=== PATIENT | female | born 1950 | race Hispanic/Latino ===

== ENCOUNTER 2017-09-20 06:21 | Day surgery (SDC) | payer OTHER ==
[2017-09-15 11:00] LABS: Absolute Lymphocytes (CBC) 1.3 K/uL (0.7-4.9); Absolute Monocytes 0.4 K/uL (0.1-1.3); Absolute Neutrophil 2.6 K/uL (1.8-8.0); Basophils % 0.7 % (0-1.3); Eosinophils % 1.7 % (0-4.4); Hematocrit 42.3 % (36.0-45.0); Lymphocytes % 30.3 % (15.3-44.8); MCH 29.1 pg (27.0-35.0); MCV 86.1 fL (80-100); MPV 10.1 fL (7.6-11.3); Monocytes % 8.4 % (3.3-12.3); RBC Red Blood Cell Count 4.91 M/uL (3.86-4.86)
[2017-09-15 11:02] LABS: Protime INR 0.94
[2017-09-15 11:08] LABS: BUN Blood Urea Nitrogen 17 mg/dL (6-20); Bicarbonate 28 mEq/L (21-31); Glucose Level 207 mg/dL (65-120); Potassium 4.6 mEq/L (3.6-5.0); Sodium Level 139 mEq/L (135-145)
--- NOTE | 2017-09-15 13:37 | EKG ---
Test Date: 2017-09-15 Test Time: 10:09:57 Editorial Project Manager: LORENA MEASUREMENT RESULTS: Intervals: Rate: 84 DC: 134 QRSD: 80 QT: 364 QTc: 430 [place]: P: 1 DC: 134 QRS: -4 T: 19 INTERPRETIVE STATEMENTS: Normal sinus rhythm Possible Inferior infarct, age undetermined Cannot rule out Anterior infarct, age undetermined Abnormal ECG Compared to ECG 02/23/2016 10:01:14 Myocardial infarct finding now present Electronically Signed On 09-15-17 13:36:33 CDT by Niko Velez
[2017-09-20] MEDS ORDERED: NA CIT/CITRIC AC 30 ML ORAL UDC ONE (06:37)
[2017-09-20] MEDS ORDERED: NA CHLORIDE 0.9% 1,000 ML ONE (06:47)
[2017-09-20] MEDS ORDERED: CEFAZOLIN/SWI 1gm 1 GM/10 ML SYR ONE (06:47)
[2017-09-20] MEDS ORDERED: PROPOFOL 200 MG/20 ML VIAL IV ONE ×2 (07:22→11:07)
[2017-09-20] MEDS ORDERED: LIDOCAINE 1% MPF 5 ML VIAL ONE ×2 (07:23→11:07)
[2017-09-20] MEDS ORDERED: FENTANYL CITR 100 MCG/2 ML ONE ×2 (07:23→11:07)
[2017-09-20] MEDS ORDERED: MIDAZOLAM HCL 2 MG/2 ML INJ ONE ×2 (07:23→11:07)
[2017-09-20] MEDS ORDERED: ONDANSETRON HCL 40 MG/20 ML VIAL ONE (07:23)
[2017-09-20] MEDS: BUPIVACAINE 0.25% PF 30 ML VIAL ONE ×2 (08:02→08:25)
--- NOTE | 2017-09-20 08:46 | P.BOP ---
Preoperative diagnosis: left carpal tunnel syndrome, left long finger trigger digit Postoperative diagnosis: same Primary procedure: left carpal tunnel release Secondary procedure: left long finger A1 micah release Sales Development Manager: NONE,NONE Estimated blood loss: <5cc Specimen: none Findings: see dictation Anesthesia: General Complications: None Implants: none Fluids & blood products: per anesthesia: TT: 33 mins @ 250mmHg Transferred to: Recovery Room Condition: Good
[2017-09-20 14:06] VITALS: BP 115/70; TEMP 97.1; O2SAT 97
--- NOTE | 2017-09-21 12:07 | OP ---
Date of Procedure: 09/20/2017 Surgeon: Tano Gay MD Preoperative Diagnoses: 1.Left carpal tunnel syndrome. 2.Left long finger trigger digit. Postoperative Diagnoses: 1.Left carpal tunnel syndrome. 2.Left long finger trigger digit. Procedure Performed: 1.Left open carpal tunnel release. 2.Left long finger A1 micah release. Anesthesia: General LMA. Estimated Blood Loss: Less than 5 cc. Complications: None. Implants: None. Fluids: Per Anesthesia record. Tourniquet Time: 33 minutes at 250 mmHg. Indication For Procedure: Lala is a 67-year-old female, who presents to my clinic with signs and s ymptoms and EMG nerve conduction study findings consistent with left carpal tunnel syndrome and left long finger trigger digit. I discussed with the patient at length risks and benefits associated with operative and nonoperative treatment. She expressed understanding and elected to proceed with opera tive treatment. Description Of Procedure: After informed consent was obtained, the patient was identified in the pre operative holding area. The left upper extremity was marked, left long finger was marked. The patie nt was then taken back to the operating room, transferred to the operative table in a supine fashion, and placed under general LMA anesthesia. The left upper extremity was then prepped and draped in [facility] sterile fashion. A time-out was initiated. The correct patient and procedure were confirmed and identified. The patient did receive her preoperative prophylactic antibiotics. The left upper extr emity was then exsanguinated and the tourniquet was inflated to 250 mmHg. Attention was first taken to the carpal tunnel. An approximately 2.5 cm longitudinal incision was made just ulnar to the javed r thenar crease. Dissection was then taken down to the palmar fascia. A [place] elevator was then tere niall deep to the palmar fascial and distal to proximal fashion to protect the median nerve, and a jaz n 15-blade was then used to release the transverse carpal ligament in a distal to proximal fashion, a gain the [place] elevator was protecting the nerve throughout the release. Metzenbaum was then used to complete the release as well as remove any fascial bands remaining. Using direct visualization, it was noted that the transverse carpal ligament was released fully with the median nerve deep to it. N ext, attention was taken to the long finger A1 micah release. Approximately 1 cm incision was made and centered over the A1 micah metacarpal head of the volar aspect of the long finger. Dissection w as then taken down to the A1 micah and a 15-blade was then used to release A1 micah over the flexor tendon. Once full release of the A1 micah was completed, there was noted to be some synovial fluid that was expressed from within sheath. A Ragnell was then used to bring the flexor tendons out the incision to ensure full release of the A1 micah. There was no triggering noted. The wounds were th en irrigated thoroughly with normal saline and skin was approximated using a 5-[address] essings were placed. The patient was awakened and transferred to the PACU in stable condition. Postoperative Plan: She will be nonweightbearing of her left upper extremity. She will begin workin g on range of motion exercises of her left hand. She will follow up in my clinic next week for wound check. JUANY/KADI Voice ID: [id number] Report ID: [id number]
== END 2017-09-20 09:40 | disposition home or self-care (01) ==
LOC: OR 06:21
PROVIDERS: ATTEND Orthopaedic Surgery Sports Medicine
PROC: 01N50ZZ Release Median Nerve, Open Approach (ICD-10-PCS; principal; 2017-09-20 07:30)
PROC: 0LN80ZZ Release Left Hand Tendon, Open Approach (ICD-10-PCS; 2017-09-20 07:30)
DX: G56.02 Carpal tunnel syndrome, left upper limb (principal); M65.332 Trigger finger, left middle finger; E11.9 Type 2 diabetes mellitus without complications; I10 Essential (primary) hypertension; K21.9 Gastro-esophageal reflux disease without esophagitis; Z95.0 Presence of cardiac pacemaker; Z79.01 Long term (current) use of anticoagulants; Z79.82 Long term (current) use of aspirin; Z86.73 Personal history of transient ischemic attack (TIA), and cerebral infarction without residual deficits; Z83.3 Family history of diabetes mellitus; Z82.49 Family history of ischemic heart disease and other diseases of the circulatory system
CPT/HCPCS: 26055; 36415; 64721; 80048; 82962 ×2; 85025; 85610; 85730; 93005; J0690; J2250; J2405; J3010; J7030

== ENCOUNTER 2017-10-12 23:34 | Emergency (ER) | payer OTHER ==
[2017-10-13 00:23] LABS: Absolute Monocytes 0.4 K/uL (0.1-1.3); Absolute Neutrophil 3.1 K/uL (1.8-8.0); Basophils % 0.4 % (0-1.3); Eosinophils % 1.2 % (0-4.4); Hematocrit 42.3 % (36.0-45.0); Lymphocytes % 35.4 % (15.3-44.8); MCH 29.1 pg (27.0-35.0); MCV 88.1 fL (80-100); MPV 10.6 fL (7.6-11.3); Monocytes % 7.5 % (3.3-12.3)
[2017-10-13 01:23] LABS: Urine Blood TRACE (NEG); Urine Glucose 2+ (NEG); Urine Protein NEGATIVE (NEG); Urine Specific Gravity 1.015 (1.005-1.030); Urine pH 5.5 (5.0-7.0)
[2017-10-13 02:06] LABS: Urine Bacteria >50 /HPF (<20); Urine Culture Reflex Order REFLEXED; Urine RBC NONE SEEN /HPF (NONE SEEN)
[2017-10-13 03:01] LABS: Protime INR 1.01
[2017-10-13 03:16] LABS: ALT/SGPT 21 U/L (12-78); AST/SGOT 19 U/L (15-37); Albumin 3.5 g/dL (3.4-5.0); Alkaline Phosphatase 148 U/L (45-117); BUN Blood Urea Nitrogen 17 mg/dL (7-18); Bicarbonate 28 mmol/L (21-32); Bilirubin Direct < 0.1 mg/dL (0-0.2); Bilirubin Total 0.4 mg/dL (0.2-1.0); Creatine Phosphokinase 75 U/L (26-192); Glucose Level 189 mg/dL (74-106); Lipase 152 U/L (73-393); Magnesium 1.7 mg/dL (1.8-2.4); Potassium 3.8 mmol/L (3.5-5.1); Protein, Total 6.7 g/dL (6.4-8.2); Sodium Level 140 mmol/L (136-145)
--- NOTE | 2017-10-13 03:45 | ER ---
Nurse's Notes [facility] Name: Lala Barrett Age: 67 yrs Sex: Female : 1950 Arrival Date: 10/12/2017 Time: 23:35 Bed 30 Private MD: Anup Edouard E Diagnosis: Acute dizziness Presentation: 10/12 23:40 Presenting complaint: Patient states: started feeling weak and dizzy at 2230. mb3 Transition of care: patient was not received from another setting of care. Onset of symptoms was October 12, 2017 at 22:30. Risk Assessment: Do you want to hurt yourself or someone else? Patient reports no desire to harm self or others. Initial Sepsis Screen: Does the patient meet any 2 criteria? No. Patient's initial sepsis screen is negative. Does the patient have a suspected source of infection? No. Patient's initial sepsis screen is negative. Care prior to arrival: Glucose check: 265. 23:40 Method Of Arrival: EMS: [facility] mb3 23:40 Acuity: ADOLPH 3 mb3 Historical: - Allergies: 23:45 No Known Allergies; mb3 - PMHx: 23:45 Headaches; Hyperlipidemia; Hypertension; stroke; TIA; Diabetes - NIDDM; Pacemaker; mb3 - Immunization history:: Adult Immunizations up to date. - Social history:: Smoking status: Patient/guardian denies using tobacco, never smoked. - Ebola Screening: : Patient denies travel to an Ebola-affected area in the 21 days before illness onset No symptoms or risks identified at this time. - Family history:: not pertinent. - Hospitalizations: : No recent hospitalization is reported. Screenin:45 Abuse screen: Denies threats or abuse. Nutritional screening: No deficits noted. mb3 Tuberculosis screening: No symptoms or risk factors identified. Fall Risk No fall in past 12 months (0 pts). Secondary diagnosis (15 points) IV access (20 points). Ambulatory Aid- None/Bed Rest/Nurse Assist (0 pts). Gait- Normal/Bed Rest/Wheelchair (0 pts) Mental Status- Oriented to own ability (0 pts). Total Han Fall Scale indicates Low Risk Score (25-44 pts). Fall prevention measures have been instituted. Side Rails Up X 2 Placed close to Nursing Station Frequent Obs/Assesments occuring As available Patient and Family Educated on Fall Prevention Program and strategies. Assessment: 23:50 General: Appears in no apparent distress. comfortable, Behavior is calm, cooperative, mb3 appropriate for age. Pain: Denies pain. Neuro: Level of Consciousness is awake, alert, obeys commands, Oriented to person, place, time, situation, Appropriate for age Siene Maker are equal bilaterally Moves all extremities. Full function Speech is normal, Facial symmetry appears normal, Pupils are PERRLA. Cardiovascular: Heart tones present Capillary refill < 3 seconds Patient's skin is warm and dry. Pulses are all present. Respiratory: Airway is patent Respiratory effort is even, unlabored, Respiratory pattern is regular, symmetrical. GI: Abdomen is round Bowel sounds present X 4 quads. Abd is soft and non tender. 10/13 01:35 Reassessment: Patient and/or family updated on plan of care and expected duration. Pain mb3 level reassessed. Patient is alert, oriented x 3, equal unlabored respirations, skin warm/dry/pink. Patient states feeling better. Patient states symptoms have improved. 02:41 Reassessment: labs recollected and sent to lab Patient denies pain at this time. mb3 02:42 Reassessment: Patient and/or family updated on plan of care and expected duration. Pain mb3 level reassessed. Patient is alert, oriented x 3, equal unlabored respirations, skin warm/dry/pink. 04:05 Reassessment: pt is A\T\O x 4, states she is feeling better, speech clear, verbalized bb understanding of and agrees to plan of care discharge instructions given pt ambulated with steady gait to exit accompanied by family. Vital Signs: 10/12 23:42 BP 158 / 74; Pulse 89; Resp 18; Temp 98.7(O); Pulse Ox 96% on R/A; Weight 66.68 kg; mb3 Height 5 ft. 2 in. (157.48 cm); Pain 0/10; 10/13 01:34 BP 145 / 75; Pulse 93; Resp 18; Pulse Ox 96% on R/A; mb3 02:42 BP 147 / 68; Pulse 84; Resp 18; Pulse Ox 96% on R/A; mb3 04:03 BP 138 / 76; Pulse 81; Resp 16 S; Temp 97.8(O); Pulse Ox 93% on R/A; bb 10/12 23:42 Body Mass Index 26.89 (66.68 kg, 157.48 cm) 3 ED Course: 10/12 23:35 Patient arrived in ED. ds1 23:35 Anup Edouard MD is Private Physician. ds 23:39 Anup Barraza MD is Attending Physician. 23:39 Ralf Watts, FREDRICK is Primary Nurse. mb3 23:42 Triage completed. mb3 10/13 00:00 Bed in low position. Call light in reach. Side rails up X2. Pulse ox on. NIBP on. tl3 00:00 Inserted saline lock: 22 gauge in right antecubital area, using aseptic technique. tl3 Blood collected. 00:[address] via stretcher. 00:49 CT completed. Patient tolerated procedure well. Patient moved back from CT. kw1 00:52 CT Head Brain wo Cont In Process Unspecified. EDNM 03:43 Dariusz Enrique MD is Referral Physician. wa 03:43 Bentley Vinson MD is Referral Physician. wa 04:05 No provider procedures requiring assistance completed. IV discontinued, intact, bb bleeding controlled, No redness/swelling at site. Pressure dressing applied. Administered Medications: No medications were administered Outcome: 03:44 Discharge ordered by . wa 04:04 Discharged to home ambulatory, with family. bb 04:04 Condition: stable 04:04 Discharge instructions given to patient, family, Instructed on discharge instructions, follow up and referral plans. medication usage, Demonstrated understanding of instructions, follow-up care, medications, Prescriptions given X 1. 04:06 Patient left the ED. bb Addendum: 10/16/2017 11:55 Addendum: Culture Results: Positive urine culture. Bacteria is resistant to, has i w intermediate sensitivity, or is not tested against prescribed antibiotics. Report given to XIOMARA for further evaluation and then to travel information center supervisor for follow up with patient. Phone call Attempt #1 pt asymptomatic for urinary symptoms, is due to follow up with casting machine operator tomorrow. Signatures: Dispatcher [employer] Saima Tucker Demi ds1 Jennifer Abbott RN RN bb Bety Meeks RN RN Anup Barraza MD MD wa Wilhelm, Kimberly kw1 Jennifer Phillips RN RN tl3 Watts, Ralf, RN RN mb3
--- NOTE | 2017-10-13 03:45 | EDPHYS ---
Physician Documentation [facility] Name: Lala Barrett Age: 67 yrs Sex: Female : 1950 Arrival Date: 10/12/2017 Time: 23:35 Bed 30 Private MD: Anup Edouard E ED Physician Anup Barraza HPI: 10/13 02:05 This 67 yrs old Female presents to ER via EMS with complaints of Weakness. wa 02:05 The patient presents to the emergency department with sudden onset dizziness. states wa she felt she was going to pass out. Onset: The symptoms/episode began/occurred just prior to arrival. Context: occurred at home, occurred while the patient was at rest. Associated signs and symptoms: Pertinent positives: dizziness, near-syncope, weakness, Pertinent negatives: altered mental status, chills, fever, headache. Severity of symptoms: At their worst the symptoms were moderate in the emergency department the symptoms have improved. Patient's baseline: Neuro: alert and fully oriented, Motor: no deficits, Ambulation: walks without assistance, Speech: normal, The patient has a previous history of dysrrhythmia. Current symptoms: states feels better. states used to feel this way before she got a pacemaker. The patient has not recently seen a physician. Historical: - Allergies: 10/12 23:45 No Known Allergies; mb3 - PMHx: 23:45 Headaches; Hyperlipidemia; Hypertension; stroke; TIA; Diabetes - NIDDM; Pacemaker; mb3 - Immunization history:: Adult Immunizations up to date. - Social history:: Smoking status: Patient/guardian denies using tobacco, never smoked. - Ebola Screening: : Patient denies travel to an Ebola-affected area in the 21 days before illness onset No symptoms or risks identified at this time. - Family history:: not pertinent. - Hospitalizations: : No recent hospitalization is reported. ROS: 10/13 02:11 Constitutional: Negative for fever, chills, and weight loss, Eyes: Negative for injury, wa pain, redness, and discharge, ENT: Negative for injury, pain, and discharge, Neck: Negative for injury, pain, and swelling, Abdomen/GI: Negative for abdominal pain, nausea, vomiting, diarrhea, and constipation, Back: Negative for injury and pain, MS/Extremity: Negative for injury and deformity, Skin: Negative for injury, rash, and discoloration. Cardiovascular: Negative for chest pain, edema, orthopnea, palpitations. Respiratory: Positive for shortness of breath, Negative for cough, dyspnea on exertion, hemoptysis, sputum production, wheezing. Neuro: Positive for dizziness, weakness. All other systems are negative. Exam: 02:12 Constitutional: This is a well developed, well nourished patient who is awake, alert, wa and in no acute distress. Head/Face: Normocephalic, atraumatic. Eyes: Pupils equal round and reactive to light, extra-ocular motions intact. Lids and lashes normal. Conjunctiva and sclera are non-icteric and not injected. Cornea within normal limits. Periorbital areas with no swelling, redness, or edema. ENT: Nares patent. No nasal discharge, no septal abnormalities noted. Tympanic membranes are normal and external auditory canals are clear. Oropharynx with no redness, swelling, or masses, exudates, or evidence of obstruction, uvula midline. Mucous membranes moist. Neck: Trachea midline, no thyromegaly or masses palpated, and no cervical lymphadenopathy. Supple, full range of motion without nuchal rigidity, or vertebral point tenderness. No Meningismus. Chest/axilla: Normal chest wall appearance and motion. Nontender with no deformity. No lesions are appreciated. Cardiovascular: Regular rate and rhythm with a normal S1 and S2. No gallops, murmurs, or rubs. Normal PMI, no JVD. No pulse deficits. Respiratory: Lungs have equal breath sounds bilaterally, clear to auscultation and percussion. No rales, rhonchi or wheezes noted. No increased work of breathing, no retractions or nasal flaring. Abdomen/GI: Soft, non-tender, with normal bowel sounds. No distension or tympany. No guarding or rebound. No evidence of tenderness throughout. Back: No spinal tenderness. No costovertebral tenderness. Full range of motion. Skin: Warm, dry with normal turgor. Normal color with no rashes, no lesions, and no evidence of cellulitis. MS/ Extremity: Pulses equal, no cyanosis. Neurovascular intact. Full, normal range of motion. Psych: Awake, alert, with orientation to person, place and time. Behavior, mood, and affect are within normal limits. 02:12 Neuro: Orientation: is normal, Mentation: is normal, Cranial nerves: grossly normal, Cerebellar function: is grossly normal, Motor: is normal. Vital Signs: 10/12 23:42 BP 158 / 74; Pulse 89; Resp 18; Temp 98.7(O); Pulse Ox 96% on R/A; Weight 66.68 kg; mb3 Height 5 ft. 2 in. (157.48 cm); Pain 0/10; 10/13 01:34 BP 145 / 75; Pulse 93; Resp 18; Pulse Ox 96% on R/A; mb3 02:42 BP 147 / 68; Pulse 84; Resp 18; Pulse Ox 96% on R/A; mb3 04:03 BP 138 / 76; Pulse 81; Resp 16 S; Temp 97.8(O); Pulse Ox 93% on R/A; bb 10/12 23:42 Body Mass Index 26.89 (66.68 kg, 157.48 cm) mb3 MDM: 10/12 23:39 Patient medically screened. hi 10/13 02:13 ED course: sudden onset lightheartedness. assoc w/ SOB. states feels better. will work wa up. consider ACS vs dysrhythmia in a pt with pacemaker for possible sick sinus syndrome. 03:36 Test interpretation: by ED physician or midlevel provider: EKG: HR 89. diffuse, wa non-specific ST-T changes. 03:37 Data reviewed: vital signs, nurses notes. Test interpretation: by ED physician or wa midlevel provider: labs noted for hyperglycemia. bacteriuria. low magnesium. . Response to treatment: the patient's symptoms have markedly improved after treatment. ED course: asymptomatic at time of d/c. upon further query, pt denies ever having SOB during episode of dizziness. insists similar symptoms prior to acquiring pacemaker. will have f/u with neurology and cardiology. 10/13 00:07 Order name: Urine Microscopic Only; Complete Time: 02:10/13 00:07 Order name: Basic Metabolic Panel; Complete Time: :10/13 00:07 Order name: CBC with Diff; Complete Time: :10/13 00:07 Order name: CPK; Complete Time: 03:10/13 00:07 Order name: Hepatic Function; Complete Time: :10/13 00:07 Order name: Lipase; Complete Time: 03:35 hi 10/13 00:07 Order name: CT Head Brain wo Cont hi 10/13 00:07 Order name: Magnesium; Complete Time: 03:35 hi 10/13 00:07 Order name: Protime (+inr); Complete Time: 03:35 hi 10/13 00:07 Order name: Troponin (emerg Dept Use Only); Complete Time: 03:35 hi 10/13 00:07 Order name: EKG; Complete Time: 00:08 10/13 00:07 Order name: Cardiac monitoring; Complete Time: : hi 10/13 01:15 Order name: Urine Dipstick--Ancillary (enter results); Complete Time: : [facility] 10/13 02:06 Order name: Urine Culture [facility] 10/13 00:07 Order name: EKG - Nurse/Tech; Complete Time: :36 hi 10/13 00:07 Order name: IV Saline Lock; Complete Time: 00:09 hi 10/13 00:07 Order name: Labs collected and sent; Complete Time: 00:10 hi 10/13 00:07 Order name: NPO; Complete Time: 00:09 hi 10/13 00:07 Order name: O2 Per Protocol; Complete Time: 00: hi 10/13 00:07 Order name: O2 Sat Monitoring; Complete Time: 00: hi 10/13 00:07 Order name: Urine Dipstick-Ancillary (obtain specimen); Complete Time: 01:36 hi Administered Medications: No medications were administered Disposition: 10/13/17 03:44 Discharged to Home. Impression: Acute dizziness. - Condition is Stable. - Discharge Instructions: Dizziness, [id number]. - Prescriptions for Keflex 500 mg Oral Capsule - take 1 capsule by ORAL route every 8 hours for 5 days; 15 capsule. - Medication Reconciliation Form, Thank You Letter, Antibiotic Education, Prescription Opioid Use form. - Follow up: Dariusz Enrique MD; Reason: for evaluation of dizziness. Follow up: Bentley Vinson MD; When: 2 - 3 days; Reason: Recheck today's complaints. - Problem is new. - Symptoms have improved. - Notes: follow up with your separator operator and the neurologist prescribed you for further testing to look for the reason for your continued symptoms Signatures: Dispatcher [employer] Jennifer Babcock RN RN bb Anup Barraza MD MD wa Barnett, Mark RN RN mb3 Corrections: (The following items were deleted from the chart) 04:06 03:44 10/13/2017 03:44 Discharged to Home. Impression: Acute dizziness. Condition is bb Stable. Forms are Medication Reconciliation Form, Thank You Letter, Antibiotic Education, Prescription Opioid Use. Follow up: Dariusz Enrique; Reason: for evaluation of dizziness. Follow up: Bentley Vinson; When: 2 - 3 days; Reason: Recheck today's complaints. Problem is new. Symptoms have improved. mayra
[2017-10-13 04:14] VITALS: BP 138/76; TEMP 97.8; O2SAT 93
--- NOTE | 2017-10-13 06:23 | EKG ---
Test Date: 2017-10-13 Test Time: 01:32:48 Early Childhood Worker: HENRI MEASUREMENT RESULTS: Intervals: Rate: 89 WI: 142 QRSD: 76 QT: 356 QTc: 433 [place]: P: 36 WI: 142 QRS: 26 T: 27 INTERPRETIVE STATEMENTS: Normal sinus rhythm Low voltage QRS Cannot rule out Anterior infarct, age undetermined Abnormal ECG Compared to ECG 09/15/2017 10:09:57 Low QRS voltage now present Myocardial infarct finding still present Electronically Signed On 10-13-17 06:23:00 CDT by Niko Velez
--- NOTE | 2017-10-13 08:55 | RAD REPORT ---
EXAM DESCRIPTION: CT - Head Brain Wo Cont - 10/13/2017 5:28 am CLINICAL HISTORY: DIZZINESS Syncope COMPARISON: Head Brain Wo Cont dated 09/03/2015; HEAD BRAIN W O CONTRAST dated 01/19/2013 TECHNIQUE: All CT scans are performed using dose optimization technique as appropriate and may inclu de automated exposure control or mA/KV adjustment according to patient size. FINDINGS: No intracranial hemorrhage, hydrocephalus or extra-axial fluid collection.Mild generalized brain atrophy is present with mild periventricular and deep white matter chronic microvascular ische mat changes.No areas of brain edema or evidence of midline shift. The paranasal sinuses and mastoids are clear. The calvarium is intact. IMPRESSION: No acute intracranial abnormality.
== END 2017-10-13 04:06 | disposition home or self-care (01) ==
LOC: ER 23:34
DX: R42 Dizziness and giddiness (principal); I10 Essential (primary) hypertension; Z95.0 Presence of cardiac pacemaker; Z86.73 Personal history of transient ischemic attack (TIA), and cerebral infarction without residual deficits
CPT/HCPCS: 36415; 70450; 80048; 80076; 81003; 81015; 82550; 83690; 83735; 84484; 85025; 85610; 87077; 87086; 87088; 87186; 93005; 99284

== ENCOUNTER 2018-03-31 00:16 | Emergency (ER) | payer OTHER ==
[2018-03-31] MEDS ORDERED: INSULIN -REGULAR HUMAN 50 UNIT/0.5 ML ML ONE (00:47)
[2018-03-31] MEDS ORDERED: NA CHLORIDE 0.9% 1,000 ML ONE (00:47)
[2018-03-31 01:46] LABS: Absolute Lymphocytes (CBC) 1.7 K/uL (0.7-4.9); Absolute Monocytes 0.4 K/uL (0.1-1.3); Absolute Neutrophil 3.1 K/uL (1.8-8.0); Basophils % 0.8 % (0-1.3); Eosinophils % 0.9 % (0-4.4); Lymphocytes % 31.5 % (15.3-44.8); MCH 30.2 pg (27.0-35.0); MPV 10.6 fL (7.6-11.3); Monocytes % 8.1 % (3.3-12.3); RBC Red Blood Cell Count 4.83 M/uL (3.86-4.86)
[2018-03-31 01:49] LABS: Albumin 3.8 g/dL (3.4-5.0); Bilirubin Total 0.4 mg/dL (0.2-1.0); Potassium 4.3 mmol/L (3.5-5.1); Protein, Total 7.4 g/dL (6.4-8.2)
--- NOTE | 2018-03-31 02:17 | ER ---
Nurse's Notes [facility] Name: Lala Barrett Age: 68 yrs Sex: Female : 1950 Arrival Date: 03/31/2018 Time: 00:17 Bed 6 Private MD: Diagnosis: Elevated blood glucose level Presentation: 03/31 00:18 Presenting complaint: EMS states: Family reported initial blood sugar read HI and ea second one read 549. Pt complained of feeling light headed and groggy. Transition of care: patient was not received from another setting of care. Onset of symptoms was March 31, 2018. Risk Assessment: Do you want to hurt yourself or someone else? Patient reports no desire to harm self or others. Initial Sepsis Screen: Does the patient meet any 2 criteria? HR > 90 bpm. Does the patient have a suspected source of infection? No. Patient's initial sepsis screen is negative. Care prior to arrival: None. 00:18 Method Of Arrival: EMS: [facility] ea 00:18 Acuity: ADOLPH 3 ea Historical: - Allergies: 00:26 No Known Allergies; ea - Home Meds: 00:26 metformin 1,000 mg Oral tab [Active]; Lyrica 75mg Oral [Active]; ea - PMHx: 00:26 TIA; stroke; Diabetes - NIDDM; Headaches; Hyperlipidemia; Hypertension; Pacemaker; ea - PSHx: 00:26 Appendectomy; "right arm surgery"; Hysterectomy; ea - Immunization history:: Adult Immunizations up to date. - Social history:: Smoking status: Patient/guardian denies using tobacco, Patient/guardian denies using alcohol, street drugs, The patient lives with family. - Ebola Screening: : No symptoms or risks identified at this time. - Family history:: not pertinent. - Hospitalizations: : No recent hospitalization is reported. Screenin:27 Abuse screen: Denies threats or abuse. Nutritional screening: No deficits noted. ea Tuberculosis screening: No symptoms or risk factors identified. Fall Risk None identified. Assessment: 00:28 General: Appears uncomfortable, Behavior is calm, cooperative, appropriate for age. ea Pain: Denies pain. Neuro: Level of Consciousness is awake, alert, obeys commands, Oriented to person, place, time, situation, Reports "I feel light headed". Cardiovascular: Patient's skin is warm and dry. Respiratory: Airway is patent Respiratory effort is even, unlabored, Respiratory pattern is regular, symmetrical. Respiratory:. GI: Abdomen is non-distended. : No signs and/or symptoms were reported regarding the genitourinary system. EENT: No signs and/or symptoms were reported regarding the EENT system. Derm: Skin is pink, warm \\T\\ dry. 01:50 Reassessment: Patient and/or family updated on plan of care and expected duration. Pain ea level reassessed. Patient is alert, oriented x 3, equal unlabored respirations, skin warm/dry/pink. 02:50 Reassessment: Patient and/or family updated on plan of care and expected duration. Pain ea level reassessed. Patient is alert, oriented x 3, equal unlabored respirations, skin warm/dry/pink. 03:02 Reassessment: Patient and/or family updated on plan of care and expected duration. Pain ea level reassessed. Patient is alert, oriented x 3, equal unlabored respirations, skin warm/dry/pink. Discharge instructions given to patient, verbalized the understanding of isntruction. Vital Signs: 00:21 BP 170 / 88; Pulse 98; Resp 16; Temp 97.2; Pulse Ox 98% on R/A; Weight 64.86 kg; Height ea 5 ft. 2 in. (157.48 cm); Pain 0/10; 01:50 BP 168 / 70; Pulse 80; Resp 18; Pulse Ox 98% ; ea 02:50 BP 160 / 62; Pulse 78; Resp 18; Pulse Ox 99% ; ea 00:21 Body Mass Index 26.15 (64.86 kg, 157.48 cm) ea ED Course: 00:17 Patient arrived in ED. ds1 00:18 Abilio Rios MD is Attending Physician. ma2 00:18 Shruthi Mariee RN is Primary Nurse. ea 00:21 Triage completed. ea 00:22 Patient has correct armband on for positive identification. Bed in low position. Call ea light in reach. Side rails up X2. 00:22 Patient placed in an exam room, on a stretcher, on pulse oximetry. ea 00:37 Inserted saline lock: 20 gauge in right forearm, using aseptic technique. Blood oe collected. 01:51 Notified ED physician of a critical lab result(s). blood glucose 492. 03:03 No provider procedures requiring assistance completed. IV discontinued, intact, ea bleeding controlled, No redness/swelling at site. Pressure dressing applied. Administered Medications: 00:38 Drug: Insulin Regular Human 5 units {Co-Signature: yoseph (Jennifer Abbott RN).} Route: IVP; ea Site: right antecubital; 03:01 Follow up: Response: Blood sugar is lowered ea 00:40 Drug: NS 0.9% 1000 ml Route: IV; Rate: 1 bolus; Site: right wrist; ea 01:15 Follow up: IV Status: Completed infusion ea Point of Care Testing: Blood Glucose: 00:27 Blood Glucose: 429 mg/dL; ea 01:48 Blood Glucose: 284 mg/dL; ea Ranges: Outcome: 02:16 Discharge ordered by . blade 03:03 Discharged to home ambulatory, with family. ea 03:03 Condition: improved 03:03 Discharge instructions given to patient, family, Instructed on discharge instructions, follow up and referral plans. Demonstrated understanding of instructions, follow-up care. 03:05 Patient left the ED. ea Signatures: Nga Goel, RN RN Jasmyne Perez ds1 Carlos Pearson Elena, RN RN ea Alzahri, Mohammad, MD MD ma2 Brenda Ballard RN bb
--- NOTE | 2018-03-31 02:17 | EDPHYS ---
Physician Documentation [facility] Name: Lala Barrett Age: 68 yrs Sex: Female : 1950 Arrival Date: 03/31/2018 Time: 00:17 Bed 6 Private MD: ED Physician Abilio Rios HPI: 03/31 00:35 This 68 yrs old Female presents to ER via EMS with complaints of High Blood ma2 Sugar. 00:35 The patient or guardian reports. Onset: The symptoms/episode began/occurred gradually, ma2 3 day(s) ago. Associated signs and symptoms: Pertinent negatives: None. anorexia, constipation, diaphoresis, hair loss, polydipsia. Current symptoms: In the emergency department the patient's symptoms are unchanged from the initial presentation. Unable to obtain HPI due to. The patient has experienced similar episodes in the past. here with elevated BS not taking her medication, has metformin prescribed still have some at home, no symptoms . Historical: - Allergies: 00:26 No Known Allergies; ea - Home Meds: 00:26 metformin 1,000 mg Oral tab [Active]; Lyrica 75mg Oral [Active]; ea - PMHx: 00:26 TIA; stroke; Diabetes - NIDDM; Headaches; Hyperlipidemia; Hypertension; Pacemaker; ea - PSHx: 00:26 Appendectomy; "right arm surgery"; Hysterectomy; ea - Immunization history:: Adult Immunizations up to date. - Social history:: Smoking status: Patient/guardian denies using tobacco, Patient/guardian denies using alcohol, street drugs, The patient lives with family. - Ebola Screening: : No symptoms or risks identified at this time. - Family history:: not pertinent. - Hospitalizations: : No recent hospitalization is reported. ROS: 00:35 Constitutional: Negative for fever, chills, and weight loss, Cardiovascular: Negative ma2 for chest pain, palpitations, and edema, Respiratory: Negative for shortness of breath, cough, wheezing, and pleuritic chest pain, Abdomen/GI: Negative for abdominal pain, nausea, diarrhea, and constipation. 00:35 All other systems are negative. Exam: 00:35 Constitutional: This is a well developed, well nourished patient who is awake, alert, ma2 and in no acute distress. Head/Face: Normocephalic, atraumatic. Chest/axilla: Normal chest wall appearance and motion. Nontender with no deformity. No lesions are appreciated. Cardiovascular: Regular rate and rhythm with a normal S1 and S2. No gallops, murmurs, or rubs. Normal PMI, no JVD. No pulse deficits. Respiratory: Lungs have equal breath sounds bilaterally, clear to auscultation and percussion. No rales, rhonchi or wheezes noted. No increased work of breathing, no retractions or nasal flaring. Abdomen/GI: Soft, non-tender, with normal bowel sounds. No distension or tympany. No guarding or rebound. No evidence of tenderness throughout. MS/ Extremity: Pulses equal, no cyanosis. Neurovascular intact. Full, normal range of motion. Neuro: Awake and alert, GCS 15, oriented to person, place, time, and situation. Cranial nerves II-XII grossly intact. Motor strength 5/5 in all extremities. Sensory grossly intact. Cerebellar exam normal. Normal gait. Vital Signs: 00:21 BP 170 / 88; Pulse 98; Resp 16; Temp 97.2; Pulse Ox 98% on R/A; Weight 64.86 kg; Height ea 5 ft. 2 in. (157.48 cm); Pain 0/10; 01:50 BP 168 / 70; Pulse 80; Resp 18; Pulse Ox 98% ; ea 02:50 BP 160 / 62; Pulse 78; Resp 18; Pulse Ox 99% ; ea 00:21 Body Mass Index 26.15 (64.86 kg, 157.48 cm) ea MDM: 00:19 Patient medically screened. ma2 00:35 Differential diagnosis: DKA, hyperglycemia, new onset diabetes. ma2 02:15 Data reviewed: vital signs, nurses notes, EMS record, lab test result(s), finger stick ma2 glucose. Counseling: I had a detailed discussion with the patient and/or guardian regarding: the historical points, exam findings, and any diagnostic results supporting the discharge/admit diagnosis, the presence of at least one elevated blood pressure reading (>120/80) during this emergency department visit, the need for outpatient follow up. Response to treatment: the patient's symptoms have resolved after treatment. 03/31 00:32 Order name: CMP; Complete Time: 02:14 ma2 03/31 00:32 Order name: CBC with Diff; Complete Time: 02:14 [facility] 03/31 00:32 Order name: Urine Dipstick-Ancillary (obtain specimen); Complete Time: 03:02 [facility] 03/31 02:15 Order name: Blood Sugar: repeat now please; Complete Time: 02:26 ma2 Administered Medications: 00:38 Drug: Insulin Regular Human 5 units {Co-Signature: yoseph (Jennifer Abbott RN).} Route: IVP; ea Site: right antecubital; 03:01 Follow up: Response: Blood sugar is lowered ea 00:40 Drug: NS 0.9% 1000 ml Route: IV; Rate: 1 bolus; Site: right wrist; ea 01:15 Follow up: IV Status: Completed infusion ea Point of Care Testing: Blood Glucose: 00:27 Blood Glucose: 429 mg/dL; ea 01:48 Blood Glucose: 284 mg/dL; ea Ranges: Critical Glucose Levels:Adult <50 mg/dl or >400 mg/dl <40 mg/dl or >180 mg/dl Disposition: 03/31/18 02:16 Discharged to Home. Impression: Elevated blood glucose level. - Condition is Stable. - Discharge Instructions: Type 2 Diabetes Mellitus, Diagnosis, Adult. - Medication Reconciliation Form, Thank You Letter, Antibiotic Education, Prescription Opioid Use form. - Follow up: Private Physician; When: Tomorrow; Reason: Continuance of care. - Problem is new. - Symptoms have improved. Signatures: Dispatcher [employer] Shruthi Capps RN RN ea Alzahri, Mohammad, MD MD tx2 Jennifer hameed Corrections: (The following items were deleted from the chart) 03:05 02:16 03/31/2018 02:16 Discharged to Home. Impression: Elevated blood glucose level. ea Condition is Stable. Forms are Medication Reconciliation Form, Thank You Letter, Antibiotic Education, Prescription Opioid Use. Follow up: Private Physician; When: Tomorrow; Reason: Continuance of care. Problem is new. Symptoms have improved. tx2
[2018-03-31 03:14] VITALS: TEMP 97.2
[2018-03-31 03:16] VITALS: BP 160/62; O2SAT 99
== END 2018-03-31 03:05 | disposition home or self-care (01) ==
LOC: ER 00:16
DX: E11.65 Type 2 diabetes mellitus with hyperglycemia (principal); I10 Essential (primary) hypertension; E78.5 Hyperlipidemia, unspecified; Z95.0 Presence of cardiac pacemaker
CPT/HCPCS: 36415; 80053; 82962 ×2; 85025; 96361; 96374; 99284; J7030

== ENCOUNTER 2018-04-19 01:27 | Emergency (ER) | payer OTHER ==
[2018-04-19 02:18] LABS: Protime INR 1.01
[2018-04-19 02:20] LABS: Absolute Lymphocytes (CBC) 1.4 K/uL (0.7-4.9); Absolute Monocytes 0.5 K/uL (0.1-1.3); Absolute Neutrophil 3.5 K/uL (1.8-8.0); Basophils % 0.5 % (0-1.3); Eosinophils % 1.6 % (0-4.4); Hematocrit 38.5 % (36.0-45.0); MPV 8.5 fL (7.6-11.3); Monocytes % 9.4 % (3.3-12.3); RBC Red Blood Cell Count 4.44 M/uL (3.86-4.86)
[2018-04-19 02:36] LABS: ALT/SGPT 19 U/L (12-78); AST/SGOT 6 U/L (15-37); Albumin 3.2 g/dL (3.4-5.0); Alkaline Phosphatase 183 U/L (45-117); BUN Blood Urea Nitrogen 21 mg/dL (7-18); Bicarbonate 29 mmol/L (21-32); Bilirubin Direct 0.2 mg/dL (0-0.2); Bilirubin Total 0.4 mg/dL (0.2-1.0); Glucose Level 370 mg/dL (74-106); Magnesium 1.8 mg/dL (1.8-2.4); NT PRO-BNP 39 pg/mL (<125); Potassium 4.4 mmol/L (3.5-5.1); Protein, Total 7.8 g/dL (6.4-8.2); Sodium Level 138 mmol/L (136-145); Troponin (Emerg Dept Use Only) < 0.02 ng/mL (0.0-0.045)
[2018-04-19] MEDS ORDERED: LEVALBUTEROL 1.25 MG/3 ML NEB ONE (03:10)
--- NOTE | 2018-04-19 03:20 | ER ---
Nurse's Notes [facility] Name: Lala Barrett Age: 68 yrs Sex: Female : 1950 Arrival Date: 04/19/2018 Time: 01:28 Bed 6 Private MD: Diagnosis: Acute bronchitis Presentation: 04/19 01:45 Presenting complaint: Patient states: productive cough for "weeks" pt denies seen PCP ak1 Dr. Edouard. pt denies fever. Transition of care: patient was not received from another setting of care. Onset of symptoms is unknown. Risk Assessment: Do you want to hurt yourself or someone else? Patient reports no desire to harm self or others. Care prior to arrival: None. 01:45 Method Of Arrival: Wheelchair ak1 01:45 Acuity: ADOLPH 3 ak1 02:58 Initial Sepsis Screen: Does the patient meet any 2 criteria? No. Patient's initial ak1 sepsis screen is negative. Does the patient have a suspected source of infection? No. Patient's initial sepsis screen is negative. Triage Assessment: 01:48 General: Appears in no apparent distress. Behavior is calm, cooperative, appropriate ak1 for age. Pain: Complains of pain in back and chest. EENT: No signs and/or symptoms were reported regarding the EENT system. Neuro: No deficits noted. Cardiovascular: No deficits noted. Respiratory: Reports cough that is productive, since "a couple of weeks". Respiratory: Reports pain with cough. GI: No signs and/or symptoms were reported involving the gastrointestinal system. : No signs and/or symptoms were reported regarding the genitourinary system. Derm: No signs and/or symptoms reported regarding the dermatologic system. Musculoskeletal: Reports pain in back. Historical: - Allergies: 01:48 No Known Allergies; ak1 - Home Meds: 01:48 clopidogrel 75 mg Oral tab [Active]; Invokana 300 mg Oral tab [Active]; Lyrica 75mg ak1 Oral [Active]; metformin 1,000 mg Oral tab [Active]; atorvastatin 20 mg Oral tab [Active]; - PMHx: 01:48 Diabetes - NIDDM; TIA; stroke; Pacemaker; Hypertension; Hyperlipidemia; Headaches; ak1 - PSHx: 01:48 Appendectomy; Hysterectomy; "right arm surgery"; Carpal Tunnel Repair; pacemaker; ak1 Cholecystectomy; cataracts; - Immunization history:: Adult Immunizations unknown, Pneumococcal vaccine is not up to date, Flu vaccine is not up to date. It has been more than one year since last vaccine. - Social history:: Smoking status: Patient/guardian denies using tobacco. - Ebola Screening: : No symptoms or risks identified at this time. Screenin:50 Abuse screen: Denies threats or abuse. Denies injuries from another. Nutritional ak1 screening: No deficits noted. Tuberculosis screening: Fall Risk None identified. Assessment: 01:51 Reassessment: Patient appears in no apparent distress at this time. No changes from ak1 previously documented assessment. see triage assessment\\E\\. 02:32 Reassessment: Patient appears in no apparent distress at this time. No changes from ak1 previously documented assessment. Patient and/or family updated on plan of care and expected duration. Pain level reassessed. Patient is alert, oriented x 3, equal unlabored respirations, skin warm/dry/pink. 03:23 Reassessment: Patient appears in no apparent distress at this time. No changes from ak1 previously documented assessment. Patient and/or family updated on plan of care and expected duration. Pain level reassessed. Patient is alert, oriented x 3, equal unlabored respirations, skin warm/dry/pink. Patient states feeling better. Patient states symptoms have improved. Vital Signs: 01:44 BP 136 / 110; Pulse 109; Resp 18; Temp 98.3(O); Pulse Ox 96% on R/A; Weight 64.86 kg ak1 (R); Height 5 ft. 2 in. (157.48 cm) (R); Pain 8/10; 02:31 BP 104 / 89; Pulse 99; Resp 18; Pulse Ox 94% on R/A; ak1 01:44 Body Mass Index 26.15 (64.86 kg, 157.48 cm) ak1 ED Course: 01:28 Patient arrived in ED. ag3 01:39 Hal Montez PA is PHCP. jmm 01:39 Jan Juarez MD is Attending Physician. jmm 01:44 Alicia Cuevas, RN is Primary Nurse. ak1 01:45 Triage completed. ak1 01:48 Arm band placed on Patient placed in an exam room, on a stretcher, on pulse oximetry. ak1 01:50 Patient has correct armband on for positive identification. Bed in low position. Call ak1 light in reach. Side rails up X 1. Adult w/ patient. Pulse ox on. NIBP on. 02:03 Procalcitonin Sent. ak1 02:04 Initial lab(s) drawn, by me, sent to lab. EKG done, by ED staff, reviewed by Hal SOLO Flu and/or RSV swab sent to lab. X-ray(s) taken. Inserted saline lock: 20 gauge in left antecubital area, using aseptic technique. Blood collected. 02:05 Flu Sent. ak1 02:06 X-ray completed. Portable x-ray completed in exam room. Patient tolerated procedure kw well. 02:07 XRAY Chest (1 view) In Process Unspecified. EDMS 03:19 Anup Edouard MD is Referral Physician. tw4 03:21 No provider procedures requiring assistance completed. IV discontinued, intact, ak1 bleeding controlled, No redness/swelling at site. Pressure dressing applied. Administered Medications: 03:03 Drug: Xopenex (3) 1.25 mg Route: Inhalation; ak1 Outcome: 03:19 Discharge ordered by . tw4 03:22 Discharged to home ambulatory, with family. ak1 03:22 Condition: improved 03:22 Discharge instructions given to patient, family, Instructed on discharge instructions, follow up and referral plans. medication usage, Demonstrated understanding of instructions, follow-up care, medications, Prescriptions given X 3. 03:30 Patient left the ED. ak1 Signatures: Dispatcher [employer] EDWA Hal Montez PA PA jmm Whitley, Kimberlee kw Krenek, Amber, RN RN ak1 Jan Juarez MD MD tw4 Brianda Chew ag3
--- NOTE | 2018-04-19 03:20 | EDPHYS ---
Physician Documentation [facility] Name: Lala Barrett Age: 68 yrs Sex: Female : 1950 Arrival Date: 04/19/2018 Time: 01:28 Bed 6 Private MD: ED Physician Jan Juarez HPI: 04/19 01:52 This 68 yrs old Female presents to ER via Wheelchair with complaints of Cough. jmm 01:52 The patient or guardian reports cough, described as moderate. Onset: The jmm symptoms/episode began/occurred gradually, 2 week(s) ago. Associated signs and symptoms: Pertinent positives: chest pain, Pertinent negatives: fever. This is a 68 year old female with a history of DM, CVA, HTN that presents to the ED with 2 weeks of cough with complaints of chest tightness and shortness of breath for 1 week. Patient denies fever. Denies infectious exposure. . Historical: - Allergies: 01:48 No Known Allergies; ak1 - Home Meds: 01:48 clopidogrel 75 mg Oral tab [Active]; Invokana 300 mg Oral tab [Active]; Lyrica 75mg ak1 Oral [Active]; metformin 1,000 mg Oral tab [Active]; atorvastatin 20 mg Oral tab [Active]; - PMHx: 01:48 Diabetes - NIDDM; TIA; stroke; Pacemaker; Hypertension; Hyperlipidemia; Headaches; ak1 - PSHx: 01:48 Appendectomy; Hysterectomy; "right arm surgery"; Carpal Tunnel Repair; pacemaker; ak1 Cholecystectomy; cataracts; - Immunization history:: Adult Immunizations unknown, Pneumococcal vaccine is not up to date, Flu vaccine is not up to date. It has been more than one year since last vaccine. - Social history:: Smoking status: Patient/guardian denies using tobacco. - Ebola Screening: : No symptoms or risks identified at this time. ROS: 01:52 Constitutional: Negative for fever, chills, and weight loss, Eyes: Negative for injury, jmm pain, redness, and discharge, ENT: Negative for injury, pain, and discharge, Neck: Negative for injury, pain, and swelling. 01:52 Cardiovascular: Positive for chest pain. 01:52 Respiratory: Positive for cough, shortness of breath. 01:52 All other systems are negative. Exam: 01:52 Constitutional: This is a well developed, well nourished patient who is awake, alert, jmm and in no acute distress. Head/Face: atraumatic. Eyes: EOMI, no conjunctival erythema appreciated ENT: Moist Mucus Membranes Neck: Trachea midline, Supple Chest/axilla: Normal chest wall appearance and motion. 01:52 Abdomen/GI: Non distended, soft Back: Normal ROM Skin: General appearance color normal MS/ Extremity: Moves all extremities, no obvious deformities appreciated, no edema noted to the lower extremities Neuro: Awake and alert, normal gait Psych: Behavior is normal, Mood is normal, Patient is cooperative and pleasant 01:52 Cardiovascular: Rate: normal, Rhythm: regular. 01:52 Respiratory: the patient does not display signs of respiratory distress, Respirations: normal, Breath sounds: are clear throughout. Vital Signs: 01:44 BP 136 / 110; Pulse 109; Resp 18; Temp 98.3(O); Pulse Ox 96% on R/A; Weight 64.86 kg ak1 (R); Height 5 ft. 2 in. (157.48 cm) (R); Pain 8/10; 02:31 BP 104 / 89; Pulse 99; Resp 18; Pulse Ox 94% on R/A; ak1 01:44 Body Mass Index 26.15 (64.86 kg, 157.48 cm) ak1 MDM: 01:50 Patient medically screened. [facility] 03:00 Data reviewed: vital signs, nurses notes. Counseling: I had a detailed discussion with monique the patient and/or guardian regarding: the historical points, exam findings, and any diagnostic results supporting the discharge/admit diagnosis, the need for outpatient follow up, to return to the emergency department if symptoms worsen or persist or if there are any questions or concerns that arise at home. ED course: Symptoms appear most likely related to bronchitis. I do not suspect PE. Troponin and EKG unremarkable. Patient will follow up with PCP tomorrow for reevaluation. patient is otherwise given strict return precautions. patient understood and agrees with the plan of care. . 03:02 Transition of care: After a detail discussion of the patient's case, care is [facility] transferred to Jan Juarez MD. 04/19 01:51 Order name: Basic Metabolic Panel; Complete Time: 02:38 monique 04/19 01:51 Order name: CBC with Diff; Complete Time: 02:22 [facility] 04/19 01:51 Order name: LFT's; Complete Time: 02:38 [facility] 04/19 01:51 Order name: Magnesium; Complete Time: 02:38 [facility] 04/19 01:51 Order name: NT PRO-BNP; Complete Time: 02:38 [facility] 04/19 01:51 Order name: PT-INR; Complete Time: 02:22 [facility] 04/19 01:51 Order name: Troponin (emerg Dept Use Only); Complete Time: 02:38 [facility] 04/19 01:51 Order name: XRAY Chest (1 view); Complete Time: 16:24 [facility] 04/19 02:01 Order name: Flu [facility] 04/19 02:01 Order name: Procalcitonin [facility] 04/19 02:01 Order name: Lactate [facility] 04/19 02:01 Order name: Influenza Screen (A ; Complete Time: 16:24 [facility] 04/19 02:01 Order name: Procalcitonin; Complete Time: 16:24 [facility] 04/19 02:01 Order name: Lactate; Complete Time: 02:38 [facility] 04/19 01:51 Order name: EKG; Complete Time: 01:52 [facility] 04/19 01:51 Order name: Cardiac monitoring; Complete Time: 02:05 [facility] 04/19 01:51 Order name: EKG - Nurse/Tech; Complete Time: 02:03 [facility] 04/19 01:51 Order name: IV Saline Lock; Complete Time: 02:03 [facility] 04/19 01:51 Order name: Labs collected and sent; Complete Time: 02:03 [facility] 04/19 01:51 Order name: O2 Per Protocol; Complete Time: 01:51 [facility] 04/19 01:51 Order name: O2 Sat Monitoring; Complete Time: 01:51 [facility] Administered Medications: 03:03 Drug: Xopenex (3) 1.25 mg Route: Inhalation; ak1 Disposition: 06:44 Co-signature as Attending Physician, Jan Juarez MD I agree with the assessment and tw4 plan of care. Disposition: 04/19/18 03:19 Discharged to Home. Impression: Acute bronchitis. - Condition is Stable. - Discharge Instructions: Acute Bronchitis, Adult. - Prescriptions for Albuterol Sulfate 2.5 mg /3 mL (0.083 %) Inhalation Solution for Nebulization - inhale 1 unit by NEBULIZATION route every 8 hours As needed; 1 box. Zithromax Z- Al 250 mg Oral Tablet - take 1 tablet by ORAL route as directed for 5 days Day 1 - take two (2) tablets one time. Day 2, 3, 4 , 5 take one (1) tablet once daily.; 6 tablet. Albuterol Sulfate 90 mcg/actuation - inhale 1-2 puff by INHALATION route every 4-6 hours; 1 Inhaler. - Medication Reconciliation Form, Thank You Letter, Antibiotic Education, Prescription Opioid Use form. - Follow up: Anup Edouard; When: Tomorrow; Reason: Recheck today's complaints, Continuance of care, Re-evaluation by your physician. Signatures: Dispatcher [employer] EDMS Hal Montez PA PA jmm Krenek, Amber RN RN ak1 Jan Juarez MD MD tw4 Corrections: (The following items were deleted from the chart) 03:30 03:19 04/19/2018 03:19 Discharged to Home. Impression: Acute bronchitis. Condition is ak1 Stable. Discharge Instructions: Acute Bronchitis, Adult. Prescriptions for Albuterol Sulfate 2.5 mg /3 mL (0.083 %) Inhalation Solution for Nebulization - inhale 1 unit by NEBULIZATION route every 8 hours As needed; 1 box, Zithromax Z-Al 250 mg Oral Tablet - take 1 tablet by ORAL route as directed for 5 days Day 1 - take two (2) tablets one time. Day 2, 3, 4 , 5 take one (1) tablet once daily.; 6 tablet, Albuterol Sulfate 90 mcg/actuation - inhale 1-2 puff by INHALATION route every 4-6 hours; 1 Inhaler. and Forms are Medication Reconciliation Form, Thank You Letter, Antibiotic Education, Prescription Opioid Use. Follow up: Anup Edouard; When: Tomorrow; Reason: Recheck today's complaints, Continuance of care, Re-evaluation by your physician. tw4
[2018-04-19 03:35] VITALS: TEMP 98.3
[2018-04-19 03:36] VITALS: BP 104/89; O2SAT 94
--- NOTE | 2018-04-19 07:35 | EKG ---
Test Date: 2018-04-19 Test Time: 01:56:59 Household Worker: ATIF MEASUREMENT RESULTS: Intervals: Rate: 108 DC: 160 QRSD: 76 QT: 320 QTc: 428 [facility]: P: -5 DC: 160 QRS: -3 T: 23 INTERPRETIVE STATEMENTS: Atrial-paced rhythm with frequent ventricular-paced complexes and with occasional sinus complexes Cannot rule out Inferior infarct, age undetermined Cannot rule out Anterior infarct, age undetermined Abnormal ECG Compared to ECG 10/13/2017 01:32:48 Sinus rhythm no longer present Myocardial infarct finding still present Electronically Signed On 04-19-18 07:34:21 [employer]CH[employer] ADMINISTRATOR by Niko Velez
--- NOTE | 2018-04-19 09:21 | RAD REPORT ---
EXAM DESCRIPTION: RAD - Chest Single View - 04/19/2018 2:08 am CLINICAL HISTORY: Chronic cough, shortness of breath A preliminary report was provided at the time of the study and reviewed prior to final report. COMPARISON: Chest exam August 2015 TECHNIQUE: AP portable chest image was obtained 0154 hours . FINDINGS: Lung volumes are low. No dense consolidation, mass or failure finding. Minimal left base s tranding is probably atelectasis rather than pneumonia. Correlation can be made with left lung base e xam findings. Left-sided pacemaker is in place. Heart and vasculature are normal. No measurable pleur al effusion and no pneumothorax. No acute bony abnormality seen. No acute aortic findings suspected. IMPRESSION: Limited shallow inspiration examination. Minimal stranding in the left lung base is probably atelectasis. Minimal pneumonia is not excluded.
== END 2018-04-19 03:30 | disposition home or self-care (01) ==
LOC: ER 01:27
DX: J20.9 Acute bronchitis, unspecified (principal); I10 Essential (primary) hypertension; E78.5 Hyperlipidemia, unspecified; E11.9 Type 2 diabetes mellitus without complications; Z95.0 Presence of cardiac pacemaker; Z86.73 Personal history of transient ischemic attack (TIA), and cerebral infarction without residual deficits
CPT/HCPCS: 36415; 71045; 80048; 80076; 83605; 83735; 83880; 84145; 84484; 85025; 85610; 87804; 93005; 99284

== ENCOUNTER 2020-02-23 14:37 | Emergency (ER) | payer OTHER ==
--- OUTSIDE RECORDS SUMMARY | 2020-02-23 14:39 | XMS REPORT | Continuity of Care Document ---
:1950 [address] [facility] t Address [address] [place] [address] Care Team Providers Name Role Phone Visit, Nurse Attending Clinician Unavailable Doctor Unassigned, Name Attending Clinician Unavailable Problems This patient has no known problems. Allergies, Adverse Reactions, Alerts This patient has no known allergies or adverse reactions. Medications This patient has no known medications. Procedures This patient has no known procedures. Encounters Start End Encounter Admission Attending Care Care Encounter Source Date/Time Date/Time Type Type Clinicians Facility Department ID 2019-11-12 2019-11-12 Nurse Visit, [facility] [id number] 13:05:46 16:03:27 Visit Nurse Ashley [id number] Suraj [id number] Dustin [id number] [address] 2019-11-12 2019-11-12 Orders Doctor GREG [id number] 00:00:00 00:00:00 Only Unassigned, REUBEN [id number] [place] [facility] [id number] Results This patient has no known results.
--- NOTE | 2020-02-23 17:29 | RAD REPORT ---
EXAM DESCRIPTION: CT - [id number] - 02/23/2020 5:20 pm CLINICAL HISTORY: Trauma, head and neck injury. headache, fall COMPARISON: Head C Spine Mpr Wo Con dated 02/23/2016 TECHNIQUE: Axial 5 mm thick images of the head were obtained. Axial 2 mm thick images of the cervical spine were obtained with sagittal and coronal reconstruction images generated and reviewed. All CT scans are performed using dose optimization technique as appropriate and may include automated exposure control or mA/KV adjustment according to patient size. FINDINGS: CT HEAD WITHOUT CONTRAST: No acute hemorrhage, hydrocephalus or extra-axial collection is identified.No areas of brain edema or midline shift. The paranasal sinuses and mastoids are clear.The calvarium is intact. CT CERVICAL SPINE WITHOUT CONTRAST: No fracture or subluxation.Mild cervical degenerative changes.No prevertebral soft tissues swelling i s identified. Mild vertebral atherosclerosis. IMPRESSION: No acute intracranial or cervical spine findings.
[2020-02-23 18:10] LABS: Absolute Lymphocytes (CBC) 1.5 K/uL (0.7-4.9); Basophils % 0.4 % (0-1.3); Hematocrit 38.6 % (36.0-45.0); Lymphocytes % 13.1 % (15.3-44.8); MPV 9.7 fL (7.6-11.3); RBC Red Blood Cell Count 4.43 M/uL (3.86-4.86)
[2020-02-23] MEDS ORDERED: FAMOTIDINE 20 MG/2 ML VIAL IV ONE (18:22)
[2020-02-23] MEDS ORDERED: MAGNES/ALUMIN/SIMET 30ML UCUP ONE (18:22)
[2020-02-23] MEDS ORDERED: LIDOCAINE VISCOUS 2% SOLN 15 ML UDC ONE (18:22)
[2020-02-23 18:23] LABS: Protime INR 0.92
[2020-02-23 18:36] LABS: ALT/SGPT 37 U/L (12-78); AST/SGOT 21 U/L (15-37); Albumin 3.9 g/dL (3.4-5.0); Alkaline Phosphatase 152 U/L (45-117); BUN Blood Urea Nitrogen 19 mg/dL (7-18); Bicarbonate 27 mmol/L (21-32); Bilirubin Direct < 0.1 mg/dL (0-0.2); Bilirubin Total 0.4 mg/dL (0.2-1.0); Glucose Level 128 mg/dL (74-106); NT PRO-BNP 64 pg/mL (<125); Potassium 4.2 mmol/L (3.5-5.1); Protein, Total 7.7 g/dL (6.4-8.2); Sodium Level 143 mmol/L (136-145); Troponin (Emerg Dept Use Only) < 0.02 ng/mL (0.0-0.045)
[2020-02-23 18:37] LABS: Magnesium 1.3 mg/dL (1.8-2.4)
--- NOTE | 2020-02-23 18:38 | RAD REPORT ---
EXAM DESCRIPTION: RAD - Chest Single View - 02/23/2020 5:47 pm CLINICAL HISTORY: CHEST PAIN Chest pain. COMPARISON: Chest Single View dated 04/19/2018; Chest Single View dated 09/03/2015; ABDOMEN ACUTE SERIE S dated 11/21/2013; CHEST SINGLE VIEW dated 01/19/2013 FINDINGS: Portable technique limits examination quality. The lungs are grossly clear. The heart is normal in size. No displaced fractures.Dual lead pacer august ce is present. IMPRESSION: No acute intrathoracic process suspected.
[2020-02-23 18:55] LABS: Blood Morphology Comment NOT SEEN (NOT SEEN); Platelet Estimate ADEQ; White Blood Cell Scan OK (OK)
[2020-02-23] MEDS ORDERED: MAGNESIUM SULFATE 1 gm IVPB 1 GM/100 ML BAG IV ONE (19:22)
--- NOTE | 2020-02-23 19:37 | EDPHYS ---
Physician Documentation [facility] Name: Lala Barrett Age: 69 yrs Sex: Female : 1950 Arrival Date: 02/23/2020 Time: 14:41 Bed 7 Private MD: ED Physician Junior Chairez HPI: 02/22 17:04 This 69 yrs old Female presents to ER via Ambulatory with complaints of jmm Headache, Acid Reflex. 17:04 The patient complains of pain to the forehead and left catholic. Onset: The jmm symptoms/episode began/occurred acutely, 1 week(s) ago. This is a 69 year old female with a history of DM, HLP, HTN that presents to the ED with complaints of left sided headache, left sided rib pain after a fall which occurred approx 1 week ago. Patient states she tripped on a stool and landed on her left side. Patient also states that since then has had increased acid reflux which she states she feeling mainly in her throat. Denies chest pain, denies shortness of breath. Historical: - Allergies: 15:25 No Known Allergies; hb - PMHx: 15:25 Diabetes - NIDDM; Hyperlipidemia; Headaches; Hypertension; Pacemaker; stroke; TIA; hb - PSHx: 15:25 Appendectomy; Hysterectomy; "right arm surgery"; Carpal Tunnel Repair; pacemaker; hb Cholecystectomy; cataracts; - Immunization history:: Adult Immunizations up to date. - Social history:: Smoking status: Patient denies any tobacco usage or history of. ROS: 17:04 Constitutional: Negative for fever, chills, and weight loss, Cardiovascular: Negative jmm for chest pain, palpitations, and edema, Respiratory: Negative for shortness of breath, cough, wheezing, and pleuritic chest pain, Abdomen/GI: Negative for abdominal pain, nausea, vomiting, diarrhea, and constipation. 17:04 Neuro: Positive for headache. 17:04 All other systems are negative. Exam: 17:04 Constitutional: This is a well developed, well nourished patient who is awake, alert, jmm and in no acute distress. Head/Face: atraumatic. Eyes: EOMI, no conjunctival erythema appreciated ENT: Moist Mucus Membranes Neck: Trachea midline, Supple Chest/axilla: Normal chest wall appearance and motion. Cardiovascular: Regular rate and rhythm. No edema appreciated Respiratory: Normal respirations, no respiratory distress appreciated Abdomen/GI: Non distended, soft Back: Normal ROM Skin: General appearance color normal MS/ Extremity: Moves all extremities, no obvious deformities appreciated, no edema noted to the lower extremities Neuro: Awake and alert, normal gait Psych: Behavior is normal, Mood is normal, Patient is cooperative and pleasant Vital Signs: 15:22 BP 154 / 88; Pulse 102; Resp 16; Temp 97.2(TE); Pulse Ox 100% on R/A; Pain 8/10; hb 20:25 BP 140 / 72; Pulse 103; Resp 17; Pulse Ox 99% ; ll1 MDM: 16:53 Patient medically screened. roberta 19:29 Data reviewed: vital signs, nurses notes. Counseling: I had a detailed discussion with monique the patient and/or guardian regarding: the historical points, exam findings, and any diagnostic results supporting the discharge/admit diagnosis, radiology results, the need for outpatient follow up, to return to the emergency department if symptoms worsen or persist or if there are any questions or concerns that arise at home. ED course: Patient is alert and non toxic in appearance in the ED. Patient is advised to follow up with pcp and otherwise given strict return precautions. Patient understood and agrees with the plan of care. . 11 16:55 Order name: Basic Metabolic Panel [facility] 02/22 16:55 Order name: CBC with Diff; Complete Time: 19:05 [facility] 02/22 16:55 Order name: LFT's; Complete Time: 18:37 [facility] 02/22 16:55 Order name: Magnesium; Complete Time: 18:37 [facility] 02/22 16:55 Order name: NT PRO-BNP; Complete Time: 18:37 [facility] 02/22 16:55 Order name: PT-INR; Complete Time: 18:40 [facility] 02/22 16:55 Order name: Troponin (emerg Dept Use Only); Complete Time: 18:37 [facility] 02/22 16:55 Order name: XRAY Chest (1 view); Complete Time: 18:40 [facility] 02/22 16:56 Order name: Basic Metabolic Panel; Complete Time: 18:37 [facility] 02/22 17:04 Order name: Head C Spine Mpr Wo Con; Complete Time: 17:30 [facility] 02/22 18:55 Order name: CBC Smear Scan; Complete Time: 19:05 [facility] 02/22 16:55 Order name: EKG; Complete Time: 16:56 [facility] 02/22 16:55 Order name: Cardiac monitoring; Complete Time: 18:07 [facility] 02/22 16:55 Order name: EKG - Nurse/Tech; Complete Time: 18:07 [facility] 02/22 16:55 Order name: IV Saline Lock; Complete Time: 18:07 [facility] 02/22 16:55 Order name: Labs collected and sent; Complete Time: 18:07 [facility] 02/22 16:55 Order name: O2 Per Protocol; Complete Time: 18:07 [facility] 02/22 16:55 Order name: O2 Sat Monitoring; Complete Time: 18:07 [facility] Administered Medications: 18:10 Drug: GI Cocktail without - (Maalox Suspension 30 ml, Lidocaine Liquid 2 % 15 em ml) Route: PO; 19:17 Follow up: Response: No adverse reaction; Marked relief of symptoms; Pain is decreased em 18:12 Drug: Pepcid 20 mg Route: IVP; Site: left antecubital; em 19:17 Follow up: Response: No adverse reaction; Marked relief of symptoms; Pain is decreased em 19:17 Drug: Magnesium Sulfate 1 grams Route: IVPB; Infused Over: 1 hrs; Site: left em antecubital; 19:54 Follow up: IV SiteChange: right wrist; IV SiteChange Reason: Infiltration rv 20:27 Follow up: Response: No adverse reaction; RASS: Alert and Calm (0); IV Status: ll1 Completed infusion; IV Intake: 50ml Disposition: 02/23 09:03 Co-signature as Attending Physician, Junior Chairez MD I agree with the assessment and roberta plan of care. Disposition: 02/23/20 19:37 Discharged to Home. Impression: Superficial injury of head, Rib Contusion. - Condition is Stable. - Discharge Instructions: Rib Contusion, Head Injury, Adult. - Prescriptions for orphenadrine citrate 100 mg Oral Tablet Sustained Release - take 1 tablet by ORAL route 2 times per day As needed; 20 tablet. - Medication Reconciliation Form, Thank You Letter, Antibiotic Education, Prescription Opioid Use form. - Follow up: Private Physician; When: 2 - 3 days; Reason: Recheck today's complaints, Continuance of care, Re-evaluation by your physician. Signatures: Dispatcher [employer] EDDE Junior Chairez MD MD cha Mickail, Joel, PA PA jmm Munoz, Edgar, RN RN Alexandra Beasley, FREDRICK RN Clarisse Milligan RN RN ll1 Luis Bolivar RN rv Corrections: (The following items were deleted from the chart) 02/22 17:04 16:56 Head Brain Wo Cont+CT.RAD.BRZ ordered. EDDE EDMS 17:04 16:56 C Spine Wo Con+CT.RAD.BRZ ordered. EDDE EDMS 20:27 19:37 02/23/2020 19:37 Discharged to Home. Impression: Superficial injury of head; Rib ll1 Contusion. Condition is Stable. Forms are Medication Reconciliation Form, Thank You Letter, Antibiotic Education, Prescription Opioid Use. Follow up: Private Physician; When: 2 - 3 days; Reason: Recheck today's complaints, Continuance of care, Re-evaluation by your physician. monique
--- NOTE | 2020-02-23 19:37 | ER ---
Nurse's Notes [facility] Name: Lala Barrett Age: 69 yrs Sex: Female : 1950 Arrival Date: 02/23/2020 Time: 14:41 Bed 7 Private MD: Diagnosis: Superficial injury of head;Rib Contusion Presentation: 02/22 15:22 Chief complaint: Low back pain, left sided headache, and severe heartburn unrelieved by hb antacids after mechanical fall from standing 1 week ago. Coronavirus screen: At this time, the client does not indicate any symptoms associated with coronavirus-19. Ebola Screen: No symptoms or risks identified at this time. Initial Sepsis Screen: Does the patient meet any 2 criteria? HR > 90 bpm. No. Patient's initial sepsis screen is negative. Does the patient have a suspected source of infection? No. Patient's initial sepsis screen is negative. Risk Assessment: Do you want to hurt yourself or someone else? Patient reports no desire to harm self or others. Onset of symptoms was February 17, 2020. 15:22 Method Of Arrival: Ambulatory 15:22 Acuity: ADOLPH 3 hb Triage Assessment: 20:25 Headache History: The patient has had previous headaches. General: Appears ll1 uncomfortable, Behavior is calm, cooperative. Pain: Pain began 2-3 days ago. Also complains of no other associated symptoms. Pain: Denies pain. Historical: - Allergies: 15:25 No Known Allergies; hb - PMHx: 15:25 Diabetes - NIDDM; Hyperlipidemia; Headaches; Hypertension; Pacemaker; stroke; TIA; hb - PSHx: 15:25 Appendectomy; Hysterectomy; "right arm surgery"; Carpal Tunnel Repair; pacemaker; hb Cholecystectomy; cataracts; - Immunization history:: Adult Immunizations up to date. - Social history:: Smoking status: Patient denies any tobacco usage or history of. Screenin:00 Abuse screen: Denies threats or abuse. Nutritional screening: No deficits noted. em Tuberculosis screening: No symptoms or risk factors identified. Fall Risk None identified. Assessment: 18:00 General: Appears in no apparent distress. comfortable, Behavior is calm, cooperative, em appropriate for age. Pain: Complains of pain in left clavicle and left mosque Pain currently is 8 out of 10 on a pain scale. Neuro: Level of Consciousness is awake, alert, obeys commands, Oriented to person, place, time, situation, Appropriate for age. Cardiovascular: Denies chest pain, nausea, shortness of breath, Capillary refill < 3 seconds Patient's skin is warm and dry. Respiratory: Airway is patent Respiratory effort is even, unlabored, Respiratory pattern is regular, symmetrical. GI: Patient currently denies nausea. Derm: Skin is intact, is healthy with good turgor, Skin is pink, warm \\T\\ dry. Musculoskeletal: Capillary refill < 3 seconds, Range of motion: intact in all extremities. 20:26 Reassessment: Patient and/or family updated on plan of care and expected duration. Pain ll1 level reassessed. Patient is alert, oriented x 3, equal unlabored respirations, skin warm/dry/pink. Vital Signs: 15:22 BP 154 / 88; Pulse 102; Resp 16; Temp 97.2(TE); Pulse Ox 100% on R/A; Pain 8/10; hb 20:25 BP 140 / 72; Pulse 103; Resp 17; Pulse Ox 99% ; ll1 ED Course: 14:41 Patient arrived in ED. mr 15:24 Triage completed. hb 15:25 Arm band placed on. hb 15:50 Clarisse Goel, FREDRICK is Primary Nurse. ll1 16:53 Hal Montez PA is PHCP. m 16:53 Junior Chairez MD is Attending Physician. m 17:15 EKG done, by ED staff, reviewed by Hal SOLO. dh3 17:20 Head C Spine Mpr Wo Con In Process Unspecified. EDMS 17:48 XRAY Chest (1 view) In Process Unspecified. EDMS 17:52 Dion Martin, FREDRICK is Primary Nurse. em 17:53 Initial lab(s) drawn, by me, sent to lab. Missed attempt(s): 20 gauge in right dh3 antecubital area. Bleeding controlled, band aid applied, catheter tip intact. 18:00 Patient has correct armband on for positive identification. Placed in gown. Bed in low em position. Call light in reach. teletypesetter monitor on. Pulse ox on. NIBP on. 18:03 Inserted saline lock: 20 gauge in left antecubital area, using aseptic technique. dh3 19:53 Inserted saline lock: 22 gauge in right wrist, using aseptic technique. rv 20:25 IV discontinued, intact, bleeding controlled, No redness/swelling at site. Pressure ll1 dressing applied. 20:25 No provider procedures requiring assistance completed. ll1 Administered Medications: 18:10 Drug: GI Cocktail without - (Maalox Suspension 30 ml, Lidocaine Liquid 2 % 15 em ml) Route: PO; 19:17 Follow up: Response: No adverse reaction; Marked relief of symptoms; Pain is decreased em 18:12 Drug: Pepcid 20 mg Route: IVP; Site: left antecubital; em 19:17 Follow up: Response: No adverse reaction; Marked relief of symptoms; Pain is decreased em 19:17 Drug: Magnesium Sulfate 1 grams Route: IVPB; Infused Over: 1 hrs; Site: left em antecubital; 19:54 Follow up: IV SiteChange: right wrist; IV SiteChange Reason: Infiltration rv 20:27 Follow up: Response: No adverse reaction; RASS: Alert and Calm (0); IV Status: ll1 Completed infusion; IV Intake: 50ml Intake: 20:27 IV: 50ml; Total: 50ml. ll1 Outcome: 19:37 Discharge ordered by . monique 20:26 Discharged to home ambulatory. ll1 20:26 Condition: stable 20:26 Discharge instructions given to patient, Instructed on discharge instructions, follow up and referral plans. medication usage, Demonstrated understanding of instructions, follow-up care, medications, Prescriptions given X 1. 20:27 Patient left the ED. 1 Signatures: Dispatcher [employer] EDMS Hal Montez PA PA jmm RiveraClaudette Dion Martin RN RN em Baxter, Heather RN FREDRICK Lesley Burris [facility] Luis Bolivar RN RN rv Lewis, Lynsay RN RN 1
[2020-02-23 20:38] VITALS: TEMP 97.2
[2020-02-23 20:41] VITALS: BP 140/72; O2SAT 99
--- NOTE | 2020-02-24 07:23 | EKG ---
Test Date: 2020-02-23 Test Time: 17:04:21 Glycerine Plant Operator: FRANKIE MEASUREMENT RESULTS: Intervals: Rate: 107 CA: 132 QRSD: 74 QT: 320 QTc: 427 [place]: P: 11 CA: 132 QRS: 5 T: 42 INTERPRETIVE STATEMENTS: Sinus tachycardia with fusion complexes Cannot rule out Anterior infarct, age undetermined Abnormal ECG Compared to ECG 04/19/2018 01:56:59 Fusion complex(es) now present Atrial-paced complex(es) or rhythm no longer present Ventricular-paced complex(es) or rhythm no longer present Myocardial infarct finding still present Electronically Signed On 02-24-20 07:23:05 DROP WIRE STRINGER by Bentley Vinson
== END 2020-02-23 20:27 | disposition home or self-care (01) ==
LOC: ER 14:37
DX: S00.90XA Unspecified superficial injury of unspecified part of head, initial encounter (principal); S20.212A Contusion of left front wall of thorax, initial encounter; W01.0XXA Fall on same level from slipping, tripping and stumbling without subsequent striking against object, initial encounter; Y93.9 Activity, unspecified; Y92.9 Unspecified place or not applicable; Z95.0 Presence of cardiac pacemaker; Z86.73 Personal history of transient ischemic attack (TIA), and cerebral infarction without residual deficits; I10 Essential (primary) hypertension; E11.9 Type 2 diabetes mellitus without complications
CPT/HCPCS: 96365; 93005; 85025; 80048; 36415; 83735; 85610; 80076; 84484; 83880; 70450; 72125; 71045; 96375; 99284; J3475

== ENCOUNTER 2020-02-26 13:32 | Observation (INO) | payer OTHER ==
--- OUTSIDE RECORDS SUMMARY | 2020-02-26 13:34 | XMS REPORT | Continuity of Care Document ---
:1950 [address] [facility] t Address [address] [place] [address] Care Team Providers Name Role Phone Visit, [...] Facility Department ID 2019-11-12 2019-11-12 Nurse Visit, [facility] [id number] 13:05:46 16:03:27 Visit Nurse Ashley [id number] Suraj [id number] Dustin [phone] [address] 2019-11-12 2019-11-12 Orders Doctor GREG [id number] 00:00:00 00:00:00 Only Unassigned, REUBEN [id number] [place] [facility] [phone] [id number] Results This patient has no known results.
--- NOTE | 2020-02-26 18:59 | RAD REPORT ---
EXAM DESCRIPTION: RAD - Chest Single View - 02/26/2020 6:41 pm CLINICAL HISTORY: COUGH COMPARISON: Portable February 23, 2020 TECHNIQUE: AP portable chest image was obtained 02/26/2020 6:41 pm . FINDINGS: Lung volumes are low. No acute lung parenchymal process seen. Interstitial pattern matches comparison. Pacemaker in place. Heart and vasculature are normal. No measurable pleural effusion and no pneumothorax. No acute bony abnormality seen. No acute aortic findings suspected. IMPRESSION: No acute cardiopulmonary process. No significant change from comparison.
[2020-02-26 19:04] LABS: Absolute Lymphocytes (CBC) 1.6 K/uL (0.7-4.9); Basophils % 0.6 % (0-1.3); Hematocrit 35.4 % (36.0-45.0); Lymphocytes % 30.2 % (15.3-44.8); MPV 9.8 fL (7.6-11.3); RBC Red Blood Cell Count 4.05 M/uL (3.86-4.86)
--- NOTE | 2020-02-26 19:04 | ER ---
Nurse's Notes [facility] Name: Lala Barrett Age: 69 yrs Sex: Female : 1950 Arrival Date: 02/26/2020 Time: 13:35 Bed 28 Private MD: Anup Edouard E Diagnosis: Extended spectrum beta lactamase (ESBL) resistance;Abdominal tenderness;Diarrhea, unspecified;Type 2 diabetes mellitus;Hypomagnesemia Presentation: 02/25 13:53 Chief complaint: Patient states: "I feel bloated and I have diarrhea on and off for aa5 like 3 or 4 days now". pt denies nausea/denies vomiting. Pt also reports discomfort voiding. Pt states she had a urine test here at the hospital last week but has not received results yet. Coronavirus screen: Client denies travel out of the [place] in the last 14 days. At this time, the client does not indicate any symptoms associated with coronavirus-19. Ebola Screen: Patient negative for fever greater than or equal to 101.5 degrees Fahrenheit, and additional compatible Ebola Virus Disease symptoms. Initial Sepsis Screen: Does the patient meet any 2 criteria? No. Patient's initial sepsis screen is negative. Does the patient have a suspected source of infection? No. Patient's initial sepsis screen is negative. Risk Assessment: Do you want to hurt yourself or someone else? Patient reports no desire to harm self or others. Onset of symptoms was February 2020. 13:53 Method Of Arrival: Ambulatory aa5 13:53 Acuity: ADOLPH 3 aa5 15:00 Note Pt's daughter reported that doctor called and said urine culture came back and was aa5 reported as ESBL. Historical: - Allergies: 13:55 No Known Allergies; aa5 - PMHx: 13:55 Diabetes - NIDDM; Hyperlipidemia; Pacemaker; Headaches; Hypertension; stroke; TIA; aa5 - PSHx: 13:55 Appendectomy; Hysterectomy; "right arm surgery"; Carpal Tunnel Repair; pacemaker; aa5 Cholecystectomy; cataracts; - Immunization history:: Adult Immunizations unknown. - Social history:: Smoking status: Patient denies any tobacco usage or history of. - Family history:: not pertinent. Screenin:51 Abuse screen: Denies threats or abuse. Nutritional screening: No deficits noted. ll1 Tuberculosis screening: No symptoms or risk factors identified. Fall Risk IV access (20 points). Total Han Fall Scale indicates No Risk (0-24 pts). Assessment: 18:40 General: Appears uncomfortable, Behavior is calm, cooperative, appropriate for age. : ll1 Urine is clear, Reports burning with urination, urinary frequency. 18:40 GI: Abdomen is flat, Bowel sounds present X 4 quads. Abd is soft and non tender X 4 ll1 quads. Reports bloating, diarrhea. 19:40 Reassessment: Patient and/or family updated on plan of care and expected duration. Pain ll1 level reassessed. Patient is alert, oriented x 3, equal unlabored respirations, skin warm/dry/pink. 20:40 Reassessment: Patient and/or family updated on plan of care and expected duration. Pain ll1 level reassessed. Patient is alert, oriented x 3, equal unlabored respirations, skin warm/dry/pink. 21:40 Reassessment: Patient and/or family updated on plan of care and expected duration. Pain ll1 level reassessed. Patient is alert, oriented x 3, equal unlabored respirations, skin warm/dry/pink. Pain: Denies pain. Vital Signs: 13:55 BP 141 / 67; Pulse 100; Resp 18; Temp 98.0(O); Pulse Ox 97% on R/A; Weight 65.77 kg aa5 (R); Height 5 ft. 2 in. (157.48 cm) (R); Pain 0/10; 21:39 BP 146 / 77; Pulse 88; Resp 18; Temp 98.2; Pulse Ox 98% on R/A; Pain 0/10; ll1 13:55 Body Mass Index 26.52 (65.77 kg, 157.48 cm) aa5 ED Course: 13:35 Patient arrived in ED. mr 13:35 Anup Edouard MD is Private Physician. mr 13:53 Arm band placed on. aa5 13:54 Triage completed. aa5 18:05 Junior Chairez MD is Attending Physician. [facility] 18:06 Clarisse Goel, FREDRICK is Primary Nurse. ll1 18:40 Inserted saline lock: 22 gauge in right antecubital area, using aseptic technique. ll1 Blood collected. 18:41 XRAY Chest (1 view) In Process Unspecified. EDMS 19:02 Glass, Sanket, MD is Hospitalizing Provider. roberta 19:38 CT Stone Protocol In Process Unspecified. EDMS 20:52 Patient has correct armband on for positive identification. Bed in low position. Call ll1 light in reach. Side rails up X 1. 23:05 No provider procedures requiring assistance completed. Patient admitted, IV remains in ea place. 02/26 09:09 Attending Physician role handed off by Junior Chairez MD hb 09:09 Primary Nurse role handed off by Clarisse Goel RN Administered Medications: 02/25 19:09 Drug: NS 0.9% 500 ml Route: IV; Rate: bolus; Site: right antecubital; ll1 20:12 Follow up: Response: No adverse reaction; RASS: Alert and Calm (0); IV Status: ll1 Completed infusion; IV Intake: 500ml 19:10 Drug: Meropenem 1 grams Route: IV; Rate: per protocol; Site: right antecubital; ll1 20:12 Follow up: Response: No adverse reaction; RASS: Alert and Calm (0); IV Status: ll1 Completed infusion; IV Intake: 100ml 20:12 Drug: Magnesium Sulfate 1 grams Route: IVPB; Infused Over: 1 hrs; Site: right ll1 antecubital; 21:12 Follow up: Response: No adverse reaction; RASS: Alert and Calm (0); IV Status: ll1 Completed infusion; IV Intake: 100ml 21:40 Drug: NS 0.9% 1000 ml Route: IV; Rate: 125 ml/hr; Site: right antecubital; ll1 Intake: 20:12 IV: 100ml; Total: 100ml. ll1 20:12 IV: 500ml; Total: 600ml. ll1 21:12 IV: 100ml; Total: 700ml. ll1 Outcome: 19:03 Decision to Hospitalize by Provider. roberta 23:05 Admitted to ER Hold. Please see [facility] for further documentation. ea 23:05 Condition: stable 23:05 Instructed on the need for admit, Demonstrated understanding of instructions. 02/26 09:07 Patient left the ED. dm5 09:12 Patient left the ED. hb Signatures: Dispatcher [employer] EDPR Cynthia Mendosa, RN RN dm5 Junior Chairez MD MD cha Rivera, Mary mr Calderon, Audri RN RN aa5 Alexandra George, RN RN Shruthi Mariee RN RN ea Clarisse Goel RN RN ll1 Corrections: (The following items were deleted from the chart) 02/25 20:51 18:40 General: Appears uncomfortable, Behavior is calm, cooperative, appropriate for ll1 age, ll1
--- NOTE | 2020-02-26 19:04 | EDPHYS ---
Physician Documentation [facility] Name: Lala Barrett Age: 69 yrs Sex: Female : 1950 Arrival Date: 02/26/2020 Time: 13:35 Bed 28 Private MD: Anup Edouard E ED Physician HPI: 02/25 18:55 This 69 yrs old Female presents to ER via Ambulatory with complaints of roberta Urinary Problem. 18:55 The patient presents with abdominal pain in the lower abdomen. Onset: The roberta symptoms/episode began/occurred 7 day(s) ago. The patient presents with urinary symptoms, dysuria, frequency. Onset: The symptoms/episode began/occurred 7 day(s) ago. Modifying factors: The symptoms are alleviated by nothing, the symptoms are aggravated by nothing. Associated signs and symptoms: The patient has no apparent associated signs or symptoms. Severity of symptoms: At their worst the symptoms were mild, in the emergency department the symptoms are unchanged. The patient is not sexually active. Historical: - Allergies: 13:55 No Known Allergies; aa5 - PMHx: 13:55 Diabetes - NIDDM; Hyperlipidemia; Pacemaker; Headaches; Hypertension; stroke; TIA; aa5 - PSHx: 13:55 Appendectomy; Hysterectomy; "right arm surgery"; Carpal Tunnel Repair; pacemaker; aa5 Cholecystectomy; cataracts; - Immunization history:: Adult Immunizations unknown. - Social history:: Smoking status: Patient denies any tobacco usage or history of. - Family history:: not pertinent. ROS: 18:55 Constitutional: Negative for fever, chills, and weight loss, Eyes: Negative for injury, roberta pain, redness, and discharge, ENT: Negative for injury, pain, and discharge, Neck: Negative for injury, pain, and swelling, Cardiovascular: Negative for chest pain, palpitations, and edema, Respiratory: Negative for shortness of breath, cough, wheezing, and pleuritic chest pain, Back: Negative for injury and pain, : Negative for injury, bleeding, discharge, and swelling, MS/Extremity: Negative for injury and deformity, Skin: Negative for injury, rash, and discoloration, Neuro: Negative for headache, weakness, numbness, tingling, and seizure, Psych: Negative for depression, anxiety, suicide ideation, homicidal ideation, and hallucinations, Allergy/Immunology: Negative for hives, rash, and allergies, Endocrine: Negative for neck swelling, polydipsia, polyuria, polyphagia, and marked weight changes, Hematologic/Lymphatic: Negative for swollen nodes, abnormal bleeding, and unusual bruising. 18:55 Abdomen/GI: Positive for abdominal pain, diarrhea, dysuria. Exam: 18:55 Constitutional: This is a well developed, well nourished patient who is awake, alert, roberta and in no acute distress. Head/Face: Normocephalic, atraumatic. Eyes: Pupils equal round and reactive to light, extra-ocular motions intact. Lids and lashes normal. Conjunctiva and sclera are non-icteric and not injected. Cornea within normal limits. Periorbital areas with no swelling, redness, or edema. ENT: Nares patent. No nasal discharge, no septal abnormalities noted. Tympanic membranes are normal and external auditory canals are clear. Oropharynx with no redness, swelling, or masses, exudates, or evidence of obstruction, uvula midline. Mucous membranes moist. Neck: Trachea midline, no thyromegaly or masses palpated, and no cervical lymphadenopathy. Supple, full range of motion without nuchal rigidity, or vertebral point tenderness. No Meningismus. Chest/axilla: Normal chest wall appearance and motion. Nontender with no deformity. No lesions are appreciated. Cardiovascular: Regular rate and rhythm with a normal S1 and S2. No gallops, murmurs, or rubs. Normal PMI, no JVD. No pulse deficits. Respiratory: Lungs have equal breath sounds bilaterally, clear to auscultation and percussion. No rales, rhonchi or wheezes noted. No increased work of breathing, no retractions or nasal flaring. Back: No spinal tenderness. No costovertebral tenderness. Full range of motion. Female : Normal external genitalia. Skin: Warm, dry with normal turgor. Normal color with no rashes, no lesions, and no evidence of cellulitis. 18:55 Abdomen/GI: Inspection: abdomen appears normal, Bowel sounds: normal, Palpation: abdomen is soft and non-tender, Liver: no appreciated palpable abnormalities, Hernia: not appreciated. 19:28 ECG was reviewed by the Attending Physician. [facility] Vital Signs: 13:55 BP 141 / 67; Pulse 100; Resp 18; Temp 98.0(O); Pulse Ox 97% on R/A; Weight 65.77 kg aa5 (R); Height 5 ft. 2 in. (157.48 cm) (R); Pain 0/10; 21:39 BP 146 / 77; Pulse 88; Resp 18; Temp 98.2; Pulse Ox 98% on R/A; Pain 0/10; ll1 13:55 Body Mass Index 26.52 (65.77 kg, 157.48 cm) aa5 MDM: 18:05 Patient medically screened. [facility] 19:00 Differential diagnosis: nonspecific abdominal pain, urinary tract infection, roberta appendicitis, bowel obstruction, Cholelithiasis, gastritis, non-specific abd pain, pancreatitis. Data reviewed: vital signs, nurses notes, lab test result(s), EKG, radiologic studies, plain films. Data interpreted: stationary engineer: rate is 100 beats/min, rhythm is regular, Pulse oximetry:. Counseling: I had a detailed discussion with the patient and/or guardian regarding: the historical points, exam findings, and any diagnostic results supporting the discharge/admit diagnosis, lab results, radiology results, the need for further work-up and treatment in the hospital. 02/25 18:07 Order name: Basic Metabolic Panel; Complete Time: 19:25 [facility] 02/25 18:07 Order name: CBC with Diff; Complete Time: 19:25 [facility] 02/25 18:07 Order name: LFT's; Complete Time: 19:25 [facility] 02/25 18:07 Order name: Magnesium; Complete Time: 19:25 [facility] 02/25 18:07 Order name: NT PRO-BNP; Complete Time: 19:25 [facility] 02/25 18:07 Order name: PT-INR; Complete Time: 19:25 [facility] 02/25 18:07 Order name: Troponin (emerg Dept Use Only); Complete Time: 19:25 [facility] 02/25 18:07 Order name: Stool Culture [facility] 02/25 18:07 Order name: Fecal Leukocyte Stain [facility] 02/25 18:07 Order name: CDIFF [facility] 02/25 19:00 Order name: Urine Dipstick--Ancillary (enter results) 02/26 03:57 Order name: CBC with Automated Diff [facility] 02/26 04:11 Order name: Basic Metabolic Panel [facility] 02/26 04:11 Order name: Magnesium [facility] 02/25 18:07 Order name: XRAY Chest (1 view); Complete Time: 19:09 [facility] 02/25 18:07 Order name: EKG; Complete Time: 18:07 [facility] 02/25 18:07 Order name: Cardiac monitoring; Complete Time: 19:10 [facility] 02/25 18:07 Order name: EKG - Nurse/Tech; Complete Time: 19:10 [facility] 02/25 18:07 Order name: IV Saline Lock; Complete Time: 18:46 [facility] 02/25 18:07 Order name: Labs collected and sent; Complete Time: 18:46 [facility] 02/25 18:07 Order name: O2 Per Protocol; Complete Time: 18:46 [facility] 02/25 18:07 Order name: O2 Sat Monitoring; Complete Time: 18:46 [facility] 02/25 18:53 Order name: CT Stone Protocol [facility] 02/26 05:38 Order name: Hemoglobin A1c [facility] 02/26 06:28 Order name: COVID-19 02/26 07:41 Order name: Glucose, Ancillary Testing [facility] EC:28 Rate is 87 beats/min. Rhythm is regular. QRS Nolan is Normal. [place] interval is normal. QRS roberta interval is normal. QT interval is normal. No Q waves. T waves are Normal. No ST changes noted. Clinical impression: NSR w/ Non-specific ST/T Changes and No evidence of ischemia. Interpreted by me. Reviewed by me. Administered Medications: 19:09 Drug: NS 0.9% 500 ml Route: IV; Rate: bolus; Site: right antecubital; [facility] 20:12 Follow up: Response: No adverse reaction; RASS: Alert and Calm (0); IV Status: ll1 Completed infusion; IV Intake: 500ml 19:10 Drug: Meropenem 1 grams Route: IV; Rate: per protocol; Site: right antecubital; [facility] 20:12 Follow up: Response: No adverse reaction; RASS: Alert and Calm (0); IV Status: ll1 Completed infusion; IV Intake: 100ml 20:12 Drug: Magnesium Sulfate 1 grams Route: IVPB; Infused Over: 1 hrs; Site: right [facility] antecubital; 21:12 Follow up: Response: No adverse reaction; RASS: Alert and Calm (0); IV Status: ll1 Completed infusion; IV Intake: 100ml 21:40 Drug: NS 0.9% 1000 ml Route: IV; Rate: 125 ml/hr; Site: right antecubital; ll1 Disposition: 02/26/20 19:03 Hospitalization ordered by Sanket Glass for Inpatient Admission. Preliminary diagnosis are Extended spectrum beta lactamase (ESBL) resistance, Abdominal tenderness, Diarrhea, unspecified, Type 2 diabetes mellitus, Hypomagnesemia. - Bed requested for Telemetry/MedSurg (Inpatient). - Status is Inpatient Admission. hb - Condition is Stable. - Problem is new. - Symptoms have improved. Signatures: Dispatcher [employer] EDMS SherryCandida cedillo Cynthia Benavides RN RN dm5 Junior Chairez MD MD cha Calderon, Audri RN RN aa5 Clayton Solano, TIMBER HAND-C TIMBER HAND-Cla1 Lurdes Dougherty RN RN tl1 Alexandra George RN RN Clarisse Goel RN RN ll1 Corrections: (The following items were deleted from the chart) 19:28 19:03 Hospitalization Ordered by Sanket Glass MD for Inpatient Admission. Preliminary [facility] diagnosis is Extended spectrum beta lactamase (ESBL) resistance; Abdominal tenderness; Diarrhea, unspecified; Type 2 diabetes mellitus. Bed requested for Telemetry/MedSurg (Inpatient). Status is Inpatient Admission. Condition is Stable. Problem is new. Symptoms have improved. [facility] 20:51 19:28 02/26/2020 19:03 Hospitalization Ordered by Sanket Glass MD for Inpatient tl1 Admission. Preliminary diagnosis is Extended spectrum beta lactamase (ESBL) resistance; Abdominal tenderness; Diarrhea, unspecified; Type 2 diabetes mellitus; Hypomagnesemia. Bed requested for Telemetry/MedSurg (Inpatient). Status is Inpatient Admission. Condition is Stable. Problem is new. Symptoms have improved. [facility] 02/26 09:07 02/25 20:51 02/26/2020 19:03 Hospitalization Ordered by Sanket Glass MD for Inpatient dm5 Admission. Preliminary diagnosis is Extended spectrum beta lactamase (ESBL) resistance; Abdominal tenderness; Diarrhea, unspecified; Type 2 diabetes mellitus; Hypomagnesemia. Bed requested for [facility] ER HOLD. Status is Inpatient Admission. Condition is Stable. Problem is new. Symptoms have improved. tl1 02/26 09:10 09:07 02/26/2020 19:03 Hospitalization Ordered by Sanket Glass MD for Inpatient bd Admission. Preliminary diagnosis is Extended spectrum beta lactamase (ESBL) resistance; Abdominal tenderness; Diarrhea, unspecified; Type 2 diabetes mellitus; Hypomagnesemia. Bed requested for [facility] ER HOLD. Status is Inpatient Admission. Condition is Stable. Problem is new. Symptoms have improved. dm5 09:12 09:10 02/26/2020 19:03 Hospitalization Ordered by Sanket Glass MD for Inpatient hb Admission. Preliminary diagnosis is Extended spectrum beta lactamase (ESBL) resistance; Abdominal tenderness; Diarrhea, unspecified; Type 2 diabetes mellitus; Hypomagnesemia. Bed requested for Telemetry/MedSurg (Inpatient). Status is Inpatient Admission. Condition is Stable. Problem is new. Symptoms have improved. bd
[2020-02-26 19:22] LABS: ALT/SGPT 29 U/L (12-78); AST/SGOT 14 U/L (15-37); Albumin 3.7 g/dL (3.4-5.0); Alkaline Phosphatase 138 U/L (45-117); BUN Blood Urea Nitrogen 23 mg/dL (7-18); Bicarbonate 29 mmol/L (21-32); Bilirubin Direct < 0.1 mg/dL (0-0.2); Bilirubin Total 0.4 mg/dL (0.2-1.0); Glucose Level 97 mg/dL (74-106); Magnesium 1.7 mg/dL (1.8-2.4); NT PRO-BNP 66 pg/mL (<125); Protein, Total 7.6 g/dL (6.4-8.2); Sodium Level 141 mmol/L (136-145); Troponin (Emerg Dept Use Only) < 0.02 ng/mL (0.0-0.045)
[2020-02-26] MEDS ORDERED: NA CHLORIDE 0.9% 500 ML ONE (19:22)
[2020-02-26] MEDS ORDERED: Meropenem 1 GM/100 ML BAG ONE (19:22)
[2020-02-26] MEDS ORDERED: MAGNESIUM SULFATE 1 gm IVPB 1 GM/100 ML BAG IV ONE (20:04)
--- NOTE | 2020-02-26 20:06 | RAD REPORT ---
EXAM DESCRIPTION: CT - Stone Protocol - 02/26/2020 7:38 pm CLINICAL HISTORY: Abd pain;Pain;Flank pain COMPARISON: Abdomen Pelvis Wo Contrast dated 06/28/2018 TECHNIQUE: Axial 5 mm thick images were obtained without oral or IV contrast. The [id number] span s the entirety of the system including uppermost abdomen and lung bases. All CT scans are performed using dose optimization technique as appropriate and may include automated exposure control or mA/KV adjustment according to patient size. FINDINGS: No hydronephrosis is present and no obstructing ureteral calculi. No suspicious renal mass es. Isodense masses and pyelonephritis are not excluded on a stone protocol CT scan. No significant a drenal finding. No urinary bladder suspicious finding. No obstructing or nonobstructing calculi ident ified. Imaged portions of the liver, spleen and pancreas show no suspicious findings on non-contrast imaging . Gallbladder is absent. No biliary tree dilatation. Splenic artery aneurysm has not change from prio r imaging. No suspicious bowel findings. Patient has prominent diverticulosis in the tortuous sigmoid colon. No diverticulitis. Uterus is absent. Ovaries are absent or atrophic. No hernia, mass or bulky lymphadenopathy noted. No free air, free fluid or inflammatory stranding. No significant bony abnormality. Disc and bone degenerative changes are present. IMPRESSION: No hydronephrosis, obstructing calculus or other acute finding. Isodense masses and pyelonephritis are not excluded on stone protocol technique. Prominent diverticulosis without diverticulitis. No acute GI findings.
[2020-02-26 20:50] LABS: Urine Blood NEGATIVE (NEG); Urine Glucose NEGATIVE (NEG); Urine Protein NEGATIVE (NEG); Urine Specific Gravity 1.025 (1.005-1.030)
[2020-02-26] MEDS ORDERED: NA CHLORIDE 0.9% 1,000 ML ONE (21:47)
--- NOTE | 2020-02-26 22:47 | P.HP ---
Certification for Inpatient Patient admitted to: Inpatient With expected LOS: >2 Midnights Patient will require the following post-hospital care: None Practitioner: I am a practitioner with admitting privileges, knowledge of patient current condition, hospital course, and medical plan of care. Services: Services provided to patient in accordance with Admission requirements found in Title 42 Section 412.3 of the Code of Federal Regulations <RussClayton - Last Filed: 02/26/20 22:48> Patient History Date of Service: 02/26/20 Primary Care Provider: Dr. Edouard Reason for admission: UTI-ESBL History of Present Illness: 69-year-old female with history of diabetes mellitus type 2, hypertension, CVA presents emergency department for dysuria and diarrhea for the last 2-3 days. Patient reports that she had urine culture obtained approximately 3 days ago and today that she was called and informed that her urine culture grew out a very resistant form of bacteria. After reviewing patient's urine cultures she was positive for E. coli-ESBL. Patient was worked up in the emergency department , labs remarkable for mild hypomagnesemia with magnesium 1.7. Patient denies any pain or additional symptoms from the dysuria and diarrhea. No recent antibiotic use. ED provider wishes to admit patient for further evaluation and management. When I saw the patient in the emergency department she is awake, alert, oriented x3. Patient does not appear septic at this time. Patient be admitted for fu rther evaluation and management. - Past Medical/Surgical History Diabetic: Yes -: hyperlipidemia -: hypertention -: NIIDM since age 39 -: Mild stroke 01/27 -: Staph Left arm 2010 -: TIA 08/2015 -: "tissue that was damaged in heart" -: alfredo -: appendectomy -: hysterectomy -: tubal ligation -: antonio cataract sx - Family History Mother -: Diabetes Father -: Diabetes, Stroke - Social History Alcohol use: No CD- Drugs: No Caffeine use: Yes Place of Residence: Home <Clayton Solano - Last Filed: 02/26/20 22:48> Date of Service: 03/03/20 <Sanket Glass - Last Filed: 03/03/20 14:28> Allergies No Known Allergies Allergy (Verified 09/15/17 09:38) Home Medications: Atorvastatin Calcium [Lipitor*] 20 mg PO DAILY 08/26/13 Losartan Potassium [Cozaar*] 1 tab PO DAILY 08/26/13 Metformin HCl [Glucophage] 1,000 mg PO BIDWM 09/03/15 Clopidogrel Bisulfate [Plavix*] 75 mg PO DAILY #30 tablet 09/04/15 Glipizide [Glipizide ER] 10 mg PO BID 02/23/16 Ascorbic Acid [Vitamin C] 250 mg PO DAILY 09/15/17 Aspirin [Adult Aspirin Regimen] 81 mg PO DAILY 09/15/17 Latanoprost [Xalatan] 1 drop OP BEDTIME 09/15/17 Pregabalin [Lyrica*] 75 mg PO BID 09/15/17 Cholecalciferol (Vitamin D3) [Vitamin D3] 1 tab PO DAILY 02/27/20 Cyanocobalamin (Vitamin B-12) [Vitamin B-12] 1 tab PO DAILY 02/27/20 Dexlansoprazole [Dexilant] 1 tab PO DAILY 02/27/20 PARoxetine HCL [Paroxetine HCl] 1 tab PO DAILY 02/27/20 hydroCHLOROthiazide [Hydrochlorothiazide*] 1 tab PO DAILY 02/27/20 Review of Systems 10-point ROS is otherwise unremarkable Gastrointestinal: Diarrhea Genitourinary: Dysuria, Frequency <Clayton Solano - Last Filed: 02/26/20 22:48> Physical Examination - Physical Exam General: Alert, In no apparent distress HEENT: Atraumatic, PERRLA, Mucous membr. moist/pink Neck: Supple, 2+ carotid pulse no bruit, No LAD Respiratory: Clear to auscultation bilaterally, Normal air movement Cardiovascular: Regular rate/rhythm, Normal S1 S2 Gastrointestinal: Normal bowel sounds, No tenderness Musculoskeletal: No tenderness Integumentary: No rashes Neurological: Normal speech, Normal strength at 5/5 x4 extr, Normal tone, Normal affect - Studies Laboratory Data (last 24 hrs) 02/26/20 18:40: PT 11.8, INR 1.00 02/26/20 18:40: WBC 5.3 D, Hgb 12.2, Hct 35.4 L, Plt Count 180 02/26/20 18:40: Sodium 141, Potassium 4.0, BUN 23 H, Creatinine 0.63, Glucose 97, Magnesium 1.7 L, Total Bilirubin 0.4, AST 14 L, ALT 29, Alkaline Phosphatase 138 H <Clayton Solano - Last Filed: 02/26/20 22:48> Assessment and Plan - Plan Assessment UTI E. coli- ESBL Diabetes mellitus type 2 Hypertension History of CVA Plan UTI E. coli- ESBL- continue with meropenem, PICC line in social work nurse consult ordered for home health with IV antibiotics. Blood cultures obtained. DVT prophylaxis Lovenox 40 mg subcutaneous once daily. Diabetes mellitus type 2- a.c. HS Accu-Cheks, sliding scale insulin therapy. A1c with morning labs. Hypertension- obtain and continue home medications. History of CVA- obtain and continue home medications. Discharge Plan: Home Plan to discharge in: 48 Hours - Advance Directives Does patient have a Living Will: No Does patient have a Durable POA for Healthcare: No - Code Status/Comfort Care Code Status Assessed: Yes (full code) Critical Care: No Time Spent Managing Pts Care (In Minutes): 55 <Clayton Solano - Last Filed: 02/26/20 22:48> - Plan Plan of care reviewed with Clayton Solano. Agree with plan as noted above. <Sanket Glass - Last Filed: 03/03/20 14:28>
[2020-02-26] MEDS ORDERED: HYDROCODONE/APAP 5/325 MG TAB PO PRN (23:09)
[2020-02-26] MEDS ORDERED: ONDANSETRON 4 MG/2 ML VIAL IV PRN (23:09)
[2020-02-26] MEDS ORDERED: ACETAMINOPHEN 500 MG TAB PO PRN (23:09)
[2020-02-26] MEDS: NA CHLORIDE 0.9% 1,000 ML IV SCH (23:09)
[2020-02-26] MEDS: INSULIN -REGULAR HUMAN 50 UNIT/0.5 ML ML SQ SCH (23:09)
[2020-02-27 01:47] VITALS: BMI 26.5
[2020-02-27] MEDS ORDERED: Meropenem 1000 MG/VIAL IV SCH (02:00)
[2020-02-27 03:56] LABS: Absolute Lymphocytes (CBC) 1.7 K/uL (0.7-4.9); Hematocrit 32.1 % (36.0-45.0); Lymphocytes % 35.5 % (15.3-44.8); MPV 9.7 fL (7.6-11.3); RBC Red Blood Cell Count 3.73 M/uL (3.86-4.86)
[2020-02-27 04:10] LABS: BUN Blood Urea Nitrogen 17 mg/dL (7-18); Bicarbonate 29 mmol/L (21-32); Glucose Level 84 mg/dL (74-106); Magnesium 1.8 mg/dL (1.8-2.4); Sodium Level 144 mmol/L (136-145)
[2020-02-27] MEDS ORDERED: MEROPENEM ONE (04:22)
[2020-02-27] MEDS ORDERED: MAGNESIUM SULFATE 1 gm IVPB 1 GM/100 ML BAG IV ONE ×2 (05:53→06:00)
[2020-02-27] MEDS: INSULIN -REGULAR HUMAN 50 UNIT/0.5 ML ML SQ SCH ×4 (07:30→22:12)
[2020-02-27] MEDS ORDERED: Meropenem 1 GM/100 ML BAG IV SCH (09:00)
[2020-02-27] MEDS ORDERED: ENOXAPARIN 40 MG/0.4 ML SQ ONE (09:08)
[2020-02-27] MEDS ORDERED: INSULIN -REGULAR HUMAN 50 UNIT/0.5 ML ML ONE (09:09)
[2020-02-27] MEDS: ENOXAPARIN 40 MG/0.4 ML SQ SCH (10:00)
[2020-02-27] MEDS: NA CHLORIDE 0.9% 1,000 ML IV SCH ×2 (10:23→19:09)
[2020-02-27] MEDS: Meropenem 1 GM/100 ML BAG IV SCH (17:00)
--- NOTE | 2020-02-27 19:21 | P.PN ---
Subjective Date of Service: 02/27/20 Primary Care Provider: Dr. Edouard Chief Complaint: UTI-ESBL Subjective: Improving (Feeling better, denies dysuria, no diarrhea, tolerating diet) Review of Systems 10-point ROS is otherwise unremarkable Physical Examination - Vital Signs Temperature: 97 F Blood Pressure: 122/57 Pulse: 88 Respirations: 18 Pulse Ox (%): 97 - Physical Exam General: Alert, In no apparent distress HEENT: Sclerae nonicteric Respiratory: Clear to auscultation bilaterally, Normal air movement Cardiovascular: No edema, Regular rate/rhythm Gastrointestinal: Soft and benign, No tenderness Integumentary: No rashes Neurological: Normal speech, Normal affect - Studies Laboratory Data (last 24 hrs) 02/26/20 18:40: Sodium 141, Potassium 4.0, BUN 23 H, Creatinine 0.63, Glucose 97, Magnesium 1.7 L, Total Bilirubin 0.4, AST 14 L, ALT 29, Alkaline Phosphatase 138 H Assessment & Plan Physician Review Additional Text: UTI E. coli- ESBL Diabetes mellitus type 2 Hypertension History of CVA Plan UTI E. coli- ESBL- Continue meropenem, 1 g q.8h, will need 7 days PICC line ordered [employer] consult for home health and IV antibiotics Diabetes mellitus type 2- a.c. HS Accu-Cheks, sliding scale insulin therapy. A1c with morning labs. Hypertension- continue home medications. History of CVA- continue home medications. Dispo: Anticipate discharge home once PICC line and home health set up Time Spent Managing Pts Care (In Minutes): 35
[2020-02-28] MEDS: Meropenem 1 GM/100 ML BAG IV SCH ×2 (00:24→08:00)
[2020-02-28 05:00] LABS: Absolute Lymphocytes (CBC) 1.5 K/uL (0.7-4.9); Basophils % 0.7 % (0-1.3); Hematocrit 33.2 % (36.0-45.0); Lymphocytes % 34.3 % (15.3-44.8); MPV 9.8 fL (7.6-11.3); RBC Red Blood Cell Count 3.81 M/uL (3.86-4.86)
[2020-02-28 05:10] LABS: BUN Blood Urea Nitrogen 11 mg/dL (7-18); Bicarbonate 30 mmol/L (21-32); Glucose Level 136 mg/dL (74-106); Potassium 4.5 mmol/L (3.5-5.1); Sodium Level 144 mmol/L (136-145)
[2020-02-28] MEDS: NA CHLORIDE 0.9% 1,000 ML IV SCH (05:15)
[2020-02-28] MEDS: INSULIN -REGULAR HUMAN 50 UNIT/0.5 ML ML SQ SCH ×2 (08:00→11:30)
[2020-02-28 08:07] VITALS: O2SAT 97
[2020-02-28] MEDS: ENOXAPARIN 40 MG/0.4 ML SQ SCH (08:39)
--- NOTE | 2020-02-28 11:12 | RAD REPORT ---
EXAM DESCRIPTION: RAD - Chest Single View - 02/28/2020 4:08 am CLINICAL HISTORY: 69 years Female, picc line placement COMPARISON: None. TECHNIQUE: Single portable x-ray view of the chest performed on 02/28/2020 at 4:00 AM FINDINGS: Lung volumes are low. The lungs are grossly clear. The lateral costophrenic sulci are jaz r. No airspace process is identified. There is no evidence of a pneumothorax. The cardiac silhouette is normal in size and configuration. The mediastinal contours are normal. No acute osseous abnormality is identified. No focal soft tissue abnormalities are seen. Lines and tubes: The right upper extremity PICC line catheter tip overlies the region of the superi or vena cava. A left subclavian bipolar pacemaker is present. There are multiple overlying cardiac mo nitor leads. IMPRESSION: 1. No definite acute intrathoracic disease. 2. The tip of the right upper extremity PICC line catheter overlies the region of the superior vena c isis. 3. Left subclavian bipolar pacemaker present. Electronically signed by: Fina Barrera DO 02/28/2020 5:40 AM BLUEPRINT MAKER Due to temporary technical issues with the PACS/Fluency reporting system, reports are being signed by the in house radiologist without review as a courtesy to ensure prompt reporting. The interpreting r adiologist is fully responsible for the content of the report.
[2020-02-28 11:47] VITALS: BP 128/61; TEMP 97.5
--- NOTE | 2020-02-28 20:52 | P.DS ---
Admission Date: 02/26/20 Discharge Date: 02/28/20 Primary Care Provider: Dr. Edouard Disposition: DC HOME/HOME HEALTH CARE Discharge Condition: GOOD Reason for Admission: UTI-ESBL Procedures: CT Abd (02/25): : No hydronephrosis, obstructing calculus or other acute finding. Isodense masses and pyelonephritis are not excluded on stone protocol technique. Prominent diverticulosis without diverticulitis. No acute GI findings. PICC line placement (02/27) Problem List: ESBL e.coli cystitis Diabetes mellitus type 2 Hypertension History of CVA Brief History of Present Illness: 69yo female seen a few days ago presented to ED under direction of physician due to UA resulting positive for ESBL e.coli. Hospital Course: She did not appear septic on admission. She was treated with IV meropenem. She underwent PICC line placement and was discharged home with 7 days of IV meropenem and home health. Vital Signs/Physical Exam: Temp Pulse Resp BP Pulse Ox 97.5 F 89 16 128/61 96 02/28/20 11:46 02/28/20 11:46 02/28/20 11:46 02/28/20 11:46 02/28/20 11:46 General: Alert, In no apparent distress HEENT: Sclerae nonicteric Respiratory: Clear to auscultation bilaterally Cardiovascular: No edema, Regular rate/rhythm Gastrointestinal: Soft and benign, Non-distended, No tenderness Musculoskeletal: No tenderness Integumentary: No rashes Neurological: Normal speech, Normal affect Laboratory Data at Discharge: WBC 4.4 K/uL (4.3-10.9) 02/28/20 04:23 Hgb 11.3 g/dL (12.0-15.0) L 02/28/20 04:23 Hct 33.2 % (36.0-45.0) L 02/28/20 04:23 Plt Count 168 K/uL (152-406) 02/28/20 04:23 PT 11.8 SECONDS (9.5-12.5) 02/26/20 18:40 INR 1.00 02/26/20 18:40 Sodium 144 mmol/L (136-145) 02/28/20 04:23 Potassium 4.5 mmol/L (3.5-5.1) 02/28/20 04:23 BUN 11 mg/dL (7-18) 02/28/20 04:23 Creatinine 0.56 mg/dL (0.55-1.3) 02/28/20 04:23 Glucose 136 mg/dL (74-106) H 02/28/20 04:23 Magnesium 2.0 mg/dL (1.8-2.4) 02/28/20 04:23 Total Bilirubin 0.4 mg/dL (0.2-1.0) 02/26/20 18:40 AST 14 U/L (15-37) L 02/26/20 18:40 ALT 29 U/L (12-78) 02/26/20 18:40 Alkaline Phosphatase 138 U/L (45-117) H 02/26/20 18:40 Home Medications: Atorvastatin Calcium [Lipitor*] 20 mg PO DAILY 08/26/13 Losartan Potassium [Cozaar*] 1 tab PO DAILY 08/26/13 Metformin HCl [Glucophage] 1,000 mg PO BIDWM 09/03/15 Clopidogrel Bisulfate [Plavix*] 75 mg PO DAILY #30 tablet 09/04/15 Glipizide [Glipizide ER] 10 mg PO BID 02/23/16 Ascorbic Acid [Vitamin C] 250 mg PO DAILY 09/15/17 Aspirin [Adult Aspirin Regimen] 81 mg PO DAILY 09/15/17 Latanoprost [Xalatan] 1 drop OP BEDTIME 09/15/17 Pregabalin [Lyrica*] 75 mg PO BID 09/15/17 Cholecalciferol (Vitamin D3) [Vitamin D3] 1 tab PO DAILY 02/27/20 Cyanocobalamin (Vitamin B-12) [Vitamin B-12] 1 tab PO DAILY 02/27/20 Dexlansoprazole [Dexilant] 1 tab PO DAILY 02/27/20 PARoxetine HCL [Paroxetine HCl] 1 tab PO DAILY 02/27/20 hydroCHLOROthiazide [Hydrochlorothiazide*] 1 tab PO DAILY 02/27/20 Patient Discharge Instructions: follow up with PCP within 1 week. continue IV antibiotics for 1 week, home health nursing ordered to assist Diet: ADA Activity: Ad karlo Followup: Anup Edouard MD [Primary Care Provider] - Time spent managing pt's care (in minutes): 35
--- NOTE | 2020-03-01 07:53 | EKG ---
Test Date: 2020-02-26 Test Time: 19:17:40 [employer]illing [employer] Operator: MARCELLA MEASUREMENT RESULTS: Intervals: Rate: 87 TN: 156 QRSD: 66 QT: 346 QTc: 416 [place]: P: 26 TN: 156 QRS: 11 T: 39 INTERPRETIVE STATEMENTS: Sinus rhythm with premature atrial complexes with aberrant conduction Otherwise normal ECG Compared to ECG 02/23/2020 17:04:21 Atrial premature complex(es) now present Aberrant conduction of supraventricular beat(s) now present Sinus tachycardia no longer present Fusion complex(es) no longer present Myocardial infarct finding no longer present Electronically Signed On 03-01-20 07:42:35 [employer]GER [employer] by Bentley Vinson
== END 2020-02-28 13:21 | disposition home health service (06) ==
LOC: ER 13:32 → ERHOLD 19:55 → INTOOBSV 19:55 → 4TH 02-27 09:42
PROVIDERS: ADMIT Hospitalist; ATTEND Hospitalist
DX: N30.90 Cystitis, unspecified without hematuria (principal); B96.29 Other Escherichia coli [E. coli] as the cause of diseases classified elsewhere; E11.9 Type 2 diabetes mellitus without complications; I10 Essential (primary) hypertension; Z79.84 Long term (current) use of oral hypoglycemic drugs; Z79.82 Long term (current) use of aspirin; Z20.828 Contact with and (suspected) exposure to other viral communicable diseases; Z86.73 Personal history of transient ischemic attack (TIA), and cerebral infarction without residual deficits; E78.5 Hyperlipidemia, unspecified
CPT/HCPCS: 96365; 96367; 93005; 36569; 87040 ×2; 85025 ×3; 80048 ×3; 36415 ×2; 83735 ×3; 85610; 82947 ×6; 80076; 81003; 83036; 84484; 83880; 76377; 74176; 71045 ×2; 99285; U0002; J1650 ×2; J3475 ×2; J2185 ×4; J7040; J7030 ×3

== ENCOUNTER 2022-07-03 08:34 | Emergency (ER) | payer OTHER ==
--- OUTSIDE RECORDS SUMMARY | 2022-07-03 08:38 | XMS REPORT | Continuity of Care Document ---
:1950 Author Organization [facility] t Address [address] [place] [place] [address] Care Team Providers Name Role Phone ONOFRE EDOUARD Primary Care Physician Unavailable Onofre Edouard Attending Clinician Unavailable BETH PONCE Attending Clinician Unavailable DOTTIE MALLORY Attending Clinician Unavailable Pob, [facility] Main Attending Clinician Unavailable Beth Ponce MD Attending Clinician Doctor Unassigned, [place] Attending Clinician Unavailable Dottie Mallory MD Attending Clinician SHELBY GORMAN Attending Clinician Unavailable Wes Mccarthy DO Attending Clinician Hany Parra MD Attending Clinician [phone] Chelsie, Remote Device Check At Home - Attending Clinician Unava ilable HANY PARRA Attending Clinician Unavailable Visit, Adc Nurse Attending Clinician Unavailable Shelby Gorman MD Attending Clinician DOTTIE MALLORY Admitting Clinician Unavailable Payers Payer Name Policy Type Policy Number Effective Date Expiration Date Ary GARZA [id number] 2020 HEALTHCARE 00:00:00 HEALTH [employer] PPO [facility] Dual 53 [id number] Common Complete [facility] - [facility] [place] HUMANA CHOICE [id number] 2014 00:00:00 Problems Condition Condition Condition Status Onset Resolution Last Treating Co mments Source Name Details Category Date Date Treatment Clinician Date Sinus Sinus Disease Active Univers pause pause 3-15 ity of 00:00: [place] [address] Medical Branch Essential Essential Disease Active Uni vers hypertensi hypertensi 3-10 it y of on on 00:00: [place] [address] Medical [place] History of History of Disease Active U nivers transient transient 3-10 ity of ischemic ischemic 00:00: [place] attack attack 00 Medical (TIA) (TIA) Branch S/P S/P Disease Active Univers placement placement 6-28 [place] cardiac [place] pac[place] [facility] [id number] 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 [place] [id number] 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 [facility] Allergies, Adverse Reactions, Alerts Allergy Allergy Status Severity Reaction(s) Onset Inactive Treating Comm ents Source Name Type Date Date Clinician NO KNOWN Drug Active Univers ALLERGIE Class ity of S [facility] Social History Social Habit Start Date Stop Date Quantity Comments Source History of [facility] - Tobacco Use [facility] Sex Assigned At [facility] nathaniel - [facility] Exposure to 2022-06-21 2022-07-01 Not sure [facility] SARS-CoV-2 00:00:00 11:28:00 [place] [facility] (event) [place] Alcohol intake 2021-06-29 2021-06-29 Current University of 00:00:00 00:00:00 non-drinker of [facility] alcohol (finding) [place] Tobacco use and 2016-08-03 2016-08-03 Smokeless tobacco Un iversity of exposure 00:00:00 00:00:00 non-user [facility] Smoking Status Start Date Stop Date Source Never Smoker [facility] Medications Ordered Filled Start Stop Current Ordering Indication Dosage Frequency Signature Comments Components Source Medication Medication Date Date Medication? Clinician (SIG) Name Name clopidogrel Yes 75mg Take 75 mg Univers 75 mg 3-10 by mouth ity of tablet 10:57: daily. [place] [address] Medical Branch Dexlansopra Yes Take by Uni vers zole 3-10 mouth ity of (DEXILANT) 10:57: daily. [place] 60 mg 18 Medical capsule Branch clopidogrel 0 Yes 75mg Take 75 mg Univers 75 mg 3-10 by mouth ity of tablet 10:57: daily. [place] [address] Medical Branch Dexlansopra Yes Take by Uni vers zole 3-10 mouth ity of (DEXILANT) 10:57: daily. [place] 60 mg 18 Medical capsule Branch clopidogrel 0 Yes 75mg Take 75 mg Univers 75 mg 3-10 by mouth ity of tablet 10:57: daily. [place] [address] Medical Branch Dexlansopra Yes Take by Uni vers zole 3-10 mouth ity of (DEXILANT) 10:57: daily. [place] 60 mg 18 Medical capsule Branch clopidogrel 0 Yes 75mg Take 75 mg Univers 75 mg 3-10 by mouth ity of tablet 10:57: daily. [place] [address] Medical Branch Dexlansopra Yes Take by Uni vers zole 3-10 mouth ity of (DEXILANT) 10:57: daily. [place] 60 mg 18 Medical capsule Branch clopidogrel 0 Yes 75mg Take 75 mg Univers 75 mg 3-10 by mouth ity of tablet 10:57: daily. [place] [address] Medical Branch Dexlansopra Yes Take by Uni vers zole 3-10 mouth ity of (DEXILANT) 10:57: daily. [place] 60 mg 18 Medical capsule Branch clopidogrel 0 Yes 75mg Take 75 mg Univers 75 mg 3-10 by mouth ity of tablet 10:57: daily. [place] [address] Medical Branch Dexlansopra 0 Yes Take by Uni vers zole 3-10 mouth ity of (DEXILANT) 10:57: daily. [place] 60 mg 18 Medical capsule Branch clopidogrel 2020-0 Yes 75mg Take 75 mg Univers 75 mg 3-10 by mouth ity of tablet 10:57: daily. [place] 18 Medical Branch Dexlansopra 0 Yes Take by Uni vers zole 3-10 mouth ity of (DEXILANT) 10:57: daily. [place] 60 mg 18 Medical capsule Branch clopidogrel 0 Yes 75mg Take 75 mg Univers 75 mg 3-10 by mouth ity of tablet 10:57: daily. [place] 18 Medical Branch Dexlansopra 0 Yes Take by Uni vers zole 3-10 mouth ity of (DEXILANT) 10:57: daily. [place] 60 mg 18 Medical capsule Branch clopidogrel 0 Yes 75mg Take 75 mg Univers 75 mg 3-10 by mouth ity of tablet 10:57: daily. [place] [address] Medical Branch Dexlansopra 0 Yes Take by Uni vers zole 3-10 mouth ity of (DEXILANT) 10:57: daily. [place] 60 mg 18 Medical capsule Branch hydroCHLORO 0 Yes 12.5mg Take 12.5 Univers thiazide 3-10 mg by ity of 12.5 mg 10:56: mouth [place] capsule 27 daily. Medical Branch hydroCHLORO 0 Yes 12.5mg Take 12.5 Univers thiazide 3-10 mg by ity of 12.5 mg 10:56: mouth [place] capsule 27 daily. Medical Branch hydroCHLORO 0 Yes 12.5mg Take 12.5 Univers thiazide 3-10 mg by ity of 12.5 mg 10:56: mouth [place] capsule 27 daily. Medical Branch hydroCHLORO 0 Yes 12.5mg Take 12.5 Univers thiazide 3-10 mg by ity of 12.5 mg 10:56: mouth [place] capsule 27 daily. Medical Branch hydroCHLORO 0 Yes 12.5mg Take 12.5 Univers thiazide 3-10 mg by ity of 12.5 mg 10:56: mouth [place] capsule 27 daily. Medical Branch hydroCHLORO 0 Yes 12.5mg Take 12.5 Univers thiazide 3-10 mg by ity of 12.5 mg 10:56: mouth [place] capsule 27 daily. Medical Branch hydroCHLORO 0 Yes 12.5mg Take 12.5 Univers thiazide 3-10 mg by ity of 12.5 mg 10:56: mouth [place] capsule 27 daily. Medical Branch hydroCHLORO 0 Yes 12.5mg Take 12.5 Univers thiazide 3-10 mg by ity of 12.5 mg 10:56: mouth [place] capsule 27 daily. Medical Branch hydroCHLORO 2020-0 Yes 12.5mg Take 12.5 Univers thiazide 3-10 mg by ity of 12.5 mg 10:56: mouth [place] capsule 27 daily. Medical Branch metFORMIN 2020-0 Yes 1000mg Take 1,000 Univers 1,000 mg 3-10 mg by ity of tablet 10:54: mouth 2 [place] [address] (two) Medical times [place] daily with meals. glipiZIDE 2020-0 Yes 10mg Take 10 mg Un carmelita 10 mg 3-10 by mouth ity of tablet 10:54: daily. [address] Branch pregabalin 2020-0 Yes 75mg Take 75 mg U nivers (LYRICA) 75 3-10 by mouth 2 it y of mg capsule 10:54: (two) [address] daily. Branch metFORMIN 0 Yes 1000mg Take 1,000 Univers 1,000 mg 3-10 mg by ity of tablet 10:54: mouth 2 [place] [address] (two) Medical [facility] daily with meals. glipiZIDE 0 Yes 10mg Take 10 mg Un carmelita 10 mg 3-10 by mouth ity of tablet 10:54: daily. [address] Branch pregabalin 0 Yes 75mg Take 75 mg U nivers (LYRICA) 75 3-10 by mouth 2 it y of mg capsule 10:54: (two) [place] [address] times [facility] daily. Branch metFORMIN 0 Yes 1000mg Take 1,000 Univers 1,000 mg 3-10 mg by ity of tablet 10:54: mouth 2 [place] [address] (two) Medical [facility] daily with meals. glipiZIDE 2020-0 Yes 10mg Take 10 mg Un carmelita 10 mg 3-10 by mouth ity of tablet 10:54: daily. [address] Branch pregabalin 2020-0 Yes 75mg Take 75 mg U nivers (LYRICA) 75 3-10 by mouth 2 it y of mg capsule 10:54: (two) [place] [address] times [facility] daily. Branch metFORMIN 2020-0 Yes 1000mg Take 1,000 Univers 1,000 mg 3-10 mg by ity of tablet 10:54: mouth 2 [place] [address] (two) Medical times [place] daily with meals. glipiZIDE 2021-0 Yes 10mg Take 10 mg Un carmelita 10 mg 3-10 by mouth ity of tablet 10:54: daily. [address] Branch pregabalin 2020-0 Yes 75mg Take 75 mg U nivers (LYRICA) 75 3-10 by mouth 2 it y of mg capsule 10:54: (two) [place] [address] times [facility] daily. Branch metFORMIN 2020-0 Yes 1000mg Take 1,000 Univers 1,000 mg 3-10 mg by ity of tablet 10:54: mouth 2 [place] [address] (two) Medical times [place] daily with meals. glipiZIDE 1-0 Yes 10mg Take 10 mg Un carmelita 10 mg 3-10 by mouth ity of tablet 10:54: daily. [address] pregabalin 2020-0 Yes 75mg Take 75 mg U nivers (LYRICA) 75 3-10 by mouth 2 it y of mg capsule 10:54: (two) [place] [address] times [facility] daily. Branch metFORMIN 2020-0 Yes 1000mg Take 1,000 Univers 1,000 mg 3-10 mg by ity of tablet 10:54: mouth 2 [place] [address] (two) [facility] daily with meals. glipiZIDE 2020-0 Yes 10mg Take 10 mg Un carmelita 10 mg 3-10 by mouth ity of tablet 10:54: daily. [address] Branch pregabalin 2020-0 Yes 75mg Take 75 mg U nivers (LYRICA) 75 3-10 by mouth 2 it y of mg capsule 10:54: (two) [address] daily. Branch metFORMIN 2020-0 Yes 1000mg Take 1,000 Univers 1,000 mg 3-10 mg by ity of tablet 10:54: mouth 2 [place] [address] (two) [facility] daily with meals. glipiZIDE 1-0 Yes 10mg Take 10 mg Un carmelita 10 mg 3-10 by mouth ity of tablet 10:54: daily. [address] pregabalin 1-0 Yes 75mg Take 75 mg U nivers (LYRICA) 75 3-10 by mouth 2 it y of mg capsule 10:54: (two) [place] [address] times [facility] daily. Branch metFORMIN 1-0 Yes 1000mg Take 1,000 Univers 1,000 mg 3-10 mg by ity of tablet 10:54: mouth 2 [place] [address] (two) Medical times Branch daily with meals. glipiZIDE 0 Yes 10mg Take 10 mg Un carmelita 10 mg 3-10 by mouth ity of tablet 10:54: daily. [place] [address] Medical Branch pregabalin 0 Yes 75mg Take 75 mg U nivers (LYRICA) 75 3-10 by mouth 2 it y of mg capsule 10:54: (two) [place] [address] times Medical daily. Branch metFORMIN 0 Yes 1000mg Take 1,000 Univers 1,000 mg 3-10 mg by ity of tablet 10:54: mouth 2 [place] [address] (two) Medical times [place] daily with meals. glipiZIDE 0 Yes 10mg Take 10 mg Un carmelita 10 mg 3-10 by mouth ity of tablet 10:54: daily. [place] [address] Medical Branch pregabalin 0 Yes 75mg Take 75 mg U nivers (LYRICA) 75 3-10 by mouth 2 it y of mg capsule 10:54: (two) [place] [address] times Medical daily. Branch atorvastati 0 Yes 20mg Take 20 mg Univers n 20 mg 3-10 by mouth ity of tablet 10:53: at [place] [address] bedtime. Medical Branch aspirin 81 0 Yes 81mg Take 81 mg U nivers mg chewable 3-10 by mouth ity of tablet 10:53: daily. [place] [address] Medical Branch CALCIUM 0 Yes 2000U Take 2,000 Uni vers CARBONATE/V 3-10 Units by ity of ITAMIN D3 10:53: mouth [place] (VITAMIN 50 daily. Medical D-3 ORAL) Branch atorvastati 0 Yes 20mg Take 20 mg Univers n 20 mg 3-10 by mouth ity of tablet 10:53: at [place] [address] bedtime. Medical Branch aspirin 81 0 Yes 81mg Take 81 mg U nivers mg chewable 3-10 by mouth ity of tablet 10:53: daily. [place] [address] Medical Branch CALCIUM 0 Yes 2000U Take 2,000 Uni vers CARBONATE/V 3-10 Units by ity of ITAMIN D3 10:53: mouth [place] (VITAMIN 50 daily. Medical D-3 ORAL) Branch atorvastati 0 Yes 20mg Take 20 mg Univers n 20 mg 3-10 by mouth ity of tablet 10:53: at [place] [address] bedtime. Medical Branch aspirin 81 Yes 81mg Take 81 mg U nivers mg chewable 3-10 by mouth ity of tablet 10:53: daily. [place] [address] Medical Branch CALCIUM 0 Yes 2000U Take 2,000 Uni vers CARBONATE/V 3-10 Units by ity of ITAMIN D3 10:53: mouth [place] (VITAMIN 50 daily. Medical D-3 ORAL) Branch atorvastati Yes 20mg Take 20 mg Univers n 20 mg 3-10 by mouth ity of tablet 10:53: at [place] [address] bedtime. Medical Branch aspirin 81 Yes 81mg Take 81 mg U nivers mg chewable 3-10 by mouth ity of tablet 10:53: daily. [place] [address] Medical Branch CALCIUM 0 Yes 2000U Take 2,000 Uni vers CARBONATE/V 3-10 Units by ity of ITAMIN D3 10:53: mouth [place] (VITAMIN 50 daily. Medical D-3 ORAL) Branch atorvastati Yes 20mg Take 20 mg Univers n 20 mg 3-10 by mouth ity of tablet 10:53: at [place] [address] bedtime. Medical Branch aspirin 81 0 Yes 81mg Take 81 mg U nivers mg chewable 3-10 by mouth ity of tablet 10:53: daily. [place] [address] Medical Branch CALCIUM 0 Yes 2000U Take 2,000 Uni vers CARBONATE/V 3-10 Units by ity of ITAMIN D3 10:53: mouth [place] (VITAMIN 50 daily. Medical D-3 ORAL) Branch atorvastati Yes 20mg Take 20 mg Univers n 20 mg 3-10 by mouth ity of tablet 10:53: at [place] [address] bedtime. Medical Branch aspirin 81 0 Yes 81mg Take 81 mg U nivers mg chewable 3-10 by mouth ity of tablet 10:53: daily. [place] [address] Medical Branch CALCIUM 0 Yes 2000U Take 2,000 Uni vers CARBONATE/V 3-10 Units by ity of ITAMIN D3 10:53: mouth [place] (VITAMIN 50 daily. Medical D-3 ORAL) Branch atorvastati Yes 20mg Take 20 mg Univers n 20 mg 3-10 by mouth ity of tablet 10:53: at [place] 50 bedtime. Medical Branch aspirin 81 Yes 81mg Take 81 mg U nivers mg chewable 3-10 by mouth ity of tablet 10:53: daily. [place] 50 Medical Branch CALCIUM Yes 2000U Take 2,000 Uni vers CARBONATE/V 3-10 Units by ity of ITAMIN D3 10:53: mouth [place] (VITAMIN 50 daily. Medical D-3 ORAL) Branch atorvastati Yes 20mg Take 20 mg Univers n 20 mg 3-10 by mouth ity of tablet 10:53: at [place] 50 bedtime. Medical Branch aspirin 81 Yes 81mg Take 81 mg U nivers mg chewable 3-10 by mouth ity of tablet 10:53: daily. [place] [address] Medical Branch CALCIUM Yes 2000U Take 2,000 Uni vers CARBONATE/V 3-10 Units by ity of ITAMIN D3 10:53: mouth [place] (VITAMIN 50 daily. Medical D-3 ORAL) Branch atorvastati Yes 20mg Take 20 mg Univers n 20 mg 3-10 by mouth ity of tablet 10:53: at [place] [address] bedtime. Medical Branch aspirin 81 Yes 81mg Take 81 mg U nivers mg chewable 3-10 by mouth ity of tablet 10:53: daily. [place] [address] Medical Branch CALCIUM Yes 2000U Take 2,000 Uni vers CARBONATE/V 3-10 Units by ity of ITAMIN D3 10:53: mouth [place] (VITAMIN 50 daily. Medical D-3 ORAL) Branch Losartan Losartan No 1{table QD Losartan Potassium Potassium 1-07 t} Potassium 50 MG 50 MG 00:00: 50 MG 00 Losartan Losartan No 1{table QD Losartan Potassium Potassium 1-07 t} Potassium 50 MG 50 MG 00:00: 50 MG 00 Losartan Losartan No 1{table QD Losartan Potassium Potassium 1-07 t} Potassium 50 MG 50 MG 00:00: 50 MG 00 Losartan Losartan No 1{table QD Losartan Potassium Potassium 1-07 t} Potassium 50 MG 50 MG 00:00: 50 MG 00 atorvastati atorvastati No atorvastat n 20mg n 20mg 7-26 in 20mg 00:00: 00 atorvastati atorvastati No atorvastat n 20mg n 20mg 7-26 in 20mg 00:00: 00 atorvastati atorvastati 2017-0 No atorvastat n 20mg n 20mg 7-26 in 20mg 00:00: 00 atorvastati atorvastati 0 No atorvastat n 20mg n 20mg 7-26 in 20mg 00:00: 00 losartan 25 Yes 25mg Take 1 Univ ers mg tablet 6-20 tablet by ity o f 00:00: mouth [place] 00 daily. Medical Branch losartan 25 Yes 25mg Take 1 Univ ers mg tablet 6-20 tablet by ity o f 00:00: mouth [place] 00 daily. Medical Branch losartan 25 Yes 25mg Take 1 Univ ers mg tablet 6-20 tablet by ity o f 00:00: mouth [place] 00 daily. Medical Branch losartan 25 Yes 25mg Take 1 Univ ers mg tablet 6-20 tablet by ity o f 00:00: mouth [place] 00 daily. Medical Branch losartan 25 Yes 25mg Take 1 Univ ers mg tablet 6-20 tablet by ity o f 00:00: mouth [place] 00 daily. Medical Branch losartan 25 Yes 25mg Take 1 Univ ers mg tablet 6-20 tablet by ity o f 00:00: mouth [place] 00 daily. Medical Branch losartan 25 Yes 25mg Take 1 Univ ers mg tablet 6-20 tablet by ity o f 00:00: mouth [place] 00 daily. Medical Branch losartan 25 Yes 25mg Take 1 Univ ers mg tablet 6-20 tablet by ity o f 00:00: mouth [place] 00 daily. Medical Branch losartan 25 Yes 25mg Take 1 Univ ers mg tablet 6-20 tablet by ity o f 00:00: mouth [place] 00 daily. Medical Branch Invokana Invokana No Invokana 300 MG 300 MG 300 MG Invokana Invokana No Invokana 300 MG 300 MG 300 MG Aspirin 81 Aspirin 81 No 1{table QD Aspirin 81 81 MG 81 MG t} 81 MG Dexilant Dexilant No Dexilant glipiZIDE glipiZIDE No glipiZIDE 10 MG 10 MG 10 MG Fenofibrate Fenofibrate No Fenofibrat e Lyrica 75 Lyrica 75 No 1{capsu QD Lyrica 75 MG MG le} MG Vitamin C Vitamin C No Vitamin C 500 MG 500 MG 500 MG Latanoprost Latanoprost No Latanopros t Montelukast Montelukast No Montelukas Sodium Sodium t Sodium Victoza 18 Victoza 18 No Victoza 18 MG/3ML MG/3ML MG/3ML Clopidogrel Clopidogrel No Clopidogre Bisulfate Bisulfate l 75 MG 75 MG Bisulfate 75 MG Pregabalin Pregabalin No Pregabalin 75 MG 75 MG 75 MG hydroCHLORO hydroCHLORO No hydroCHLOR thiazide thiazide Othiazide Vitamin D-3 Vitamin D-3 No 1{table QD Vitamin 5000 UNIT 5000 UNIT t} D-3 5000 UNIT Vitamin B Vitamin B No Vitamin B 12 12 12 metFORMIN metFORMIN No metFORMIN HCl 1000 MG HCl 1000 MG HCl 1000 MG Atorvastati Atorvastati No Atorvastat n Calcium n Calcium in Calcium 20 MG 20 MG 20 MG Invokana Invokana No Invokana 300 MG 300 MG 300 MG Aspirin 81 Aspirin 81 No 1{table QD Aspirin 81 81 MG 81 MG t} 81 MG Dexilant Dexilant No Dexilant glipiZIDE glipiZIDE No glipiZIDE 10 MG 10 MG 10 MG Fenofibrate Fenofibrate No Fenofibrat e Lyrica 75 Lyrica 75 No 1{capsu QD Lyrica 75 MG MG le} MG Vitamin C Vitamin C No Vitamin C 500 MG 500 MG 500 MG Latanoprost Latanoprost No Latanopros t Montelukast Montelukast No Montelukas Sodium Sodium t Sodium Victoza 18 Victoza 18 No Victoza 18 MG/3ML MG/3ML MG/3ML Clopidogrel Clopidogrel No Clopidogre Bisulfate Bisulfate l 75 MG 75 MG Bisulfate 75 MG Pregabalin Pregabalin No Pregabalin 75 MG 75 MG 75 MG hydroCHLORO hydroCHLORO No hydroCHLOR thiazide thiazide Othiazide Vitamin D-3 Vitamin D-3 No 1{table QD Vitamin 5000 UNIT 5000 UNIT t} D-3 5000 UNIT Vitamin B Vitamin B No Vitamin B 12 12 12 metFORMIN metFORMIN No metFORMIN HCl 1000 MG HCl 1000 MG HCl 1000 MG Atorvastati Atorvastati No Atorvastat n Calcium n Calcium in Calcium 20 MG 20 MG 20 MG Invokana Invokana No Invokana 300 MG 300 MG 300 MG Aspirin 81 Aspirin 81 No 1{table QD Aspirin 81 81 MG 81 MG t} 81 MG Dexilant Dexilant No Dexilant glipiZIDE glipiZIDE No glipiZIDE 10 MG 10 MG 10 MG Fenofibrate Fenofibrate No Fenofibrat e Lyrica 75 Lyrica 75 No 1{capsu QD Lyrica 75 MG MG le} MG Vitamin C Vitamin C No Vitamin C 500 MG 500 MG 500 MG Latanoprost Latanoprost No Latanopros t Montelukast Montelukast No Montelukas Sodium Sodium t Sodium Victoza 18 Victoza 18 No Victoza 18 MG/3ML MG/3ML MG/3ML Clopidogrel Clopidogrel No Clopidogre Bisulfate Bisulfate l 75 MG 75 MG Bisulfate 75 MG Pregabalin Pregabalin No Pregabalin 75 MG 75 MG 75 MG hydroCHLORO hydroCHLORO No hydroCHLOR thiazide thiazide Othiazide Vitamin D-3 Vitamin D-3 No 1{table QD Vitamin 5000 UNIT 5000 UNIT t} D-3 5000 UNIT Vitamin B Vitamin B No Vitamin B 12 12 12 metFORMIN metFORMIN No metFORMIN HCl 1000 MG HCl 1000 MG HCl 1000 MG Atorvastati Atorvastati No Atorvastat n Calcium n Calcium in Calcium 20 MG 20 MG 20 MG Victoza 18 Victoza 18 No Victoza 18 MG/3ML MG/3ML MG/3ML Latanoprost Latanoprost No Latanopros t Clopidogrel Clopidogrel No Clopidogre Bisulfate Bisulfate l 75 MG 75 MG Bisulfate 75 MG Fenofibrate Fenofibrate No Fenofibrat e Vitamin C Vitamin C No Vitamin C 500 MG 500 MG 500 MG Lyrica 75 Lyrica 75 No 1{capsu QD Lyrica 75 MG MG le} MG hydroCHLORO hydroCHLORO No hydroCHLOR thiazide thiazide Othiazide Montelukast Montelukast No Montelukas Sodium Sodium t Sodium Vitamin D-3 Vitamin D-3 No 1{table QD Vitamin 5000 UNIT 5000 UNIT t} D-3 5000 UNIT metFORMIN metFORMIN No metFORMIN HCl 1000 MG HCl 1000 MG HCl 1000 MG Vitamin B Vitamin B No Vitamin B 12 12 12 Aspirin 81 Aspirin 81 No 1{table QD Aspirin 81 81 MG 81 MG t} 81 MG Pregabalin Pregabalin No Pregabalin 75 MG 75 MG 75 MG Atorvastati Atorvastati No Atorvastat n Calcium n Calcium in Calcium 20 MG 20 MG 20 MG Dexilant Dexilant No Dexilant glipiZIDE glipiZIDE No glipiZIDE 10 MG 10 MG 10 MG Immunizations Ordered Filled Immunization Date Status Comments [facility] Immunization Name Name Influenza Virus 2021-06-29 Completed Universit y of Vaccine,quad 00:00:00 [place] [facility] Im,preserve Free Branch 65+ Influenza Virus 2021-06-29 Completed Universit y of Vaccine,quad 00:00:00 [place] Medica l Im,preserve Free Branch 65+ Influenza Virus 2021-06-29 Completed Universit y of Vaccine,quad 00:00:00 [place] Medica l Im,preserve Free Branch 65+ Influenza Virus 2021-06-29 Completed Universit y of Vaccine,quad 00:00:00 [place] Medica l Im,preserve Free Branch 65+ Influenza Virus 2021-06-29 Completed Universit y of Vaccine,quad 00:00:00 [place] Medica l Im,preserve Free Branch 65+ Influenza Virus 2021-06-29 Completed Universit y of Vaccine,quad 00:00:00 [place] Medica l Im,preserve Free Branch 65+ Influenza Virus 2021-06-29 Completed Universit y of Vaccine,quad 00:00:00 [place] Medica l Im,preserve Free Branch 65+ Influenza Virus 2021-06-29 Completed Universit y of Vaccine,quad 00:00:00 [place] Medica l Im,preserve Free Branch 65+ Pneumococcal 2016-10-13 Completed University o f Polysaccharide, 00:00:00 [place] Med ical PPSV23 (PNEUMOVAX) Branch Pneumococcal 2016-10-13 Completed University o f Polysaccharide, 00:00:00 [place] Med ical PPSV23 (PNEUMOVAX) Branch Pneumococcal 2016-10-13 Completed University o f Polysaccharide, 00:00:00 [place] Med ical PPSV23 (PNEUMOVAX) Branch Pneumococcal 2016-10-13 Completed University o f Polysaccharide, 00:00:00 [place] Med ical PPSV23 (PNEUMOVAX) Branch Pneumococcal 2016-10-13 Completed University o f Polysaccharide, 00:00:00 [place] Med ical PPSV23 (PNEUMOVAX) Branch Pneumococcal 2016-10-13 Completed University o f Polysaccharide, 00:00:00 [place] Med ical PPSV23 (PNEUMOVAX) Branch Pneumococcal 2016-10-13 Completed University o f Polysaccharide, 00:00:00 [place] Med ical PPSV23 (PNEUMOVAX) Branch Pneumococcal 2016-10-13 Completed University o f Polysaccharide, 00:00:00 [place] Med ical PPSV23 (PNEUMOVAX) Branch Pneumococcal 2016-10-13 Completed [place] o f Polysaccharide, 00:00:00 [facility] ical PPSV23 (PNEUMOVAX) Branch Vital Signs Vital Name Observation Time Observation Value Comments Source Systolic blood 2022-07-01 16:39:00 142 mm[Hg] Univer sity of [facility] Diastolic blood 2022-07-01 16:39:00 75 mm[Hg] Unive rsity of [facility] Heart rate 2022-07-01 16:39:00 109 /min [facility] Oxygen saturation in 2022-07-01 16:39:00 95 /min [facility] Arterial blood by [facility] Pulse oximetry Branch Body height 2022-07-01 16:37:00 157.5 cm [facility] Body weight 2022-07-01 16:37:00 67.45 kg [facility] BMI 2022-07-01 16:37:00 27.20 kg/m2 [facility] bmi 2022-04-06 10:00:00 25.97 kg/m2 Common [facility] blood pressure 2022-04-06 10:00:00 132 mm[Hg] [facility] systolic [facility] blood pressure 2022-04-06 10:00:00 76 mm[Hg] [facility] - diastolic [facility] height 2022-04-06 10:00:00 62 [in_i] Common [facility] weight 2022-04-06 10:00:00 142 [lb_av] Common [facility] temperature 2022-04-06 10:00:00 97.8 [degF] Common [facility] height 2022-02-24 11:00:00 62 [in_i] Common [facility] weight 2022-02-24 11:00:00 142.7 [lb_av] [facility] - [facility] temperature 2022-02-24 11:00:00 97.7 [degF] Common S [facility] - [facility] bmi 2022-02-24 11:00:00 26.1 kg/m2 Common S [facility]irit - [facility] [place] [facility] blood pressure 2022-02-24 11:00:00 131 mm[Hg] [facility] - systolic [facility] blood pressure 2022-02-24 11:00:00 83 mm[Hg] [facility] - diastolic [facility] Systolic blood 2021-06-29 15:54:00 129 mm[Hg] Univer sity of [facility] Diastolic blood 2021-06-29 15:54:00 73 mm[Hg] [facility] Heart rate 2021-06-29 15:54:00 85 /min [facility] Body weight 2021-06-29 15:54:00 67.614 kg [facility] BMI 2021-06-29 15:54:00 29.11 kg/m2 [facility] Oxygen saturation in 2021-06-29 15:54:00 93 /min [facility] Arterial blood by [facility] Pulse oximetry Branch Procedures Procedure Date / Time Performed Performing Clinician Jewels mirza ASSIGNMENT OF BENEFITS 2022-07-01 16:29:31 Doctor Unassigned, No [facility] Name Medical Branch FLU 2021-06-29 16:14:55 Kris [facility] f [place] VACC(),65+YR, Medical B ranch 0.5 ML,IM,ADJUVANTED,QUAD( FLUAD) Encounters Start End Encounter Admission Attending Care Care Encounter Source Date/Time Date/Time Type Type Clinicians Facility Department ID 2022-02-24 Outpatient Edouard, STLMLC [facility] [id number] Common 11:41:00 Onofre [facility] 2022-02-14 Outpatient Edouard, STLMLC STLC [id number] Common 14:45:00 Onofre [id number] [facility] 2022-08-25 2022-08-25 Outpatient R SHAWNEE [facility] [id number] Univers 08:40:00 08:40:00 DOTTIE ity [facility] 2022-07-01 2022-07-01 Restaurant Delivery Driver Wang, Kevon Lab Main [facility] 1.2.8 40.114 [id number] Univers 12:15:00 12:30:00 Visit Christine Ponceprietozack [place] [id number] ity [facility] [id number] [id number] Oh dical NAL 353 [facility] 2022-07-01 2022-07-01 Outpatient R [facility] [id number] Univers 11:20:00 12:02:27 BETH filomenay o f [facility] 2022-07-01 2022-07-[address] [facility] 1.2.840.114 [id number] Univers 11:20:00 12:02:27 Visit Sethzack [place] [id number] it[place] of [place] [id number] Oh dical NAL 059 [facility] 2022-07-01 2022-07-01 Orders Doctor GREG 1.2.840.114 [id number] Univers 00:00:00 00:00:00 Only Unassigned, REUBEN [id number] ity of [place] [facility] 4.2.7.2.686 Arnol as [id number] [address] 2022-06-30 2022-06-30 Outpatient R [facility] [id number] Univers 11:00:00 11:00:00 BETH rivera o [facility] 2022-06-30 2022-06-30 Outpatient R [facility] [id number] Univers 11:00:00 11:00:00 SETHZACK filomenay o [facility] 2022-06-30 2022-06-[address] [facility] 1.2.009.201 [id number] Univers 00:00:00 00:00:00 Beth OSBORNE [id number] ity of [place].2.[place] [id number] Oh dical NAL 059 [facility] 2022-06-02 2022-06-02 Outpatient R SHAWNEE [facility] [id number] Univers 11:00:00 11:00:00 DOTTIE ity [facility] 2022-04-06 2022-04-06 OFFICE STLMLC STLMLC [id number] Co mmon 00:00:00 00:00:00 VISIT EST Spir it PT LEVEL 3 - [facility] 2022-03-28 2022-03-28 (TEL) STLMLC STLMLC [id number] Co mmon 00:00:00 00:00:00 Spirit [facility] 2022-03-01 2022-03-01 (TEL) STLMLC STLMLC [id number] Co mmon 00:00:00 00:00:00 [facility] 2022-02-24 2022-02-24 OFFICE STLMLC STLMLC [id number] Co mmon 00:00:00 00:00:00 VISIT NEW Spir it PT LEVEL 4 - [facility] 2021-12-10 2021-12-10 [facility] [id number] Univers 10:00:00 10:00:00 [facility] [place] 2021-12-03 2021-12-03 [facility] [id number] Univers 09:28:40 23:59:00 [facility] [place] 2021-06-29 2021-06-[address] [facility] 1.2.840.114 [id number] Univers 11:00:00 11:19:18 Visit Beth OSBORNE 350.1.13.10 [facility] 4.2.7.2.686 Odalys CHERRY [phone] Oh dical NAL 059 Branch BUILDING 2021-06-29 2021-06-29 Outpatient R [facility] [id number] Univers 11:00:00 11:19:18 BETH stafford o [facility] 2021-06-29 2021-06-29 Outpatient [facility] [id number] Univers 11:00:00 11:19:18 BETH stafford o [facility] 2021-06-29 2021-06-29 Outpatient R [facility] [id number] Univers 11:00:00 11:00:00 BETH stafford o f [facility] 2021-06-15 2021-06-[address] [facility] 1.2.840.114 [id number] Univers 00:00:00 00:00:00 Secure Msg Beth [place] 350.1.13.10 ity [facility] [place]2.7.2.[place] [id number] Oh dical NAL 059 Branch [facility] 2021-06-11 2021-06-11 Outpatient [facility] [id number] Univers 08:46:18 23:59:00 DOTTIE ity [facility] 2021-06-11 2021-06-11 Outpatient [facility] [id number] Univers 08:46:18 23:59:00 DOTTIE ity [facility] 2021-06-11 2021-06-11 Orders Doctor GREG 1.2.840.114 [id number] Univers 00:00:00 00:00:00 Only Unassigned, REUBEN 350.1.13.10 ity of [place] [facility] 4.2.7.2.686 Arnol as [id number] [facility] [address] 2021-05-25 2021-05-25 Outpatient R [facility] [id number] Univers 10:00:00 10:00:00 ity of [facility] 2021-04-19 2021-04-19 [facility] [id number] Univers 00:00:00 23:59:00 DOTTIE ity [facility] 2021-04-19 2021-04-19 Hospital WALKER Mallory 1.2.840.114 [id number] Univers 00:00:00 23:59:00 Encounter Dottie REUBEN [id number] ity of [facility] 4.2.7.2.686 [place] [id number] [facility] 844 Branch 2021-01-18 2021-01-18 Outpatient [facility] [id number] Univers 00:00:00 23:59:00 DOTTIE ity [facility] 2021-01-18 2021-01-18 [facility] WALKER Mallory 1.2.840.114 [id number] Univers 00:00:00 23:59:00 Encounter Dottie ALEXIS 350.1.13.10 ity of [facility] 4.2.7.2.686 [place] [id number] [facility] connie [address] 2020-08-24 2020-08-24 [facility] [id number] Univers 00:00:00 00:00:00 SANTHISRI ity of [facility] 2020-07-14 2020-07-14 Outpatient R [facility] [id number] Univers 13:00:00 13:00:00 BETH feliz f [facility] 2020-07-07 2020-07-[address] [facility] 1.2.840.114 [id number] Univers 00:00:00 00:00:00 Outreach Wes PRIMARY 350.1.13.10 i ty [facility] [place].2.[place] [id number] Oh dical [address] 2020-06-24 2020-06-[address] [facility] 1.2.840.114 [id number] Univers 10:37:53 11:26:02 Visit [facility] [place] [facility].1.13.10 [facility] [id number] [phone] Oh dical nal 059 [facility] 2020-06-24 2020-06-24 Outpatient Stephanie PONCE [facility] [id number] Univers 10:40:00 10:40:00 BETH butterfield [facility] 2020-05-26 2020-05-26 Outpatient R [facility] [id number] Univers 08:30:00 08:30:00 ity of [facility] 2020-05-12 2020-05-12 Outpatient R [facility] [id number] Univers 13:00:00 13:00:00 ity [facility] 2020-02-10 2020-02-10 [facility] Hany Parra 1. 2.840.114 [id number] Univers 10:15:00 23:59:00 Encounter Chelsie Remote Device Check At me - Reuben 350.1.13.10 ity of [facility] 4.2.7.2.686 [place] [id number] [facility] [address] 2020-02-10 2020-02-10 [facility] Piero Robison 1.2.840.114 [id number] 10:15:00 23:59:00 Encounter Hany natarajan 350.1.13.10 [facility] [id number] [id number] [facility] 2020-02-10 2020-02-10 [facility] [id number] [facility] 10:15:00 10:15:00 HANY NATARAJAN y [facility] 2019-11-12 2019-11-12 Nurse Visit, [facility] Nurse [facility] 1.2.840.1 [id number] [facility] 13:05:46 16:03:27 Visit Beth Ponce 350.1.13.10 ity of [place].2.[place] [id number] Oh dical nal [address] [place] [address] 2019-11-12 2019-11-12 Nurse Visit, [facility] 1.2.840.114 [id number] 13:05:46 16:03:27 Visit Nurse [place] 350.1.13.10 [place] 4.2.7.2.686 Professio [id number] [address] 2019-11-12 2019-11-12 Outpatient R KRIS [facility] [id number] Univers 13:15:00 13:15:00 BETH stafford o f [facility] 2019-11-12 2019-11-12 Orders Doctor GARZA 1.2.840.114 [id number] Univers 00:00:00 00:00:00 Only UnassignedREUBEN 350.1.13.10 ity of [place] [facility] 4.2.7.2.686 [place] [id number] [address] 2019-11-12 2019-11-12 Orders Doctor GARZA 1.2.840.114 [id number] 00:00:00 00:00:00 Only Unassigned, REUBEN 350.1.13.10 [place] [facility] 4.2.7.2.686 [id number] 2019-11-08 2019-11-08 Outpatient R [facility] [id number] Univers 14:15:00 14:15:00 ity [facility] 2019-10-15 2019-10-15 Outpatient R [facility] [id number] Univers 13:15:00 13:15:00 ity [facility] 2019-08-12 2019-08-12 [facility] Shelby Gorman 1.2.840 .114 [id number] Univers 13:15:00 23:59:00 Encounter Chelsie, Remote Device Check At [facility] [place].1.13.10 [place] [id number] [place] [id number] [address] 2019-08-12 2019-08-12 [facility] [id number] [facility] 13:15:00 13:15:00 SHELBY [facility] 2018-11-12 2018-11-12 [facility] Hany Parra 1. 2.840.114 [id number] Univers 11:45:00 23:59:00 Encounter Chelsie Remote Device Check At [facility] 350.1.13.10 [place] [id number] [place] [phone] [address] Results This patient has no known results.
[2022-07-03 09:17] LABS: Absolute Lymphocytes (CBC) 0.8 K/uL (0.7-4.9); Hematocrit 35.1 % (36.0-45.0); Lymphocytes % 17.6 % (15.3-44.8); MCV 84.3 fL (80-100); RBC Red Blood Cell Count 4.16 M/uL (3.86-4.86)
[2022-07-03] MEDS ORDERED: IPRATROPIUM BROM 0.5MG/2.5ML ONE (09:24)
[2022-07-03] MEDS ORDERED: LEVALBUTEROL 1.25 MG/3 ML NEB ONE (09:24)
[2022-07-03 09:33] LABS: Potassium 3.9 mEq/L (3.5-5.1); Troponin High Sensitivity 5.3 pg/mL (<58.9)
[2022-07-03 09:35] LABS: SARS-COV-2 RT PCR NEGATIVE (NEGATIVE)
--- NOTE | 2022-07-03 10:11 | RAD REPORT ---
[facility] DES[facility] 10[facility]01 am CLINICAL HISTORY: Cough;Congestion COMPARISON: Chest Single View dated 02/28/2020; Chest Single View dated 02/26/2020; Chest Single Vie w dated 02/23/2020; Chest Single View dated 04/19/2018 TECHNIQUE: Portable AP view of the chest. FINDINGS: Patchy bibasilar airspace opacities. Decreased inspiratory effort may partially contribute to the findings. No pneumothorax or effusion. The cardiomediastinal contours are unremarkable. Left chest wall pacer/AICD in place. IMPRESSION: Patchy bibasilar airspace opacities, which could reflect atelectasis or pneumonia.
[2022-07-03] MEDS ORDERED: CEFTRIAXONE 1000 MG/VIAL ONE (10:25)
--- NOTE | 2022-07-03 10:27 | EDPHYS ---
Physician Documentation [facility] Name: Lala Barrett Age: 72 yrs Sex: Female : 1950 Arrival Date: 07/03/2022 Time: 08:36 Bed 15 Private MD: Anup Edouard E ED Physician Bertram Batista HPI: 07/03 10:25 This 72 yrs old Female presents to ER via Ambulatory with complaints of Cough, kb Chest Congestion, Wheezing > 1 Year. 10:25 The patient or guardian reports cough, that is intermittent, described as moderate. kb Onset: The symptoms/episode began/occurred 4 day(s) ago. Severity of symptoms: At their worst the symptoms were mild, moderate, in the emergency department the symptoms are unchanged. Modifying factors: The symptoms are alleviated by nothing, the symptoms are aggravated by nothing. Associated signs and symptoms: Pertinent positives: diarrhea, Pertinent negatives: fever. The patient has experienced similar episodes in the past, a few times. The patient has not recently seen a physician. Historical: - Allergies: 08:44 No Known Allergies; jl7 - PMHx: 08:44 Diabetes - NIDDM; Headaches; Hyperlipidemia; Hypertension; Pacemaker; stroke; TIA; jl7 - Immunization history:: Client reports receiving the 2nd dose of the Covid vaccine, Pneumococcal vaccine is up to date, Flu vaccine is up to date. - Social history:: Smoking status: Patient denies any tobacco usage or history of. ROS: 10:23 Constitutional: Negative for fever, chills, and weight loss. kb 10:23 ENT: Positive for sinus congestion. 10:23 Respiratory: Positive for cough. 10:23 All other systems are negative. 10:24 Abdomen/GI: Positive for diarrhea. kb Exam: 09:11 ECG was reviewed by the Attending Physician. kb 10:24 Constitutional: This is a well developed, well nourished patient who is awake, alert, kb and in no acute distress. Head/Face: Normocephalic, atraumatic. ENT: Moist Mucous membranes Cardiovascular: Regular rate and rhythm with a normal S1 and S2. No gallops, murmurs, or rubs. No pulse deficits. Abdomen/GI: Soft, non-tender. No distention Skin: Warm, dry with normal turgor. Normal color. MS/ Extremity: Pulses equal, no cyanosis. Neurovascular intact. Full, normal range of motion. Neuro: Awake and alert, GCS 15, oriented to person, place, time, and situation. Moves all extremities. Normal gait. 10:24 Respiratory: the patient does not display signs of respiratory distress, Respirations: normal, Breath sounds: wheezing: expiratory that is mild, is scattered. Vital Signs: 08:42 BP 149 / 79; Pulse 110; Resp 19; Temp 98.4; Pulse Ox 96% ; jl7 09:37 BP 140 / 59; Pulse 108; Resp 15 S; Pulse Ox 97% on R/A; kc6 MDM: 08:40 Patient medically screened. kb 10:24 Differential Diagnosis: Bronchitis Influenza Upper Respiratory Infection Pneumonia. kb Data reviewed: vital signs, nurses notes. Consideration of Admission/Observation Escalation of care including admission/observation considered. Admission considered for pneumonia, but pt resp even and unlabored, O2 sat 97% on room air. Nontoxic in appearance. Tolerating po intake. Pt is in agreement with outpatient treatment and will return if symptoms worsen. Counseling: I had a detailed discussion with the patient and/or guardian regarding: the historical points, exam findings, and any diagnostic results supporting the discharge/admit diagnosis, lab results, radiology results, the need for outpatient follow up, a family practitioner, to return to the emergency department if symptoms worsen or persist or if there are any questions or concerns that arise at home. 07/03 08:45 Order name: EKG; Complete Time: 08:46 kb 07/03 08:45 Order name: EKG - Nurse/Tech; Complete Time: 09:01 kb 07/03 08:45 Order name: IV Start; Complete Time: 09:09 kb 07/03 08:45 Order name: CBC with Diff; Complete Time: 09:23 kb 07/03 08:45 Order name: Basic Metabolic Panel; Complete Time: 09:48 kb 07/03 08:45 Order name: COVID-19/FLU A+B; Complete Time: 09:48 kb 07/03 08:45 Order name: Troponin High Sensitivity; Complete Time: 09:48 kb 07/03 08:45 Order name: Chest Single View XRAY; Complete Time: 10:14 kb EC:11 Rate is 104 beats/min. Rhythm is regular. QRS [place] is Normal. [place] interval is normal at kb 124 msec. QRS interval is normal at 78 msec. QT interval is normal at 428 msec. Administered Medications: 09:22 Drug: Ipratropium Inhalation Aerosol 0.5 mg Route: Inhalation; kc6 10:00 Follow up: Response: No adverse reaction kc6 09:22 Drug: Levalbuterol Inhalation 1.25 mg Route: Inhalation; kc6 10:01 Follow up: Response: No adverse reaction kc6 Disposition Summary: 07/03/22 10:26 Discharge Ordered Location: Home kb Condition: Stable kb Diagnosis - Pneumonia, unspecified organism kb Followup: kb - With: Emergency Department - When: As needed - Reason: Worsening of condition Followup: kb - With: Private Physician - When: 2 - 3 days - Reason: Recheck today's complaints, Continuance of care, Re-evaluation by your physician Discharge Instructions: - Discharge Summary Sheet kb - Community-Acquired Pneumonia, Adult, [id number]-br-Wxdh kb Forms: - Medication Reconciliation Form kb - Thank You Letter kb - Antibiotic Education kb - Prescription Opioid Use kb Prescriptions: - albuterol sulfate 90 mcg/actuation Inhalation HFA Aerosol Inhaler - inhale 2 puff by INHALATION route every 4-6 hours As needed; 1 unit; Refills: kb 0, Product Selection Permitted - Zithromax 500 mg Oral Tablet - take 1 tablet by ORAL route once daily for 5 days; 5 tablet; Refills: 0, kb Product Selection Permitted Signatures: Dispatcher [employer] Swapna Dillard FNP-C FNP-Ckb Leal, Jahala RN RN jl7 Leanne Dennis RN RN kc6
--- NOTE | 2022-07-03 10:27 | ER ---
Nurse's Notes [facility] Name: Lala Barrett Age: 72 yrs Sex: Female : 1950 Arrival Date: 07/03/2022 Time: 08:36 Bed 15 Private MD: Anup Edouard E Diagnosis: Pneumonia, unspecified organism Presentation: 07/03 08:42 Chief complaint: Patient states: Cough, chest congestion, diarrhea x 4-5 days, denies jl7 fever. Coronavirus screen: Client presents with at least one sign or symptom that may indicate coronavirus-19. Ebola Screen: No symptoms or risks identified at this time. Initial Sepsis Screen: Does the patient meet any 2 criteria? No. Patient's initial sepsis screen is negative. Does the patient have a suspected source of infection? No. Patient's initial sepsis screen is negative. Risk Assessment: Do you want to hurt yourself or someone else? Patient reports no desire to harm self or others. Onset of symptoms was June 29, 2022. 08:42 Method Of Arrival: Ambulatory [facility] 08:42 Acuity: ADOLPH 3 jl7 Triage Assessment: 08:44 General: Appears in no apparent distress. uncomfortable, Behavior is calm, cooperative, jl7 appropriate for age. Pain: Denies pain. Respiratory: Reports cough that is productive, Airway is patent Respiratory effort is even, unlabored, Respiratory pattern is regular, symmetrical, Onset: The symptoms/episode began/occurred gradually, the patient has mild shortness of breath. Historical: - Allergies: 08:44 No Known Allergies; jl7 - PMHx: 08:44 Diabetes - NIDDM; Headaches; Hyperlipidemia; Hypertension; Pacemaker; stroke; TIA; jl7 - Immunization history:: Client reports receiving the 2nd dose of the Covid vaccine, Pneumococcal vaccine is up to date, Flu vaccine is up to date. - Social history:: Smoking status: Patient denies any tobacco usage or history of. Screenin:37 [facility] ED Fall Risk Assessment (Adult) History of falling in the last 3 months, kc6 including since admission No falls in past 3 months (0 pts) Confusion or Disorientation No (0 pts) Intoxicated or Sedated No (0 pts) Impaired Gait No (0 pts) Mobility Assist Device Used No (0 pt) Altered Elimination No (0 pt) Score/Fall Risk Level 0 - 2 = Low Risk Oriented to surroundings, Maintained a safe environment, Educated pt \T\ family on fall prevention, incl call for assistance when getting out of bed, Assessed \T\ reinforced patient's understanding of fall precautions, Hourly rounding (assess needs \T\ fall precautionary measures) done. Abuse screen: Denies threats or abuse. Denies injuries from another. Nutritional screening: No deficits noted. Tuberculosis screening: No symptoms or risk factors identified. Assessment: 09:45 General: Appears in no apparent distress. comfortable, Behavior is calm, cooperative, kc6 appropriate for age. Pain: Denies pain. Neuro: Anne Agitation-Sedation Scale (RASS): 0 - Alert and Calm Level of Consciousness is awake, alert, obeys commands, Oriented to person, place, time, situation, Appropriate for age. Cardiovascular: Capillary refill < 3 seconds Rhythm is sinus tachycardia. Respiratory: Reports cough that is productive, Airway is patent Trachea midline Respiratory effort is even, unlabored, Respiratory pattern is regular, symmetrical, Breath sounds with crackles bilaterally. GI: No signs and/or symptoms were reported involving the gastrointestinal system. : No signs and/or symptoms were reported regarding the genitourinary system. EENT: No signs and/or symptoms were reported regarding the EENT system. Derm: No signs and/or symptoms reported regarding the dermatologic system. Skin is intact, Skin is pink, warm \T\ dry. Musculoskeletal: No signs and/or symptoms reported regarding the musculoskeletal system. Circulation, motion, and sensation intact. Capillary refill < 3 seconds, Range of motion: intact in all extremities. Vital Signs: 08:42 BP 149 / 79; Pulse 110; Resp 19; Temp 98.4; Pulse Ox 96% ; jl7 09:37 BP 140 / 59; Pulse 108; Resp 15 S; Pulse Ox 97% on R/A; kc6 ED Course: 08:36 Patient arrived in ED. am2 08:36 Anup Edouard MD is Private Physician. am2 08:39 Swapna Stanley FNP-C is [facility] kb 08:39 Bertram Batista MD is Attending Physician. kb 08:44 Triage completed. jl7 08:44 Arm band placed on right wrist. jl7 08:47 Leanne Dennis RN is Primary Nurse. kc6 09:01 EKG done, COVID swab sent to lab. Flu and/or RSV swab sent to lab. tm3 09:09 Initial lab(s) drawn, by me, sent to lab. Inserted saline lock: 22 gauge in left tm3 antecubital area, using aseptic technique. 09:37 Patient has correct armband on for positive identification. Placed in gown. Bed in low kc6 position. Call light in reach. Side rails up X 1. Adult w/ patient. 10:02 Chest Single View XRAY In Process Unspecified. EDMS Administered Medications: 09:22 Drug: Ipratropium Inhalation Aerosol 0.5 mg Route: Inhalation; kc6 10:00 Follow up: Response: No adverse reaction kc6 09:22 Drug: Levalbuterol Inhalation 1.25 mg Route: Inhalation; kc6 10:01 Follow up: Response: No adverse reaction kc6 Outcome: 10:26 Discharge ordered by . kb Signatures: Dispatcher [employer] EDMS Swapna Stanley, SONNYC PURLER-Anoop Sims tm3 Ar Mitchell, RN RN jl7 Marina Tompkins am2 Leanne Dennis, RN RN kc6
[2022-07-03 11:41] VITALS: TEMP 98.4
[2022-07-03 11:43] VITALS: BP 136/62; O2SAT 95
--- NOTE | 2022-07-04 17:37 | EKG ---
Test Date: 2022-07-03 Test Time: 08:58:52 Organizational Effectiveness Consultant: TM MEASUREMENT RESULTS: Intervals: Rate: 104 [place]: 124 QRSD: 78 QT: 326 QTc: 428 [place]: P: 13 [place]: 124 QRS: 10 T: 38 INTERPRETIVE STATEMENTS: Sinus tachycardia Minimal voltage criteria for LVH, may be normal variant Nonspecific T wave abnormality Abnormal ECG Compared to ECG 02/26/2020 19:17:40 Left ventricular hypertrophy now present T-wave abnormality now present Sinus rhythm no longer present Atrial premature complex(es) no longer present Aberrant conduction of supraventricular beat(s) no longer present Electronically Signed On 07-04-22 17:35:35 CDT by Gio Ivy
== END 2022-07-03 10:41 | disposition home or self-care (01) ==
LOC: ER 08:34
DX: J18.9 Pneumonia, unspecified organism (principal); R05.9 Cough, unspecified; R09.89 Other specified symptoms and signs involving the circulatory and respiratory systems; R06.2 Wheezing; E11.8 Type 2 diabetes mellitus with unspecified complications; E78.5 Hyperlipidemia, unspecified; I10 Essential (primary) hypertension; Z95.0 Presence of cardiac pacemaker; I63.9 Cerebral infarction, unspecified; G45.9 Transient cerebral ischemic attack, unspecified; Z20.822 Contact with and (suspected) exposure to COVID-19
CPT/HCPCS: 85025; 80048; 36415; 84484; 0240U; 71045; J7614; J7644; 93005

== ENCOUNTER 2022-12-01 05:34 | Observation (INO) | payer OTHER ==
--- OUTSIDE RECORDS SUMMARY | 2022-12-01 05:38 | XMS REPORT | Continuity of Care Document ---
:1950 Author Organization [facility] t Address [address] [place] [place] [address] Care Team Providers Name Role Phone ONOFRE EDOUARD Primary Care Physician Unavailable Onofre Edouard Attending Clinician Unavailable BETH PONCE Attending Clinician Unavailable DOTTIE MALLORY Attending Clinician Unavailable SELMA HERNANDEZ Attending Clinician Unavailable Doctor Unassigned, [place] Attending Clinician Unavailable Pob, [facility] Lab Main Attending Clinician Unavailable Beth Ponce MD Attending Clinician MARIA INES BOSS Attending Clinician Unavailable MARIA INES BOSS Attending Clinician Unavailable Dottie Mallory MD Attending Clinician SHELBY GORMAN Attending Clinician Unavailable Wes Mccarthy DO Attending Clinician Hany Parra MD Attending Clinician [phone] Chelsie, Remote Device Check At Home - Attending Clinician Unava anjali QUINNAYANNOPOULOS, HANY Attending Clinician Unavailable Visit, Adc Nurse Attending Clinician Unavailable Shelby Gorman MD Attending Clinician DOTTIE MALLORY Admitting Clinician Unavailable MARIA INES BOSS Admitting Clinician Unavailable Payers Payer Name Policy Type Policy Number Effective Date Expiration Date Ary GARZA [id number] 2020 HEALTHCARE 00:00:00 [facility] [place] [facility] Dual 53 [id number] Common Complete [facility] HUMANA CHOICE [id number] 2014 00:00:00 Problems Condition Condition Condition Status Onset Resolution Last Treating Co mments Source Name Details Category Date Date Treatment Clinician Date Sinus Sinus Disease Active Univers pause pause 3-15 ity of 00:00: [place] [address] Medical Branch Essential Essential Disease Active Uni vers hypertensi hypertensi 3-10 it y of on on 00:00: [place] [address] Medical Branch History of History of Disease Active U nivers transient transient 3-10 ity of ischemic ischemic 00:00: [place] attack attack 00 Medical (TIA) (TIA) Branch S/P S/P Disease Active Univers placement placement 6-28 [place]y of [place] cardiac [place] pac[place] 00 [facility] [id number] 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 [facility] [id number] [place] [id number] 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 [facility] Allergies, Adverse Reactions, Alerts Allergy Allergy Status Severity Reaction(s) Onset Inactive Treating Comm ents Source Name Type Date Date Clinician NO KNOWN Drug Active Univers ALLERGIE Class ity of S [facility] Social History Social Habit Start Date Stop Date Quantity Comments Source History of Tobacco [facility] - Use [facility] Sex Assigned At [facility] nathaniel - [facility] Gender identity Universit y [facility] Sexual [facility] Exposure to 2022-06-21 2022-07-01 Not sure University SARS-CoV-2 (event) 00:00:00 11:28:00 [facility] Alcohol intake 2021-06-29 2021-06-29 Current University of 00:00:00 00:00:00 non-drinker of [facility] alcohol Branch (finding) History of Social 2018-10-25 2018-10-25 Univers ity of function 00:00:00 00:00:00 [facility] Tobacco use and 2016-08-03 2016-08-03 Smokeless Universit y of exposure 00:00:00 00:00:00 tobacco non-user [facility] dical Bear Smoking Status Start Date Stop Date Source Never Smoker [facility] Medications Ordered Filled Start Stop Current Ordering Indication Dosage Frequency Signature Comments Components Source Medication Medication Date Date Medication? Clinician (SIG) Name Name clopidogrel Yes 75mg Take 75 mg Univers 75 mg 3-10 by mouth ity of tablet 10:57: daily. [address] Branch Dexlansopra Yes Take by Uni vers zole 3-10 mouth ity of (DEXILANT) 10:57: daily. [place] 60 mg 18 Medical capsule Branch clopidogrel 0 Yes 75mg Take 75 mg Univers 75 mg 3-10 by mouth ity of tablet 10:57: daily. [address] Branch Dexlansopra Yes Take by Uni vers zole 3-10 mouth ity of (DEXILANT) 10:57: daily. [place] 60 mg 18 Medical capsule Branch clopidogrel 0 Yes 75mg Take 75 mg Univers 75 mg 3-10 by mouth ity of tablet 10:57: daily. [address] Dexlansopra Yes Take by Uni vers zole 3-10 mouth ity of (DEXILANT) 10:57: daily. [place] 60 mg 18 Medical capsule Branch clopidogrel 2020-0 Yes 75mg Take 75 mg Univers 75 mg 3-10 by mouth ity of tablet 10:57: daily. [address] Dexlansopra Yes Take by Uni vers zole 3-10 mouth ity of (DEXILANT) 10:57: daily. [place] 60 mg 18 Medical capsule Branch clopidogrel 2020-0 Yes 75mg Take 75 mg Univers 75 mg 3-10 by mouth ity of tablet 10:57: daily. [address] Dexlansopra 2020- Yes Take by Uni vers zole 3-10 mouth ity of (DEXILANT) 10:57: daily. [place] 60 mg 18 Medical capsule Branch clopidogrel 2020-0 Yes 75mg Take 75 mg Univers 75 mg 3-10 by mouth ity of tablet 10:57: daily. [place] [address] Medical Branch Dexlansopra 2020-0 Yes Take by Uni vers zole 3-10 mouth ity of (DEXILANT) 10:57: daily. [place] 60 mg 18 Medical capsule Branch clopidogrel 2020-0 Yes 75mg Take 75 mg Univers 75 mg 3-10 by mouth ity of tablet 10:57: daily. [place] [address] Medical Branch Dexlansopra 0 Yes Take by Uni vers zole 3-10 mouth ity of (DEXILANT) 10:57: daily. [place] 60 mg 18 Medical capsule Branch clopidogrel 2020-0 Yes 75mg Take 75 mg Univers 75 mg 3-10 by mouth ity of tablet 10:57: daily. [place] [address] Medical Branch Dexlansopra 0 Yes Take by Uni vers zole 3-10 mouth ity of (DEXILANT) 10:57: daily. [place] 60 mg 18 Medical capsule Branch clopidogrel 2020-0 Yes 75mg Take 75 mg Univers 75 mg 3-10 by mouth ity of tablet 10:57: daily. [place] [address] Medical Branch Dexlansopra 0 Yes Take by Uni vers zole 3-10 mouth ity of (DEXILANT) 10:57: daily. [place] 60 mg 18 Medical capsule Branch clopidogrel 2020-0 Yes 75mg Take 75 mg Univers 75 mg 3-10 by mouth ity of tablet 10:57: daily. [place] [address] Medical Branch Dexlansopra 0 Yes Take by Uni vers zole 3-10 mouth ity of (DEXILANT) 10:57: daily. [place] 60 mg 18 Medical capsule Branch clopidogrel 2020-0 Yes 75mg Take 75 mg Univers 75 mg 3-10 by mouth ity of tablet 10:57: daily. [place] [address] Medical Branch Dexlansopra 0 Yes Take by Uni vers zole 3-10 mouth ity of (DEXILANT) 10:57: daily. [place] 60 mg 18 Medical capsule Branch hydroCHLORO 2020-0 Yes 12.5mg Take 12.5 Univers thiazide 3-10 mg by ity of 12.5 mg 10:56: mouth [place] capsule 27 daily. Medical Branch hydroCHLORO 2020-0 Yes 12.5mg Take 12.5 Univers thiazide 3-10 mg by ity of 12.5 mg 10:56: mouth [place] capsule 27 daily. Medical Branch hydroCHLORO Yes 12.5mg Take 12.5 Univers thiazide 3-10 mg by ity of 12.5 mg 10:56: mouth [place] capsule 27 daily. Medical Branch hydroCHLORO Yes 12.5mg Take 12.5 Univers thiazide 3-10 mg by ity of 12.5 mg 10:56: mouth [place] capsule 27 daily. Medical Branch hydroCHLORO Yes 12.5mg Take 12.5 Univers thiazide 3-10 mg by ity of 12.5 mg 10:56: mouth [place] capsule 27 daily. Medical Branch hydroCHLORO Yes 12.5mg Take 12.5 Univers thiazide 3-10 mg by ity of 12.5 mg 10:56: mouth [place] capsule 27 daily. Medical Branch hydroCHLORO Yes 12.5mg Take 12.5 Univers thiazide 3-10 mg by ity of 12.5 mg 10:56: mouth [place] capsule 27 daily. Medical Branch hydroCHLORO Yes 12.5mg Take 12.5 Univers thiazide 3-10 mg by ity of 12.5 mg 10:56: mouth [place] capsule 27 daily. Medical Branch hydroCHLORO Yes 12.5mg Take 12.5 Univers thiazide 3-10 mg by ity of 12.5 mg 10:56: mouth [place] capsule 27 daily. Medical Branch hydroCHLORO Yes 12.5mg Take 12.5 Univers thiazide 3-10 mg by ity of 12.5 mg 10:56: mouth [place] capsule 27 daily. Medical Branch hydroCHLORO Yes 12.5mg Take 12.5 Univers thiazide 3-10 mg by ity of 12.5 mg 10:56: mouth [place] capsule 27 daily. Medical Branch metFORMIN Yes 1000mg Take 1,000 Univers 1,000 mg 3-10 mg by ity of tablet 10:54: mouth 2 [place] [address] (two) Medical times Branch daily with meals. glipiZIDE Yes 10mg Take 10 mg Un carmelita 10 mg 3-10 by mouth ity of tablet 10:54: daily. [place] [address] Medical Branch pregabalin 0 Yes 75mg Take 75 mg U nivers (LYRICA) 75 3-10 by mouth 2 it y of mg capsule 10:54: (two) [place] [address] times [facility] daily. Branch metFORMIN 2020-0 Yes 1000mg Take 1,000 Univers 1,000 mg 3-10 mg by ity of tablet 10:54: mouth 2 [place] [address] (two) Medical times Bear daily with meals. glipiZIDE 2020-0 Yes 10mg Take 10 mg Un carmelita 10 mg 3-10 by mouth ity of tablet 10:54: daily. [address] Branch pregabalin 2020-0 Yes 75mg Take 75 mg U nivers (LYRICA) 75 3-10 by mouth 2 it y of mg capsule 10:54: (two) [place] [address] times [facility] daily. Branch metFORMIN 2020-0 Yes 1000mg Take 1,000 Univers 1,000 mg 3-10 mg by ity of tablet 10:54: mouth 2 [place] [address] (two) Medical times [place] daily with meals. glipiZIDE 2020-0 Yes 10mg Take 10 mg Un carmelita 10 mg 3-10 by mouth ity of tablet 10:54: daily. [address] Branch pregabalin 2020-0 Yes 75mg Take 75 mg U nivers (LYRICA) 75 3-10 by mouth 2 it y of mg capsule 10:54: (two) [address] daily[address] Branch metFORMIN 2020-0 Yes 1000mg Take 1,000 Univers 1,000 mg 3-10 mg by ity of tablet 10:54: mouth 2 [place] [address] (two) Medical [facility] daily with meals. glipiZIDE 2020-0 Yes 10mg Take 10 mg Un carmelita 10 mg 3-10 by mouth ity of tablet 10:54: daily. [address] Branch pregabalin 2020-0 Yes 75mg Take 75 mg U nivers (LYRICA) 75 3-10 by mouth 2 it y of mg capsule 10:54: (two) [place] [address] times [facility] daily. Branch metFORMIN 2020-0 Yes 1000mg Take 1,000 Univers 1,000 mg 3-10 mg by ity of tablet 10:54: mouth 2 [place] [address] (two) Medical times [place] daily with meals. glipiZIDE 1-0 Yes 10mg Take 10 mg Un carmelita 10 mg 3-10 by mouth ity of tablet 10:54: daily. [address] Branch pregabalin 1-0 Yes 75mg Take 75 mg U nivers (LYRICA) 75 3-10 by mouth 2 it y of mg capsule 10:54: (two) [place] [address] times [facility] daily. Branch metFORMIN 2020-0 Yes 1000mg Take 1,000 Univers 1,000 mg 3-10 mg by ity of tablet 10:54: mouth 2 [place] [address] (two) Medical times [place] daily with meals. glipiZIDE 2020-0 Yes 10mg Take 10 mg Un carmelita 10 mg 3-10 by mouth ity of tablet 10:54: daily. [address] Branch pregabalin 2020-0 Yes 75mg Take 75 mg U nivers (LYRICA) 75 3-10 by mouth 2 it y of mg capsule 10:54: (two) [place] [address] times [facility] daily. Branch metFORMIN 2020-0 Yes 1000mg Take 1,000 Univers 1,000 mg 3-10 mg by ity of tablet 10:54: mouth 2 [place] [address] (two) Medical [facility] daily with meals. glipiZIDE 2020-0 Yes 10mg Take 10 mg Un carmelita 10 mg 3-10 by mouth ity of tablet 10:54: daily. [address] Branch pregabalin 2020-0 Yes 75mg Take 75 mg U nivers (LYRICA) 75 3-10 by mouth 2 it y of mg capsule 10:54: (two) [place] [address] times [facility] daily. Branch metFORMIN 2020-0 Yes 1000mg Take 1,000 Univers 1,000 mg 3-10 mg by ity of tablet 10:54: mouth 2 [place] [address] (two) Medical [facility] daily with meals. glipiZIDE 2020-0 Yes 10mg Take 10 mg Un carmelita 10 mg 3-10 by mouth ity of tablet 10:54: daily. [address] Branch pregabalin 2020-0 Yes 75mg Take 75 mg U nivers (LYRICA) 75 3-10 by mouth 2 it y of mg capsule 10:54: (two) [place] [address] times [facility] daily. Branch metFORMIN 2020-0 Yes 1000mg Take 1,000 Univers 1,000 mg 3-10 mg by ity of tablet 10:54: mouth 2 [place] [address] (two) Medical times Bear daily with meals. glipiZIDE 1-0 Yes 10mg Take 10 mg Un carmelita 10 mg 3-10 by mouth ity of tablet 10:54: daily. [place] [address] Medical Branch pregabalin 2020-0 Yes 75mg Take 75 mg U nivers (LYRICA) 75 3-10 by mouth 2 it y of mg capsule 10:54: (two) [place] [address] times Medical daily. Branch metFORMIN 2020-0 Yes 1000mg Take 1,000 Univers 1,000 mg 3-10 mg by ity of tablet 10:54: mouth 2 [place] [address] (two) Medical times Bear daily with meals. glipiZIDE 2020-0 Yes 10mg Take 10 mg Un carmelita 10 mg 3-10 by mouth ity of tablet 10:54: daily. [place] [address] Medical Branch pregabalin 0 Yes 75mg Take 75 mg U nivers (LYRICA) 75 3-10 by mouth 2 it y of mg capsule 10:54: (two) [place] [address] times Medical daily. Branch metFORMIN 0 Yes 1000mg Take 1,000 Univers 1,000 mg 3-10 mg by ity of tablet 10:54: mouth 2 [place] [address] (two) Medical times [place] daily with meals. glipiZIDE 2020-0 Yes 10mg Take 10 mg Un carmelita 10 mg 3-10 by mouth ity of tablet 10:54: daily. [place] [address] Medical Branch pregabalin 0 Yes 75mg Take 75 mg U nivers (LYRICA) 75 3-10 by mouth 2 it y of mg capsule 10:54: (two) [place] [address] times Medical daily. Branch atorvastati 0 Yes 20mg Take 20 mg Univers n 20 mg 3-10 by mouth ity of tablet 10:53: at [place] [address] bedtime. Medical Branch aspirin 81 2020-0 Yes 81mg Take 81 mg U nivers mg chewable 3-10 by mouth ity of tablet 10:53: daily. [place] [address] Medical Branch CALCIUM 2020-0 Yes 2000U Take 2,000 Uni vers CARBONATE/V 3-10 Units by ity of ITAMIN D3 10:53: mouth [place] (VITAMIN 50 daily. Medical D-3 ORAL) Branch atorvastati 0 Yes 20mg Take 20 mg Univers n 20 mg 3-10 by mouth ity of tablet 10:53: at [place] 50 bedtime. Medical Branch aspirin 81 2020-0 Yes 81mg Take 81 mg U nivers mg chewable 3-10 by mouth ity of tablet 10:53: daily. [place] [address] Medical Branch CALCIUM 0 Yes 2000U Take 2,000 Uni vers CARBONATE/V 3-10 Units by ity of ITAMIN D3 10:53: mouth [place] (VITAMIN 50 daily. Medical D-3 ORAL) Branch atorvastati Yes 20mg Take 20 mg Univers n 20 mg 3-10 by mouth ity of tablet 10:53: at [place] [address] bedtime. Medical Branch aspirin 81 0 Yes 81mg Take 81 mg U nivers mg chewable 3-10 by mouth ity of tablet 10:53: daily. [place] [address] Medical Branch CALCIUM Yes 2000U Take 2,000 Uni vers CARBONATE/V 3-10 Units by ity of ITAMIN D3 10:53: mouth [place] (VITAMIN 50 daily. Medical D-3 ORAL) Branch atorvastati Yes 20mg Take 20 mg Univers n 20 mg 3-10 by mouth ity of tablet 10:53: at [place] [address] bedtime. Medical Branch aspirin 81 0 Yes 81mg Take 81 mg U nivers mg chewable 3-10 by mouth ity of tablet 10:53: daily. [place] [address] Medical Branch CALCIUM Yes 2000U Take 2,000 Uni vers CARBONATE/V 3-10 Units by ity of ITAMIN D3 10:53: mouth [place] (VITAMIN 50 daily. Medical D-3 ORAL) Branch atorvastati Yes 20mg Take 20 mg Univers n 20 mg 3-10 by mouth ity of tablet 10:53: at [place] [address] bedtime. Medical Branch aspirin 81 0 Yes 81mg Take 81 mg U nivers mg chewable 3-10 by mouth ity of tablet 10:53: daily. [place] [address] Medical Branch CALCIUM 0 Yes 2000U Take 2,000 Uni vers CARBONATE/V 3-10 Units by ity of ITAMIN D3 10:53: mouth [place] (VITAMIN 50 daily. Medical D-3 ORAL) Branch atorvastati 0 Yes 20mg Take 20 mg Univers n 20 mg 3-10 by mouth ity of tablet 10:53: at [place] [address] bedtime. Medical Branch aspirin 81 0 Yes 81mg Take 81 mg U nivers mg chewable 3-10 by mouth ity of tablet 10:53: daily. [place] [address] Medical Branch CALCIUM Yes 2000U Take 2,000 Uni vers CARBONATE/V 3-10 Units by ity of ITAMIN D3 10:53: mouth [place] (VITAMIN 50 daily. Medical D-3 ORAL) Branch atorvastati Yes 20mg Take 20 mg Univers n 20 mg 3-10 by mouth ity of tablet 10:53: at [place] [address] bedtime. Medical Branch aspirin 81 Yes 81mg Take 81 mg U nivers mg chewable 3-10 by mouth ity of tablet 10:53: daily. [place] [address] Medical Branch CALCIUM Yes 2000U Take 2,000 Uni vers CARBONATE/V 3-10 Units by ity of ITAMIN D3 10:53: mouth [place] (VITAMIN 50 daily. Medical D-3 ORAL) Branch atorvastati Yes 20mg Take 20 mg Univers n 20 mg 3-10 by mouth ity of tablet 10:53: at [place] [address] bedtime. Medical Branch aspirin 81 Yes 81mg Take 81 mg U nivers mg chewable 3-10 by mouth ity of tablet 10:53: daily. [place] [address] Medical Branch CALCIUM Yes 2000U Take 2,000 Uni vers CARBONATE/V 3-10 Units by ity of ITAMIN D3 10:53: mouth [place] (VITAMIN 50 daily. Medical D-3 ORAL) Branch atorvastati Yes 20mg Take 20 mg Univers n 20 mg 3-10 by mouth ity of tablet 10:53: at [place] [address] bedtime. Medical Branch aspirin 81 Yes 81mg Take 81 mg U nivers mg chewable 3-10 by mouth ity of tablet 10:53: daily. [place] [address] Medical Branch CALCIUM Yes 2000U Take 2,000 Uni vers CARBONATE/V 3-10 Units by ity of ITAMIN D3 10:53: mouth [place] (VITAMIN 50 daily. Medical D-3 ORAL) Branch atorvastati Yes 20mg Take 20 mg Univers n 20 mg 3-10 by mouth ity of tablet 10:53: at [place] [address] bedtime. Medical Branch aspirin 81 0 Yes 81mg Take 81 mg U nivers mg chewable 3-10 by mouth ity of tablet 10:53: daily. [place] [address] Medical Branch CALCIUM 0 Yes 2000U Take 2,000 Uni vers CARBONATE/V 3-10 Units by ity of ITAMIN D3 10:53: mouth [place] (VITAMIN 50 daily. Medical D-3 ORAL) Branch atorvastati Yes 20mg Take 20 mg Univers n 20 mg 3-10 by mouth ity of tablet 10:53: at [place] [address] bedtime. Medical Branch aspirin 81 Yes 81mg Take 81 mg U nivers mg chewable 3-10 by mouth ity of tablet 10:53: daily. [place] 50 Medical Branch CALCIUM Yes 2000U Take 2,000 Uni vers CARBONATE/V 3-10 Units by ity of ITAMIN D3 10:53: mouth [place] (VITAMIN 50 daily. Medical D-3 ORAL) Branch [...] tablet by ity o f 00:00: mouth [place] 00 daily. Medical Branch losartan 25 Yes 25mg Take 1 Univ ers mg tablet 6-20 tablet by ity o f 00:00: mouth [place] 00 daily. Medical Branch losartan 25 Yes 25mg Take 1 Univ ers mg tablet 6-20 tablet by ity o f 00:00: mouth [place] 00 daily. Medical Branch losartan 25 2016- Yes 25mg Take 1 Univ ers mg tablet 6-20 tablet by ity o f 00:00: mouth [place] 00 daily. Medical Branch losartan 25 Yes 25mg Take 1 Univ ers mg tablet 6-20 tablet by ity o f 00:00: mouth [place] 00 daily. Medical Branch losartan 25 0 Yes 25mg Take 1 Univ ers mg tablet 6-20 tablet by ity o f 00:00: mouth [place] 00 daily. Medical Branch losartan 25 0 Yes 25mg Take 1 Univ ers mg [...] Immunizations Ordered Filled Immunization Date Status Comments Sour e Immunization Name Name Influenza Virus 2021-06-29 Completed Universit y [facility] 65+ Influenza Virus [...] 2016-10-13 Completed University o f Polysaccharide, 00:00:00 [place] Med ical PPSV23 (PNEUMOVAX) Branch Pneumococcal 2016-10-13 Completed University o f Polysaccharide, 00:00:00 [place] Med ical PPSV23 (PNEUMOVAX) Branch Pneumococcal 2016-10-13 Completed [place] o f Polysaccharide, 00:00:00 [facility] ical PPSV23 (PNEUMOVAX) Branch Vital Signs Vital Name Observation Time Observation Value Comments Source Systolic blood 2022-07-01 16:39:00 142 mm[Hg] Univer sity of [facility] Diastolic blood 2022-07-01 16:39:00 75 mm[Hg] Unive rsity of [facility] Heart rate 2022-07-01 16:39:00 109 /min [facility] Oxygen saturation in 2022-07-01 16:39:00 95 /min [facility] Arterial blood by [facility] Pulse oximetry Branch Body height 2022-07-01 16:37:00 157.5 cm [facility] Body weight 2022-07-01 16:37:00 67.45 kg [facility] BMI 2022-07-01 16:37:00 27.20 kg/m2 [facility] bmi 2022-04-06 10:00:00 25.97 kg/m2 Common [facility] blood pressure 2022-04-06 10:00:00 132 mm[Hg] [facility] - systolic [facility] blood pressure 2022-04-06 10:00:00 76 mm[Hg] [facility] - diastolic [facility] height 2022-04-06 10:00:00 62 [in_i] [facility] weight 2022-04-06 10:00:00 142 [lb_av] [facility] temperature 2022-04-06 10:00:00 97.8 [degF] [facility] height 2022-02-24 11:00:00 62 [in_i] [facility] weight 2022-02-24 11:00:00 142.7 [lb_av] [facility] - [facility] temperature 2022-02-24 11:00:00 97.7 [degF] Common S pirit - [facility] bmi 2022-02-24 11:00:00 26.1 kg/m2 Common S pirit - [facility] blood pressure 2022-02-24 11:00:00 131 mm[Hg] [facility] - systolic [facility] blood pressure 2022-02-24 11:00:00 83 mm[Hg] [facility] - diastolic [facility] Systolic blood 2021-06-29 15:54:00 129 mm[Hg] Univer sity of [facility] Diastolic blood 2021-06-29 15:54:00 73 mm[Hg] Unive rsity of [facility] Heart rate 2021-06-29 15:54:00 85 /min [facility] Body weight 2021-06-29 15:54:00 67.614 kg [facility] BMI 2021-06-29 15:54:00 29.11 kg/m2 [facility] Oxygen saturation in 2021-06-29 15:54:00 93 /min [facility] blood by [facility] Pulse oximetry Branch Procedures Procedure Date / Time Performed Performing Clinician [facility] e REFERRAL- 2022-11-04 05:01:00 Doctor Unassigned, No [facility] REQUEST/RESPONSE Name [facility] ASSIGNMENT OF BENEFITS 2022-07-01 16:29:31 Doctor Unassigned, No [facility] Name Medical Branch FLU 2021-06-29 16:14:55 Kris [facility] [place] VACC([id number]),65+YR, Medical B ranch 0.5 ML,IM,ADJUVANTED,QUAD( FLUAD) Encounters Start End Encounter Admission Attending Care Care Encounter Source Date/Time Date/Time Type Type Clinicians Facility Department ID 2022-02-24 [facility] [id number] Common 11:41:00 Onofre [facility] 2022-02-14 [facility] [id number] Common 14:45:00 Onofre [facility] 2022-11-30 2022-11-30 Outpatient R HERNANDEZ, [facility] [id number] Univers 15:00:00 15:00:00 SELMA ity [facility] 2022-11-04 2022-11-04 Orders Doctor GREG [id number] Univers 00:00:00 00:00:00 Only Unassigned, REUBEN [id number] ity of [place] [facility] [id number] Arnol as [id number] [address] 2022-08-25 2022-08-25 Outpatient R SHAWNEE, [facility] [id number] Univers 08:40:00 23:59:00 DOTTIE ity [facility] 2022-07-01 2022-07-01 Glove Boarder Wang, Adc Lab Main [facility] [id number] Univers 12:15:00 12:30:00 Visit Beth Ponce [id number] ity of [id number] [place] PROF[place] [id number] Nv dical NAL 353 [facility] 2022-07-01 2022-07-01 [facility] [id number] Univers 11:20:00 12:02:27 BETH stafford o f [facility] 2022-07-01 2022-07-01 [facility] [id number] Univers 11:20:00 12:02:27 Visit Beth OSBORNE [id number] ity [place]2.[place] [phone] Nv dical NAL 059 [facility] 2022-07-01 2022-07-01 Orders Doctor GARZA [id number] Univers 00:00:00 00:00:00 Only Unassigned, REUBEN [id number] ity of [place] [facility] 4.2.7.2.686 Arnol as [id number] [address] 2022-06-30 2022-06-30 [facility] [id number] Univers 11:00:00 11:00:00 BETH butty o f [facility] 2022-06-30 2022-06-30 Outpatient R KRIS [facility] [id number] Univers 11:00:00 11:00:00 BETH stafford o f [facility] 2022-06-30 2022-06-30 [facility]phone [facility] [id number] Univers 00:00:00 00:00:00 Beth BRADFORD 350.1.13.10 ity [facility] [id number] [id number] [facility] 059 Branch [facility] 2022-06-06 2022-06-06 Outpatient R MARIA INES BOSS [facility] [id number] Univers 00:00:00 23:59:00 MARIA INES BOSS ity [facility] 2022-06-06 2022-06-06 [facility] WALKER Boss [id number] Univers 00:00:00 23:59:00 Encounter Felicita ALEXIS 350.1.13.10 ity [facility] [id number] Arnol as [phone] [facility] [address] 2022-06-02 2022-06-02 Outpatient R SHAWNEE [facility] [id number] Univers 11:00:00 11:00:00 DOTTIE ity of [facility] 2022-04-06 2022-04-06 OFFICE STLMLC STLMLC [id number] Co mmon 00:00:00 00:00:00 VISIT EST Spir it PT LEVEL 3 - [facility] 2022-03-28 2022-03-28 (TEL) STLMLC STLMLC [id number] Co mmon 00:00:00 00:00:00 Spirit - [facility] 2022-03-01 2022-03-01 (TEL) STLMLC STLMLC [id number] Co mmon 00:00:00 00:00:00 Spirit [facility] 2022-02-24 2022-02-24 OFFICE STLMLC STLMLC [id number] Co mmon 00:00:00 00:00:00 VISIT NEW Spir it PT LEVEL 4 - [facility] 2021-12-10 2021-12-10 Outpatient R SHAWNEE, [facility] [id number] Univers 10:00:00 10:00:00 DOTTIE ity [facility] 2021-12-03 2021-12-03 [facility] [id number] Univers 09:28:40 23:59:00 DOTTIE ity [facility] 2021-06-29 2021-06-29 [facility] 1.2.840.114 [id number] Univers 11:00:00 11:19:18 Visit Beth OSBORNE [id number] [facility] [place] [phone] N[place] dical NAL [address] [place] [address] 2021-06-29 2021-06-29 Outpatient R KRIS, [facility] [id number] Univers 11:00:00 11:19:18 BETH stafford o [facility] 2021-06-29 2021-06-29 Outpatient R KRIS, [facility] [id number] Univers 11:00:00 11:19:18 BETH stafford o [facility] 2021-06-29 2021-06-29 Outpatient R KRIS, [facility] [id number] Univers 11:00:00 11:00:00 JHONYAMOS rivera o [facility] 2021-06-15 2021-06-15 Patient Kris, [facility] 1.2.840.114 [id number] Univers 00:00:00 00:00:00 Secure Msg Beth OSBORNE [id number] ity [facility] [place] [phone] Nv dical NAL [address] [place] [address] 2021-06-11 2021-06-11 [facility] [id number] Univers 08:46:18 23:59:00 DOTTIE ity [facility] 2021-06-11 2021-06-11 [facility] [id number] Univers 08:46:18 23:59:00 DOTTIE ity [facility] 2021-06-11 2021-06-11 Orders Doctor GREG 1.2.840.114 [id number] Univers 00:00:00 00:00:00 Only Unassigned, REUBEN [id number] ity of [place] [id number] Arnol as [phone] [facility] [address] 2021-05-25 2021-05-25 Outpatient R [facility] [id number] Univers 10:00:00 10:00:00 ity of [facility] 2021-04-19 2021-04-19 [facility] [id number] Univers 00:00:00 23:59:00 DOTTIE ity [facility] 2021-04-19 2021-04-19 Hospital WALKER Mallory 1.2.840.114 [id number] Univers 00:00:00 23:59:00 Encounter Dottie REUBEN [id number] ity of [place] [id number] [place] [phone] [facility] [address] 2021-01-18 2021-01-18 Outpatient R SHAWNEE [facility] [id number] Univers 00:00:00 23:59:00 DOTTIE ity [facility] 2021-01-18 2021-01-18 Hospital WALKER Mallory 1.2.840.114 [id number] Univers 00:00:00 23:59:00 Encounter Dottie REUBEN [id number] ity of [address]7.2.686 [place] [phone] [place] [id number] [place] 2020-08-24 2020-08-24 Outpatient SHERIF [facility] [id number] Univers 00:00:00 00:00:00 SHELBY ity [facility] 2020-07-14 2020-07-14 Outpatient R KRIS [facility] [id number] Univers 13:00:00 13:00:00 BETH stafford o f [facility] 2020-07-07 2020-07-07 Patient Fabio [facility] 1.2.840.114 [id number] Univers 00:00:00 00:00:00 Outreach Wes PRIMARY [id number] i ty of [facility] [place] [phone] Nv dical [address] 2020-06-24 2020-06-24 Office Kris [facility] 1.2.840.114 [id number] Univers 10:37:53 11:26:02 Visit Beth Osborne [id number] ity [facility] [place]2.7.2.[place] [phone] Nv dical nal 059 [facility] 2020-06-24 2020-06-24 Outpatient R KRIS [facility] [id number] Univers 10:40:00 10:40:00 BETH stafford o f [facility] 2020-05-26 2020-05-26 Outpatient R [facility] [id number] Univers 08:30:00 08:30:00 ity [facility] 2020-05-12 2020-05-12 Outpatient R [facility] [id number] Univers 13:00:00 13:00:00 ity [facility] 2020-02-10 2020-02-10 [facility] Hany Parra 1. 2.840.114 [id number] Univers 10:15:00 23:59:00 Encounter Chelsie Remote Device Check At [facility] Reuben [id number] ity [facility] 4.2.7.2.686 [place] [phone] [address] 2020-02-10 2020-02-10 [facility]3]kiesha Robison 1.2.840.114 [id number] 10:15:00 23:59:00 Encounter Hany natarajan [id number] [facility] 4.2.7.2.686 [id number] [facility] 2020-02-10 2020-02-10 [facility] [id number] Univers 10:15:00 10:15:00 HANY NATARAJAN y of [facility] 2019-11-12 2019-11-12 Nurse Visit, [facility] Nurse [facility] 1.2.840.1 [id number] Univers 13:05:46 16:03:27 Visit Beth Ponce [id number] ity of [place].2.[place] [phone] Nv dical [address] 2019-11-12 2019-11-12 Nurse Visit, [facility] 1.2.840.114 [id number] 13:05:46 16:03:27 Visit Nurse Ashley [id number] [place] 4.2.7.2.686 Professio [phone] [address] 2019-11-12 2019-11-12 Outpatient R KRIS [facility] [id number] Univers 13:15:00 13:15:00 BETH stafford o f [facility] 2019-11-12 2019-11-12 Orders Doctor GARZA 1.2.840.114 [id number] Univers 00:00:00 00:00:00 Only Unassigned, REUBEN [id number] ity of [place] [facility] 4.2.7.2.686 [place] [phone] [address] 2019-11-12 2019-11-12 Orders Doctor GREG 1.2.840.114 [id number] 00:00:00 00:00:00 Only Unassigned, REUBEN [id number] [place] [facility] 4.2.7.2.[phone] [facility] 2019-11-08 2019-11-08 Outpatient R [facility] [id number] Univers 14:15:00 14:15:00 ity of [facility] 2019-10-15 2019-10-15 Outpatient R [facility] [id number] Univers 13:15:00 13:15:00 ity of [facility] 2019-08-12 2019-08-12 Hospital Shelby Gorman 1.2.840 .114 [id number] Univers 13:15:00 23:59:00 Encounter Chelsie, Remote Device Check At [facility] - Reuben 350.1.13.10 ity of [facility] 4.2.7.2.686 [place] [phone] [facility] [address] 2019-08-12 2019-08-12 Outpatient Stephanie GORMAN [facility] [id number] Univers 13:15:00 13:15:00 SHELBY itdebora [facility] 2018-11-12 2018-11-12 [facility] Fidel Hanylaura Robison 1. 2.840.114 [id number] Univers 11:45:00 23:59:00 Encounter Chelsei, Remote Device Check At [facility] [id number] ity [facility] 4.2.7.2.686 [place] as [phone] [facility] [address] Results This patient has no known results.
[2022-12-01] MEDS ORDERED: CEFTRIAXONE 1000 MG/VIAL ONE (06:06)
[2022-12-01] MEDS ORDERED: ACETAMINOPHEN 500 MG TAB ONE (06:06)
[2022-12-01] MEDS ORDERED: ONDANSETRON 4 MG/2 ML VIAL ONE (06:07)
[2022-12-01] MEDS ORDERED: FAMOTIDINE 20 MG/2 ML VIAL IV ONE (06:07)
[2022-12-01] MEDS ORDERED: NA CHLORIDE 0.9% 1,000 ML ONE ×2 (06:07→08:47)
[2022-12-01 06:09] LABS: Absolute Lymphocytes (CBC) 0.5 K/uL (0.7-4.9); Hematocrit 34.9 % (36.0-45.0); Lymphocytes % 5.2 % (15.3-44.8); MCV 84.8 fL (80-100); MPV 9.5 fL (7.6-11.3); Platelets 211 thou/uL (152-406); RBC Red Blood Cell Count 4.12 M/uL (3.86-4.86)
[2022-12-01 06:22] LABS: Protime INR 1.04
[2022-12-01 06:27] LABS: Albumin 3.7 g/dL (3.4-5.0); Bilirubin Total 0.5 mg/dL (0.2-1.0); Protein, Total 7.4 g/dL (6.4-8.2)
[2022-12-01 07:21] LABS: Blood Morphology Comment NOT SEEN (NOT SEEN); Platelet Estimate ADEQ; White Blood Cell Scan OK (OK)
[2022-12-01 08:12] LABS: SARS-CoV-2 Antigen Rapid Res Negative (Negative)
--- NOTE | 2022-12-01 08:14 | EDPHYS ---
Physician Documentation [facility] Name: Lala Barrett Age: 72 yrs Sex: Female : 1950 Arrival Date: 12/01/2022 Time: 05:34 Bed 6 Private MD: ED Physician Junior Chairez HPI: 12/01 06:14 This 72 yrs old Female presents to ER via EMS with unknown complaint. kdr 06:14 Patient's been ill for a few days but particularly since 9:00 last night. She has had kdr nausea and vomiting and diarrhea. Patient is otherwise in stable condition. . Onset: The symptoms/episode began/occurred 2 day(s) ago. Severity of symptoms: At their worst the symptoms were mild moderate just prior to arrival, in the emergency department the symptoms are unchanged. The patient has not experienced similar symptoms in the past. The patient has not recently seen a physician. Historical: - Allergies: 05:46 No Known Allergies; lg3 - PMHx: 05:46 Diabetes - NIDDM; Headaches; Hyperlipidemia; Hypertension; Pacemaker; stroke; TIA; lg3 - PSHx: 05:46 hysterectomy; Ligation of fallopian tube; Appendectomy; cataract; pacemaker placement; lg3 - Immunization history:: Adult Immunizations up to date, Client reports receiving the 2nd dose of the Covid vaccine. - Social history:: Smoking status: Patient denies any tobacco usage or history of. Patient/guardian denies using alcohol, street drugs. ROS: 06:14 Constitutional: Negative for chills, and weight loss. kdr 06:14 Eyes: Negative for injury, pain, redness, and discharge, ENT: Negative for injury, pain, and discharge, Neck: Negative for injury, pain, and swelling, Cardiovascular: Negative for chest pain, palpitations, and edema, Respiratory: Negative for shortness of breath, cough, wheezing, and pleuritic chest pain, Back: Negative for injury and pain, : Negative for injury, bleeding, discharge, and swelling, MS/Extremity: Negative for injury and deformity, Skin: Negative for injury, rash, and discoloration, Neuro: Negative for headache, weakness, numbness, tingling, and seizure activity. Psych: Negative for depression, anxiety, suicide ideation, homicidal ideation, and hallucinations, Allergy/Immunology: Negative for hives, rash, and allergies, Endocrine: Negative for neck swelling, polydipsia, polyuria, polyphagia, and marked weight changes, Hematologic/Lymphatic: Negative for swollen nodes, abnormal bleeding, and unusual bruising. 06:14 Constitutional: Positive for body aches, chills, fatigue, fever, malaise, poor PO intake. 06:14 Abdomen/GI: Positive for abdominal pain, nausea and vomiting, Negative for constipation, abdominal cramps, abdominal distension, black/tarry stool, rectal pain, rectal bleeding, bowel incontinence. Exam: 06:14 Constitutional: This is a well developed, well nourished patient who is awake, alert, kdr and in no acute distress. Head/Face: Normocephalic, atraumatic. Eyes: Pupils equal round and reactive to light, extra-ocular motions intact. Lids and lashes normal. Conjunctiva and sclera are non-icteric and not injected. Cornea within normal limits. Periorbital areas with no swelling, redness, or edema. Neck: Trachea midline, no thyromegaly or masses palpated, and no cervical lymphadenopathy. Supple, full range of motion without nuchal rigidity, or vertebral point tenderness. No Meningismus. Chest/axilla: Normal chest wall appearance and motion. Nontender with no deformity. No lesions are appreciated. Respiratory: Lungs have equal breath sounds bilaterally, clear to auscultation and percussion. No rales, rhonchi or wheezes noted. No increased work of breathing, no retractions or nasal flaring. Abdomen/GI: Soft, non-tender, with normal bowel sounds. No distension or tympany. No guarding or rebound. No evidence of tenderness throughout. Back: No spinal tenderness. No costovertebral tenderness. Full range of motion. Skin: Warm, dry with normal turgor. Normal color with no rashes, no lesions, and no evidence of cellulitis. MS/ Extremity: Pulses equal, no cyanosis. Neurovascular intact. Full, normal range of motion. Neuro: Awake and alert, GCS 15, oriented to person, place, time, and situation. Cranial nerves II-XII grossly intact. Motor strength 5/5 in all extremities. Sensory grossly intact. Cerebellar exam normal. Normal gait. Psych: Awake, alert, with orientation to person, place and time. Behavior, mood, and affect are within normal limits. 06:14 Cardiovascular: Rate: tachycardic, Rhythm: regular, Pulses: no pulse deficits are appreciated, Heart sounds: normal, Edema: is not appreciated. 08:21 ECG was reviewed by the Attending Physician. [facility] Vital Signs: 05:43 BP 118 / 59; Pulse 125; Resp 21 S; Temp 99.3(O); Pulse Ox 97% on R/A; Weight 67.13 kg lg3 (R); Height 5 ft. 2 in. (R); 06:43 BP 135 / 61; Pulse 113; Resp 17 S; Pulse Ox 95% on R/A; lg3 08:49 Pulse 106; Resp 20; Pulse Ox 100% on R/A; ld1 10:20 BP 116 / 52; Pulse 97; Resp 18; Pulse Ox 94% on R/A; ld1 05:43 Body Mass Index 27.07 (67.13 kg, 157.48 cm) 3 MDM: 06:14 Data reviewed: vital signs, nurses notes, lab test result(s), radiologic studies. [facility] 07:14 Patient medically screened. [facility] 12/01 05:53 Order name: Blood Culture Adult (2) [facility] 12/01 05:53 Order name: CBC with Diff; Complete Time: 07:35 [facility] 12/01 05:53 Order name: CMP; Complete Time: 06:57 [facility] 12/01 05:53 Order name: Lactate w/ 2H reflex if indic.; Complete Time: 06:57 [facility] 12/01 05:53 Order name: Protime (+inr); Complete Time: 06:57 [facility] 12/01 05:53 Order name: Ptt, Activated; Complete Time: 06:57 [facility] 12/01 05:53 Order name: Urinalysis w/ reflexes; Complete Time: 10:54 [facility] 12/01 06:09 Order name: Glucose, Ancillary Testing; Complete Time: 06:57 [facility] 12/01 07:15 Order name: Flu; Complete Time: 08:13 [facility] 12/01 07:15 Order name: SARS RAPID; Complete Time: 08:13 [facility] 12/01 07:21 Order name: CBC Smear Scan; Complete Time: 07:35 [facility] 12/01 08:33 Order name: Urine Culture [facility] 12/01 09:32 Order name: Lactate Sepsis 2 HR Follow-up; Complete Time: 10:54 EDMS 08/17 11:16 Order name: Basic Metabolic Panel [facility] 12/01 11:16 Order name: Basic Metabolic Panel [facility] 12/01 07:15 Order name: Chest Single View XRAY; Complete Time: 10:54 [facility] 12/01 08:04 Order name: CT Chest Abdomen Pelvis W/O Contrast; Complete Time: 10:54 [facility] 12/01 05:53 Order name: EKG; Complete Time: 05:54 [facility] 12/01 11:16 Order name: 60g Consistent Carbohydrate (ADA 1800/2000) [facility] 12/01 05:53 Order name: Accucheck; Complete Time: 06:01 [facility] 12/01 05:53 Order name: Cardiac monitoring; Complete Time: 06:01 [facility] 12/01 05:53 Order name: EKG - Nurse/Tech; Complete Time: 06:04 [facility] 12/01 05:53 Order name: IV Saline Lock - Large Bore; Complete Time: 06:01 [facility] 12/01 05:53 Order name: Labs collected and sent; Complete Time: 06:01 [facility] 12/01 05:53 Order name: O2 Per Protocol; Complete Time: 06:01 [facility] 12/01 05:53 Order name: O2 Sat Monitoring; Complete Time: 06:01 [facility] 12/01 05:53 Order name: Vital Signs; Complete Time: 06:01 [facility] 12/01 08:14 Order name: Misc. Order: get ua; Complete Time: 08:18 [facility] EC:21 Rate is 116 beats/min. Rhythm is regular. QRS [place] is Normal. VA interval is normal. [facility] QRS interval is normal. QT interval is normal. No Q waves. T waves are Normal. No ST changes noted. Clinical impression: Sinus tachycardia and No evidence of ischemia. Interpreted by me. Reviewed by me. Administered Medications: 06:04 Drug: Rocephin IV 1 grams Route: IV; Rate: calculated rate; Site: right antecubital; lg3 06:04 Drug: Acetaminophen PO 1000 mg Route: PO; lg3 06:43 Follow up: Response: No adverse reaction lg3 06:04 Drug: Ondansetron IVP 4 mg Route: IVP; Site: right antecubital; lg3 06:42 Follow up: Response: No adverse reaction lg3 06:04 Drug: Famotidine IVP 20 mg Route: IVP; Site: right antecubital; lg3 06:42 Follow up: Response: No adverse reaction lg3 06:04 Drug: NS 0.9% IV 1000 ml Route: IV; Rate: 1 bolus; Site: right antecubital; lg3 06:42 Follow up: IV Status: Completed infusion; IV Intake: 1000ml lg3 08:40 Drug: NS 0.9% IV 1000 ml Route: IV; Rate: 125 ml/hr; Site: right antecubital; ap3 Disposition Summary: 12/01/22 08:13 Hospitalization Ordered Hospitalization Status: Observation roberta Provider: Davie Castano cha Location: Telemetry/MedSurg (observation) roberta Condition: Fair roberta Problem: new roberta Symptoms: have improved roberta Bed/Room Type: Standard [facility] Room Assignment: 211(12/01/22 12:32) ja1 Diagnosis - Vomiting roberta - Diarrhea, unspecified roberta - Weakness roberta - Unspecified kidney failure roberta - Fever, unspecified roberta - Other viral enteritis roberta - UTI/ Urinary tract infection, site not specified roberta Forms: - Medication Reconciliation Form roberta - SBAR form roberta - Leadership Thank You Letter robetra Signatures: Dispatcher [employer] Junior Rock MD MD cha Rittger, Kevin, MD MD kdr Aguilar, Jose RN RN ja1 Marina Damon RN RN ap3 Amy Morgan RN RN lg3 Corrections: (The following items were deleted from the chart) 08:13 05:53 Guzman ordered. lg3 bp 12:32 08:13 roberta porter
--- NOTE | 2022-12-01 08:14 | ER ---
Nurse's Notes [facility] Name: Lala Barrett Age: 72 yrs Sex: Female : 1950 Arrival Date: 12/01/2022 Time: 05:34 Bed 6 Private MD: Diagnosis: Vomiting;Diarrhea, unspecified;Weakness;Unspecified kidney failure;Fever, unspecified;Other viral enteritis;UTI/ Urinary tract infection, site not specified Presentation: 12/01 05:43 Chief complaint: Patient states: N/V/D beginning 2100 last night. Coronavirus screen: lg3 Client denies travel out of the [place] in the last 14 days. At this time, the client does not indicate any symptoms associated with coronavirus-19. Ebola Screen: No symptoms or risks identified at this time. Initial Sepsis Screen: Does the patient meet any 2 criteria? RR > 20 per min. HR > 90 bpm. Initial Sepsis Screen: Does the patient meet any 2 criteria? Yes. Risk Assessment: Do you want to hurt yourself or someone else? Patient reports no desire to harm self or others. Onset of symptoms was November 30, 2022 at 21:00. 05:43 Method Of Arrival: EMS: [facility] lg3 05:43 Acuity: ADOLPH 3 lg3 12:59 Initial Sepsis Screen: Does the patient have a suspected source of infection? No. ld1 Patient's initial sepsis screen is negative. Triage Assessment: 05:46 General: Appears in no apparent distress. uncomfortable, Behavior is calm, cooperative. lg3 Pain: Complains of pain in generalized muscle aches. EENT: No deficits noted. No signs and/or symptoms were reported regarding the EENT system. Neuro: No deficits noted. Anne Agitation-Sedation Scale (RASS): 0 - Alert and Calm Level of Consciousness is awake, alert, obeys commands, Oriented to person, place, time, situation. Cardiovascular: No deficits noted. Denies chest pain, shortness of breath, Capillary refill < 3 seconds Clubbing of nail beds is absent JVD is absent Patient's skin is warm and dry. Respiratory: No deficits noted. Airway is patent Respiratory effort is even, unlabored, Respiratory pattern is regular, symmetrical, tachypnea. GI: Abdomen is round non-distended, Reports diarrhea, nausea, vomiting. : No deficits noted. No signs and/or symptoms were reported regarding the genitourinary system. Derm: No deficits noted. No signs and/or symptoms reported regarding the dermatologic system. Skin is intact, is healthy with good turgor, Skin is dry, Skin is normal, Skin temperature is warm. Musculoskeletal: No deficits noted. Reports generalized weakness. Historical: - Allergies: 05:46 No Known Allergies; lg3 - PMHx: 05:46 Diabetes - NIDDM; Headaches; Hyperlipidemia; Hypertension; Pacemaker; stroke; TIA; lg3 - PSHx: 05:46 hysterectomy; Ligation of fallopian tube; Appendectomy; cataract; pacemaker placement; lg3 - Immunization history:: Adult Immunizations up to date, Client reports receiving the 2nd dose of the Covid vaccine. - Social history:: Smoking status: Patient denies any tobacco usage or history of. Patient/guardian denies using alcohol, street drugs. Screenin:50 [facility] ED Fall Risk Assessment (Adult) History of falling in the last 3 months, lg3 including since admission No falls in past 3 months (0 pts). Abuse screen: Denies threats or abuse. Denies injuries from another. Nutritional screening: No deficits noted. Tuberculosis screening: No symptoms or risk factors identified. Assessment: 05:49 General: see triage assessment. lg3 06:43 Reassessment: Patient appears in no apparent distress at this time. No changes from lg3 previously documented assessment. Patient and/or family updated on plan of care and expected duration. Pain level reassessed. Patient is alert, oriented x 3, equal unlabored respirations, skin warm/dry/pink. 08:49 Reassessment: Patient appears in no apparent distress at this time. No changes from ld1 previously documented assessment. Patient and/or family updated on plan of care and expected duration. Pain level reassessed. Patient is alert, oriented x 3, equal unlabored respirations, skin warm/dry/pink. 12:38 Reassessment: attempted to call report. this nurse was informed receiving nurse will ap3 return my call. Vital Signs: 05:43 BP 118 / 59; Pulse 125; Resp 21 S; Temp 99.3(O); Pulse Ox 97% on R/A; Weight 67.13 kg lg3 (R); Height 5 ft. 2 in. (R); 06:43 BP 135 / 61; Pulse 113; Resp 17 S; Pulse Ox 95% on R/A; lg3 08:49 Pulse 106; Resp 20; Pulse Ox 100% on R/A; ld1 10:20 BP 116 / 52; Pulse 97; Resp 18; Pulse Ox 94% on R/A; ld1 05:43 Body Mass Index 27.07 (67.13 kg, 157.48 cm) lg3 ED Course: 05:37 Patient arrived in ED. kl 05:41 Bertram Batista MD is Attending Physician. kdr 05:43 Amy Morgan, FREDRICK is Primary Nurse. lg3 05:46 Triage completed. lg3 05:46 Arm band placed on right wrist. lg3 05:50 Patient has correct armband on for positive identification. Placed in gown. Bed in low lg3 position. Call light in reach. Side rails up X 1. Client placed on continuous cardiac and pulse oximetry monitoring. NIBP monitoring applied. chemical dependency professional on. Door closed. Noise minimized. 05:50 Inserted saline lock: 20 gauge in right antecubital area, using aseptic technique. lg3 Blood collected. Patient maintains SpO2 saturation greater than 95% on room air. 06:01 Blood Culture Adult (2) Sent. kd3 06:01 CBC with Diff Sent. kd3 06:01 CMP Sent. kd3 06:01 Lactate w/ 2H reflex if indic. Sent. kd3 06:01 Protime (+inr) Sent. kd3 06:01 Ptt, Activated Sent. kd3 07:14 Attending Physician role handed off by Bertram Batista MD roberta 07:14 Junior Chairez MD is Attending Physician. roberta 07:46 SARS RAPID Sent. ld1 07:46 Flu Sent. ld1 08:06 Davie Castano MD is Hospitalizing Provider. roberta 08:28 CT Chest Abdomen Pelvis W/O Contrast In Process Unspecified. EDMS 09:01 Chest Single View XRAY In Process Unspecified. EDMS 12:59 No provider procedures requiring assistance completed. Patient admitted, IV remains in ld1 place. Administered Medications: 06:04 Drug: Rocephin IV 1 grams Route: IV; Rate: calculated rate; Site: right antecubital; lg3 06:04 Drug: Acetaminophen PO 1000 mg Route: PO; lg3 06:43 Follow up: Response: No adverse reaction lg3 06:04 Drug: Ondansetron IVP 4 mg Route: IVP; Site: right antecubital; lg3 06:42 Follow up: Response: No adverse reaction lg3 06:04 Drug: Famotidine IVP 20 mg Route: IVP; Site: right antecubital; lg3 06:42 Follow up: Response: No adverse reaction lg3 06:04 Drug: NS 0.9% IV 1000 ml Route: IV; Rate: 1 bolus; Site: right antecubital; lg3 06:42 Follow up: IV Status: Completed infusion; IV Intake: 1000ml lg3 08:40 Drug: NS 0.9% IV 1000 ml Route: IV; Rate: 125 ml/hr; Site: right antecubital; ap3 Medication: 12:59 VIS not applicable for this client. ld1 Intake: 06:42 IV: 1000ml; Total: 1000ml. lg3 Outcome: 08:13 Decision to Hospitalize by Provider. [facility] 12:59 Admitted to Med/surg accompanied by tech, via wheelchair, room 211, Report called to ochoa Loja RN 12:59 Condition: stable 12:59 Instructed on the need for admit. 13:10 Patient left the ED. ld1 Signatures: Dispatcher [employer] EDMS Nga Goel RN Junior Jansen MD MD cha Rittger, Kevin, MD MD kdr Prokisch, Amanda, RN RN ap3 Gibson, Lacie, RN RN lg3 Belinda Hernandez RN FREDRICK bauer1 Xenia Caldwell, RN RN kd3 Corrections: (The following items were deleted from the chart) 08:51 08:40 BP 125 / 67; ap3 ld1
[2022-12-01 08:30] LABS: Specific Gravity > 1.030 (1.005-1.030); Urine Bacteria None Seen /HPF (<20); Urine Bilirubin NEGATIVE (Negative); Urine Blood Trace (Negative); Urine Clarity Extremely Turbid (Clear); Urine Color Yellow (Yellow); Urine Glucose 2+ (Negative); Urine Granular Casts 0-5 /LPF (None Seen); Urine Mucus 2+ /HPF (None Seen); Urine Protein 1+ (Negative); Urine Urobilinogen Normal (Normal)
--- NOTE | 2022-12-01 09:22 | RAD REPORT ---
EXAM DESCRIPTION: CT - Chest Abd Pelvis Wo Humberto - 12/01/2022 8:26 am CLINICAL HISTORY: Cough;Abdominal distention COMPARISON: No comparisons TECHNIQUE: Thin axial CT images of the chest, abdomen, and pelvis performed without IV contrast. Mul tiplanar reformats were generated and reviewed. All CT scans are performed using dose optimization technique as appropriate and may include automated exposure control or mA/KV adjustment according to patient size. FINDINGS: The lungs are clear of infiltrates. Incidentally noted right lower lobe and left upper lob e peribronchovascular nodules not exceeding 5 millimeter, likely benign given size.No pleural or juan francisco cardial effusion.No intrathoracic adenopathy. The liver, spleen, pancreas, adrenal glands and kidneys are within normal limits. Fatty replacement a nd atrophy in the region of the pancreatic head. Gallbladder is not visualized, may be decompressed or surgically removed. Calcified 2 cm aneurysm at the splenic hilum. Fluid filling of the proximal colon, could relate to enteritis or diarrheal state. No bowel obstructi on, free air, free fluid or abscess. Colonic diverticulosis. Nondistention limits bowel wall evaluati on. Normal appendix. No pathologic lymphadenopathy in the abdomen or pelvis. No worrisome osseous finding. IMPRESSION: Fluid filling of the proximal colon, could relate to enteritis or diarrheal state. No other acute findings in the abdomen and pelvis. Colonic diverticulosis and other incidental findings as above.
--- NOTE | 2022-12-01 09:27 | RAD REPORT ---
EXAM DESCRIPTION: RADChest Single View12/01/2022 8:59 am CLINICAL HISTORY: COUGH COMPARISON: Chest Single View dated 07/03/2022; Chest Single View dated 02/28/2020; Chest Single View dated 02/26/2020; Chest Single View dated 02/23/2020; Chest Abd Pelvis Wo Con dated 12/01/2022 TECHNIQUE: Portable AP view of the chest. FINDINGS: Left chest wall pacer in unchanged position. The lungs are clear with interval improvement of patchy bibasilar airspace opacities. No pneumothorax or effusion. The cardiomediastinal contours are unremarkable. IMPRESSION: No acute cardiopulmonary process.
[2022-12-01] MEDS ORDERED: ONDANSETRON 4 MG/2 ML VIAL IV PRN (11:10)
--- NOTE | 2022-12-01 11:22 | P.HP ---
Certification for Inpatient Patient admitted to: Observation With expected LOS: <2 Midnights Practitioner: I am a practitioner with admitting privileges, knowledge of patient current condition, hospital course, and medical plan of care. Services: Services provided to patient in accordance with Admission requirements found in Title 42 Section 412.3 of the Code of Federal Regulations Patient History Date of Service: 12/01/22 Reason for admission: Urinary tract infection, gastroenteritis History of Present Illness: 72-year-old female patient with medical history significant for diabetes type 2, hypertension, hyperlipidemia, admitted for episode of weakness, diarrhea and found to have UTI. The UA was significantly concerning for UTI and she had episode of loose stools. She denies overt episode of nausea with vomiting but she did have episode of chills. No overt fever. No cough, no shortness of breath. Imaging studies done in the emergency room was not concerning however because of her presentation and elevated lactic acid of 2.5 on admission she was bolused IV fluid and started on empiric antibiotic therapy of Rocephin for UTI and was admitted for inpatient care. Allergies No Known Allergies Allergy (Verified 09/15/17 09:38) Home Medications: Atorvastatin Calcium [Lipitor*] 20 mg PO DAILY 08/26/13 Losartan Potassium [Cozaar*] 1 tab PO DAILY 08/26/13 Metformin HCl [Glucophage] 1,000 mg PO BIDWM 09/03/15 Clopidogrel Bisulfate [Plavix*] 75 mg PO DAILY #30 tablet 09/04/15 Glipizide [Glipizide ER] 10 mg PO BID 02/23/16 Ascorbic Acid [Vitamin C] 250 mg PO DAILY 09/15/17 Aspirin [Adult Aspirin Regimen] 81 mg PO DAILY 09/15/17 Latanoprost [Xalatan] 1 drop OP BEDTIME 09/15/17 Pregabalin [Lyrica*] 75 mg PO BID 09/15/17 Cholecalciferol (Vitamin D3) [Vitamin D3] 1 tab PO DAILY 02/27/20 Cyanocobalamin (Vitamin B-12) [Vitamin B-12] 1 tab PO DAILY 02/27/20 Dexlansoprazole [Dexilant] 60 mg PO BREAKFAST 02/27/20 hydroCHLOROthiazide [Hydrochlorothiazide*] 1 tab PO DAILY 02/27/20 Fenofibrate,Micronized [Fenofibrate] 54 mg PO DAILY 12/01/22 - Past Medical/Surgical History Diabetic: Yes -: hyperlipidemia -: hypertention -: NIIDM since age 39 -: Mild stroke 01/27 -: Staph Left arm 2010 -: TIA 08/2015 -: "tissue that was damaged in heart" -: headaches -: alfredo -: appendectomy -: hysterectomy -: tubal ligation -: antonio cataract sx -: pacemaker -: staph infection to right arm -: carpal tunnel - Family History Mother -: Diabetes Father -: Diabetes, Stroke - Social History Alcohol use: No CD- Drugs: No Caffeine use: Yes Review of Systems General: Malaise Eyes: Unremarkable ENT: Unremarkable Respiratory: Unremarkable Cardiovascular: Unremarkable Gastrointestinal: Unremarkable Genitourinary: Dysuria Musculoskeletal: Unremarkable Integumentary: Unremarkable Neurological: Unremarkable Physical Examination - Physical Exam General: Alert, Oriented x3 HEENT: Atraumatic, Normocephalic Neck: Supple Respiratory: Normal air movement Cardiovascular: Regular rate/rhythm, Normal S1 S2 Gastrointestinal: Soft and benign Musculoskeletal: No swelling Neurological: Normal speech, Normal strength at 5/5 x4 extr - Studies Laboratory Data (last 24 hrs) 12/01/22 12/01/22 12/01/22 05:50 05:50 05:50 WBC 10.20 Hgb 11.8 L Hct 34.9 L Plt Count 211 PT 11.4 INR 1.04 APTT 33.8 Sodium 138 Potassium 4.0 BUN 33 H Creatinine 1.21 H Glucose 274 H Total Bilirubin 0.5 AST 14 L ALT 26 Alkaline Phosphatase 82 Microbiology Data (last 24 hrs): 12/01/22 07:45 Nasopharnyx Influenza Type A Antigen Screen - Final 12/01/22 07:45 Nasopharnyx Influenza Type B Antigen Screen - Final Assessment and Plan - Plan Gastroenteritis: Patient did report loose stool episodes. We will start empiric antibiotic therapy with Flagyl and monitor symptomatology. We will continue IV hydration. Will work-up for possible C. difficile diarrhea if criteria is met. UTI: UA significantly concerning. We have started empiric antibiotic therapy of Rocephin. We will monitor urine culture for adjustment of antibiotic as needed DM 2: We will monitor blood sugar ACHS and continue sliding scale insulin for blood glucose control We will consider long-acting insulin and other oral hypoglycemic agents. Hypertension: We will monitor vital signs per unit protocol and continue antihypertensive medications Hyperlipidemia: Continue statin therapy Prophylaxis: Lovenox for DVT prophylaxis Code status: Full code Disposition: We will treat her underlying infectious processes and discharge her when she is deemed clinically stable - Advance Directives Does patient have a Living Will: No Does patient have a Durable POA for Healthcare: No
[2022-12-01] MEDS: INSULIN -REGULAR HUMAN 50 UNIT/0.5 ML ML SQ SCH ×3 (11:30→20:43)
[2022-12-01 13:25] VITALS: O2SAT 94
[2022-12-01 13:33] VITALS: BMI 27.1
[2022-12-01] MEDS: NA CHLORIDE 0.9% 1,000 ML IV SCH (13:37)
[2022-12-01] MEDS: METRONIDAZOLE 500mg IVPB 500 MG/100 ML BAG IV SCH (17:00)
--- NOTE | 2022-12-01 17:28 | EKG ---
Test Date: 2022-12-01 Test Time: 06:07:55 Hot Car Operator: ABRAN MEASUREMENT RESULTS: Intervals: Rate: 116 TX: 124 QRSD: 72 QT: 316 QTc: 439 [place]: P: 26 TX: 124 QRS: 23 T: 76 INTERPRETIVE STATEMENTS: Sinus tachycardia Low voltage QRS Borderline ECG Compared to ECG 07/03/2022 08:58:52 Low QRS voltage now present Left ventricular hypertrophy no longer present T-wave abnormality no longer present Electronically Signed On 12-01-22 17:26:55 CDT by Gio Ivy
[2022-12-01] MEDS: ACETAMINOPHEN 325 MG TABLET PO PRN (20:40)
[2022-12-02] MEDS: METRONIDAZOLE 500mg IVPB 500 MG/100 ML BAG IV SCH ×3 (04:39→16:02)
[2022-12-02] MEDS: NA CHLORIDE 0.9% 1,000 ML IV SCH ×2 (04:40→17:48)
[2022-12-02 06:49] LABS: C.diff Antigen/Toxin Ag neg : Tox neg (NEG : NEG)
[2022-12-02 06:59] LABS: Potassium 3.4 mEq/L (3.5-5.1)
[2022-12-02] MEDS: INSULIN -REGULAR HUMAN 50 UNIT/0.5 ML ML SQ SCH ×4 (08:56→21:22)
[2022-12-02] MEDS: ENOXAPARIN 40 MG/0.4 ML SQ SCH (08:56)
[2022-12-02] MEDS: CEFTRIAXONE 1,000 MG in NA CHLORIDE 0.9% 50 ML IVPB SCH (10:05)
--- NOTE | 2022-12-02 10:50 | P.PN ---
Subjective Date of Service: 12/02/22 Chief Complaint: Urinary tract infection, gastroenteritis Subjective: No new changes, Improving (has less diarrhea.) Physical Examination - Vital Signs Temperature: 97.7 F Blood Pressure: 117/56 Pulse: 93 Respirations: 14 Pulse Ox (%): 95 - Physical Exam General: Alert, Oriented x3 HEENT: Atraumatic, Normocephalic Neck: Supple Respiratory: Normal air movement Cardiovascular: Regular rate/rhythm, Normal S1 S2 Gastrointestinal: Soft and benign Neurological: Normal speech, Normal strength at 5/5 x4 extr - Studies Microbiology Data (last 24 hrs): 12/01/22 07:45 Nasopharnyx Influenza Type A Antigen Screen - Final 12/01/22 07:45 Nasopharnyx Influenza Type B Antigen Screen - Final Assessment And Plan - Plan Gastroenteritis: Patient has significant improvement in symptoms. Continue empiric Flagyl IV. We will continue to monitor vitals and labs. Pending stool studies UTI: UA significantly concerning. We continue empiric antibiotic therapy of Rocephin. We will monitor urine culture for adjustment of antibiotic if needed. DM 2: We will monitor blood sugar ACHS and continue sliding scale insulin for blood glucose control We will continue long-acting insulin and other oral hypoglycemic agents. Hypertension: We will monitor vital signs per unit protocol and continue antihypertensive medications Hyperlipidemia: we will continue statin therapy Prophylaxis: Lovenox for DVT prophylaxis Code status: Full code Disposition: We will continue to treat her underlying infectious processes and discharge her when she is deemed clinically stable.
[2022-12-02] MEDS: PREGABALIN 75 MG CAP PO SCH (21:21)
[2022-12-02] MEDS: ACETAMINOPHEN 325 MG TABLET PO PRN (21:24)
[2022-12-03] MEDS: METRONIDAZOLE 500mg IVPB 500 MG/100 ML BAG IV SCH ×2 (00:09→08:12)
[2022-12-03] MEDS: NA CHLORIDE 0.9% 1,000 ML IV SCH (06:27)
[2022-12-03] MEDS: ENOXAPARIN 40 MG/0.4 ML SQ SCH (08:13)
[2022-12-03] MEDS: INSULIN -REGULAR HUMAN 50 UNIT/0.5 ML ML SQ SCH (08:13)
[2022-12-03] MEDS: PREGABALIN 75 MG CAP PO SCH (08:13)
[2022-12-03 08:42] VITALS: BP 140/64; TEMP 97.1
[2022-12-03] MEDS: CEFTRIAXONE 1,000 MG in NA CHLORIDE 0.9% 50 ML IVPB SCH (09:42)
--- NOTE | 2022-12-03 09:45 | P.DS ---
Admission Date: 12/01/22 Discharge Date: 12/03/22 Disposition: ROUTINE DISCHARGE Discharge Condition: GOOD Reason for Admission: Urinary tract infection, gastroenteritis Brief History of Present Illness: 72-year-old female patient with medical history significant for diabetes type 2, hypertension, hyperlipidemia, admitted for episode of weakness, diarrhea and found to have UTI. The UA was significantly concerning for UTI and she had episode of loose stools. She denies overt episode of nausea with vomiting but she did have episode of chills. No overt fever. No cough, no shortness of breath. Imaging studies done in the emergency room was not concerning however because of her presentation and elevated lactic acid of 2.5 on admission she was bolused IV fluid and started on empiric antibiotic therapy of Rocephin for UTI and was admitted for inpatient care. Hospital Course: Patient had significant improvement with onset of antibiotic therapy and supportive care with IV fluid. Urine culture showed gram-negative rods and blood cultures were negative. She was continued on IV antibiotic therapy of Rocephin and Flagyl for gastroenteritis episode. She tolerated diet after that was resumed and patient abdominal discomfort improved significantly. She did complain of lethargy and significant weakness. She was deemed stable for discharge to continue with oral prescription of Flagyl and Levaquin for management of UTI and gastroenteritis episode respectively she will follow-up with her primary care doctor within a week of hospital discharge for routine care of other health issues. Vital Signs/Physical Exam: Temp Pulse Resp BP Pulse Ox 97.1 F 83 17 140/64 90 L 12/03/22 08:00 12/03/22 08:00 12/03/22 08:00 12/03/22 08:00 12/03/22 08:00 General: Alert, Oriented x3 HEENT: Atraumatic, Normocephalic Neck: Supple Respiratory: Normal air movement Cardiovascular: Regular rate/rhythm, Normal S1 S2 Gastrointestinal: Soft and benign Musculoskeletal: No swelling Neurological: Normal speech, Normal strength at 5/5 x4 extr Laboratory Data at Discharge: WBC 10.20 thou/uL (4.3-10.9) 12/01/22 05:50 Hgb 11.8 g/dL (12.0-15.0) L 12/01/22 05:50 Hct 34.9 % (36.0-45.0) L 12/01/22 05:50 Plt Count 211 thou/uL (152-406) 12/01/22 05:50 PT 11.4 SECONDS (9.5-12.5) 12/01/22 05:50 INR 1.04 12/01/22 05:50 APTT 33.8 SECONDS (24.3-36.9) 12/01/22 05:50 Sodium 140 mEq/L (136-145) 12/02/22 06:20 Potassium 3.4 mEq/L (3.5-5.1) L D 12/02/22 06:20 BUN 22 mg/dL (7-18) H 12/02/22 06:20 Creatinine 0.88 mg/dL (0.55-1.02) 12/02/22 06:20 Glucose 167 mg/dL (74-106) H 12/02/22 06:20 Total Bilirubin 0.5 mg/dL (0.2-1.0) 12/01/22 05:50 AST 14 U/L (15-37) L 12/01/22 05:50 ALT 26 U/L (13-56) 12/01/22 05:50 Alkaline Phosphatase 82 U/L (45-117) 12/01/22 05:50 Home Medications: Atorvastatin Calcium [Lipitor*] 20 mg PO DAILY 08/26/13 Losartan Potassium [Cozaar*] 1 tab PO DAILY 08/26/13 Metformin HCl [Glucophage] 1,000 mg PO BIDWM 09/03/15 Clopidogrel Bisulfate [Plavix*] 75 mg PO DAILY #30 tablet 09/04/15 Glipizide [Glipizide ER] 10 mg PO BID 02/23/16 Ascorbic Acid [Vitamin C] 250 mg PO DAILY 09/15/17 Aspirin [Adult Aspirin Regimen] 81 mg PO DAILY 09/15/17 Latanoprost [Xalatan] 1 drop OP BEDTIME 09/15/17 Pregabalin [Lyrica*] 75 mg PO BID 09/15/17 Cholecalciferol (Vitamin D3) [Vitamin D3] 1 tab PO DAILY 02/27/20 Cyanocobalamin (Vitamin B-12) [Vitamin B-12] 1 tab PO DAILY 02/27/20 Dexlansoprazole [Dexilant] 60 mg PO BREAKFAST 02/27/20 hydroCHLOROthiazide [Hydrochlorothiazide*] 1 tab PO DAILY 02/27/20 Fenofibrate,Micronized [Fenofibrate] 54 mg PO DAILY 12/01/22 levoFLOXacin [Levaquin] 500 mg PO DAILY #7 tab 12/03/22 metroNIDAZOLE [Flagyl] 500 mg PO TID #15 12/03/22 New Medications: metroNIDAZOLE [Flagyl] 500 mg PO TID #15 levoFLOXacin [Levaquin] 500 mg PO DAILY #7 tab Diet: ADA Activity: Ad karlo Followup: Anup Edouard MD [Primary Care Provider] -
== END 2022-12-03 11:22 | disposition home or self-care (01) ==
LOC: ER 05:34 → ERHOLD 11:10 → 2ND 13:00
PROVIDERS: ADMIT Internal Medicine Nephrology; ATTEND Internal Medicine Nephrology
DX: K52.9 Noninfective gastroenteritis and colitis, unspecified (principal); N39.0 Urinary tract infection, site not specified; E11.9 Type 2 diabetes mellitus without complications; I10 Essential (primary) hypertension; E78.5 Hyperlipidemia, unspecified; Z86.73 Personal history of transient ischemic attack (TIA), and cerebral infarction without residual deficits
CPT/HCPCS: 36415; 71045; 71250; 74176; 80048; 80053; 81001; 82947; 83605; 85025; 85610; 85730; 87040; 87077; 87086; 87088; 87177; 87186; 87209; 87324; 87804; 87811; 93005; 96361; 96374; 96375; 99285; G0378; J0696; J1650; J1815; J2405; J7030

== ENCOUNTER 2024-02-08 04:55 | Inpatient (IN) | payer OTHER ==
--- OUTSIDE RECORDS SUMMARY | 2024-02-08 04:58 | XMS REPORT | Continuity of Care Document ---
Author Name Unknown Address [address] [facility] [place] [address] [facility] thconnect Address [address] [facility] [address] [place] [address] Care Team Providers Care Senior Nurse Manager Name Role Phone BRIE BLACKWOOD Primary Care Physician UnavailAnup Jennings Attending Clinician Unavailable MICHELLE IPSANO Attending Clinician Edelmira BETH [place] Attending Clinician Unavailable MICHAEL BOSS Attending Clinician Unav MICHAEL Pritchett Attending Clinician Unav Michael Pritchett MD Attending Clinician + Michelle Pisano MD Attending Clinician KATY YEPEZ Attending Clinician UnavailKaty Proctor Attending Clinician [phone] Aliya MORIN, Michelle Freitas Attending Clinician Doctor Unassigned, [place] Attending Clinician U jasmin Ponce MD, Beth Attending Clinician [phone] DOTTIE MALLORY Attending Clinician Unavailable Tracie MORIN, Dottie Attending Clinician [phone] CODY AMARAL Attending Clinician Unavailable Cody Mcnamara S Attending Clinician [phone] Selma Hernandez MD Attending Clinician [phone] SELMA HERNANDEZ Attending Clinician Adolfo Piña, [facility] Main Attending Clinician SHELBY Jones Attending Clinician UnavailWes Patricio DO Attending Clinician [phone] Hany Parra MD Attending Clinician [phone] Chelsie, Remote Device Check At Home - Attending Cli nician Unavailable HANY PARRA Attending Clinician Unava ilable Visit, [facility] Nurse Attending Clinician Unavailable Shelby Gorman MD Attending Clinician [phone] MICHAEL BOSS Admitting Clinician Unav KATY Mata Admitting Clinician UnavailDOTTIE Mendoza Admitting Clinician Unavailable Payers Payer Name Policy Type Policy Number Effective Date Expirati on Date Source [facility] [id number] 2020 00:00:00 [facility] Dual Complete [facility] 53 [id number] [facility] HUMANA CHOICE [id number] 2014 00:00:00 Problems Condition Name Condition Details Condition Category Status Onset Date Resolution Date Last Treatment Date Treating Clinician Comments Source Splenic artery aneurysm Splenic artery aneurysm Disease Active 2-20 00:00: 00 [facility] Sinus pause Sinus pause Disease Active 3-15 00:00: 00 [facility] Essential hypertensi on Essential hypertensi on Disease Active 3-10 00:00: 00 [facility] History of transient ischemic attack (TIA) History of transient ischemic attack (TIA) Disease Active 3-10 00:00: 00 [facility] S/P placement of cardiac pacemaker S/P placement of cardiac pacemaker Disease Active 6 00:00: 00 [facility] [id number] Carpal tunnel syndrome of left wrist Problem [facility] [id number] Carpal tunnel syndrome of right wrist Problem [facility] Allergies, Adverse Reactions, Alerts Allergy Name Allergy Type Status Severity Reaction(s) Onset Date Inactive Date Treating Clinician Comments Source NO KNOWN ALLERGIE S Drug Class Active [facility] Social History Social Habit Start Date Stop Date Quantity Comments Source Gender identity [facility] of Tobacco Use [facility] Sex Assigned At [facility] Alcohol intake 2023-07-03 00:00:00 2023-07-03 00:00:00 Current non-drinker of alcohol (finding) [facility] Alcoholic beverage intake 2023-07-03 00:00:00 2023-07-03 00:00:00 Current non-drinker of alcohol (finding) [facility] Tobacco use and exposure 2022-12-15 00:00:00 2022-12-15 00:00:00 Smokeless tobacco non-user [facility] History of Social function 2022-12-15 00:00:00 2022-12-15 00:00:00 [facility] Exposure to SARS-CoV-2 (event) 2022-08-15 00:00:00 2022-08-25 08:39:00 Not sure [facility] Smoking Status Start Date Stop Date Source Never smoked tobacco [facility] Medications Ordered Medication Name Filled Medication Name Start Date Stop Date Current Medication? Ordering Clinician Indication Dosage Frequency Signature (SIG) Comments Components Source semaglutide (OZEMPIC) 1 mg/dose (4 mg/3 mL) PnIj 16 13:15: 28 Yes 1mg inject 1 mg under the skin weekly. [facility] triamcinolo ne acetonide (KENALOG) injection 40 mg 12-15 17:00: 00 12-15 16:09 :00 No [id number] 40mg [facility] Dexlansopra zole (DEXILANT) 60 mg capsule 06-24 10:57: 18 Yes Take by mouth daily. [facility] hydroCHLORO thiazide 12.5 mg capsule 06-24 10:56: 27 Yes 12.5mg Take 12.5 mg by mouth daily. [facility] aspirin 81 mg chewable tablet 06-24 10:53: 50 Yes 81mg Take 81 mg by mouth daily. [facility] CALCIUM CARBONATE/V ITAMIN D3 (VITAMIN D-3 ORAL) 06-24 10:53: 50 Yes 2000U Take 2,000 Units by mouth daily. [facility] Losartan Potassium 50 MG Losartan Potassium 50 MG 04-23 00:00: 00 No 1{table t} QD Losartan Potassium 50 MG Losartan Potassium 50 MG Losartan Potassium 50 MG 04-23 00:00: 00 No 1{table t} QD Losartan Potassium 50 MG Losartan Potassium 50 MG Losartan Potassium 50 MG 04-23 00:00: 00 No 1{table t} QD Losartan Potassium 50 MG Losartan Potassium 50 MG Losartan Potassium 50 MG 04-23 00:00: 00 No 1{table t} QD Losartan Potassium 50 MG atorvastati n 20mg atorvastati n 20mg 11-09 00:00: 00 No atorvastat in 20mg losartan 25 mg tablet 10-04 00:00: 00 Yes 25mg Take 1 tablet by mouth daily. [facility] Invokana 300 MG Invokana 300 MG No Invokana 300 MG Invokana 300 MG Invokana 300 MG No Invokana 300 MG Aspirin 81 81 MG Aspirin 81 81 MG No 1{table t} QD Aspirin 81 81 MG Dexilant Dexilant No Dexilant glipiZIDE 10 MG glipiZIDE 10 MG No glipiZIDE 10 MG Lyrica 75 MG Lyrica 75 MG No 1{capsu le} QD Lyrica 75 MG Vitamin C 500 MG Vitamin C 500 MG No Vitamin C 500 MG Victoza 18 MG/3ML Victoza 18 MG/3ML No Victoza 18 MG/3ML Clopidogrel Bisulfate 75 MG Clopidogrel Bisulfate 75 MG No Clopidogre l Bisulfate 75 MG Pregabalin 75 MG Pregabalin 75 MG No Pregabalin 75 MG metFORMIN HCl 1000 MG metFORMIN HCl 1000 MG No metFORMIN HCl 1000 MG Atorvastati n Calcium 20 MG Atorvastati n Calcium 20 MG No Atorvastat in Calcium 20 MG Invokana 300 MG Invokana 300 MG No Invokana 300 MG Aspirin 81 81 MG Aspirin 81 81 MG No 1{table t} QD Aspirin 81 81 MG Dexilant Dexilant No Dexilant glipiZIDE 10 MG glipiZIDE 10 MG No glipiZIDE 10 MG Lyrica 75 MG Lyrica 75 MG No 1{capsu le} QD Lyrica 75 MG Vitamin C 500 MG Vitamin C 500 MG No Vitamin C 500 MG Victoza 18 MG/3ML Victoza 18 MG/3ML No Victoza 18 MG/3ML Clopidogrel Bisulfate 75 MG Clopidogrel Bisulfate 75 MG No Clopidogre l Bisulfate 75 MG Pregabalin 75 MG Pregabalin 75 MG No Pregabalin 75 MG metFORMIN HCl 1000 MG metFORMIN HCl 1000 MG No metFORMIN HCl 1000 MG Atorvastati n Calcium 20 MG Atorvastati n Calcium 20 MG No Atorvastat in Calcium 20 MG Invokana 300 MG Invokana 300 MG No Invokana 300 MG Aspirin 81 81 MG Aspirin 81 81 MG No 1{table t} QD Aspirin 81 81 MG Dexilant Dexilant No Dexilant glipiZIDE 10 MG glipiZIDE 10 MG No glipiZIDE 10 MG Lyrica 75 MG Lyrica 75 MG No 1{capsu le} QD Lyrica 75 MG Vitamin C 500 MG Vitamin C 500 MG No Vitamin C 500 MG Victoza 18 MG/3ML Victoza 18 MG/3ML No Victoza 18 MG/3ML Clopidogrel Bisulfate 75 MG Clopidogrel Bisulfate 75 MG No Clopidogre l Bisulfate 75 MG Pregabalin 75 MG Pregabalin 75 MG No Pregabalin 75 MG metFORMIN HCl 1000 MG metFORMIN HCl 1000 MG No metFORMIN HCl 1000 MG Atorvastati n Calcium 20 MG Atorvastati n Calcium 20 MG No Atorvastat in Calcium 20 MG Victoza 18 MG/3ML Victoza 18 MG/3ML No Victoza 18 MG/3ML Clopidogrel Bisulfate 75 MG Clopidogrel Bisulfate 75 MG No Clopidogre l Bisulfate 75 MG Vitamin C 500 MG Vitamin C 500 MG No Vitamin C 500 MG Lyrica 75 MG Lyrica 75 MG No 1{capsu le} QD Lyrica 75 MG metFORMIN HCl 1000 MG metFORMIN HCl 1000 MG No metFORMIN HCl 1000 MG Aspirin 81 81 MG Aspirin 81 81 MG No 1{table t} QD Aspirin 81 81 MG Pregabalin 75 MG Pregabalin 75 MG No Pregabalin 75 MG Atorvastati n Calcium 20 MG Atorvastati n Calcium 20 MG No Atorvastat in Calcium 20 MG glipiZIDE 10 MG glipiZIDE 10 MG No glipiZIDE 10 MG Immunizations Ordered Immunization Name Filled Immunization Name Date Status Comments Source Influenza Virus Vaccine,quad Im,preserve Free 65+ 2021-06-29 00:00:00 Completed [facility] Influenza Virus Vaccine,quad Im,preserve Free 65+ 2021-06-29 00:00:00 Completed [facility] Influenza Virus Vaccine,quad Im,preserve Free 65+ 2021-06-29 00:00:00 Completed [facility] Influenza Virus Vaccine,quad Im,preserve Free 65+ 2021-06-29 00:00:00 Completed [facility] Influenza Virus Vaccine,quad Im,preserve Free 65+ 2021-06-29 00:00:00 Completed [facility] Influenza Virus Vaccine,quad Im,preserve Free 65+ 2021-06-29 00:00:00 Completed [facility] Influenza Virus Vaccine,quad Im,preserve Free 65+ 2021-06-29 00:00:00 Completed [facility] Influenza Virus Vaccine,quad Im,preserve Free 65+ (FLUAD) 2021-06-29 00:00:00 Completed [facility] Influenza Virus Vaccine,quad Im,preserve Free 65+ (FLUAD) 2021-06-29 00:00:00 Completed [facility] Influenza Virus Vaccine,quad Im,preserve Free 65+ (FLUAD) 2021-06-29 00:00:00 Completed [facility] Pneumococcal Polysaccharide, PPSV23 (PNEUMOVAX) 2016-10-13 00:00:00 Completed [facility] Pneumococcal Polysaccharide, PPSV23 (PNEUMOVAX) 2016-10-13 00:00:00 Completed [facility] Pneumococcal Polysaccharide, PPSV23 (PNEUMOVAX) 2016-10-13 00:00:00 Completed [facility] Pneumococcal Polysaccharide, PPSV23 (PNEUMOVAX) 2016-10-13 00:00:00 Completed [facility] Pneumococcal Polysaccharide, PPSV23 (PNEUMOVAX) 2016-10-13 00:00:00 Completed [facility] Pneumococcal Polysaccharide, PPSV23 (PNEUMOVAX) 2016-10-13 00:00:00 Completed [facility] Pneumococcal Polysaccharide, PPSV23 (PNEUMOVAX) 2016-10-13 00:00:00 Completed [facility] Pneumococcal Polysaccharide, PPSV23 (PNEUMOVAX) 2016-10-13 00:00:00 Completed [facility] Pneumococcal Polysaccharide, PPSV23 (PNEUMOVAX) 2016-10-13 00:00:00 Completed [facility] Pneumococcal Polysaccharide, PPSV23 (PNEUMOVAX) 2016-10-13 00:00:00 Completed [facility] Pneumococcal Polysaccharide, PPSV23 (PNEUMOVAX) 2016-10-13 00:00:00 Completed [facility] Pneumococcal Polysaccharide, PPSV23 (PNEUMOVAX) Unknown Completed [facility] Influenza Virus Vaccine,quad Im,preserve Free 65+ (FLUAD) Unknown Completed [facility] Pneumococcal Polysaccharide, PPSV23 (PNEUMOVAX) Unknown Completed [facility] Pneumococcal Polysaccharide, PPSV23 (PNEUMOVAX) Unknown Completed [facility] Pneumococcal Polysaccharide, PPSV23 (PNEUMOVAX) Unknown Completed [facility] Influenza Virus Vaccine,quad Im,preserve Free 65+ (FLUAD) Unknown Completed [facility] Pneumococcal Polysaccharide, PPSV23 (PNEUMOVAX) Unknown Completed [facility] Influenza Virus Vaccine,quad Im,preserve Free 65+ (FLUAD) Unknown Completed [facility] Pneumococcal Polysaccharide, PPSV23 (PNEUMOVAX) Unknown Completed [facility] Influenza Virus Vaccine,quad Im,preserve Free 65+ (FLUAD) Unknown Completed [facility] Pneumococcal Polysaccharide, PPSV23 (PNEUMOVAX) Unknown Completed [facility] Influenza Virus Vaccine,quad Im,preserve Free 65+ (FLUAD) Unknown Completed [facility] Pneumococcal Polysaccharide, PPSV23 (PNEUMOVAX) Unknown Completed [facility] Influenza Virus Vaccine,quad Im,preserve Free 65+ (FLUAD) Unknown Completed [facility] Pneumococcal Polysaccharide, PPSV23 (PNEUMOVAX) Unknown Completed [facility] Influenza Virus Vaccine,quad Im,preserve Free 65+ (FLUAD) Unknown Completed [facility] Pneumococcal Polysaccharide, PPSV23 (PNEUMOVAX) Unknown Completed [facility] Influenza Virus Vaccine,quad Im,preserve Free 65+ (FLUAD) Unknown Completed [facility] Pneumococcal Polysaccharide, PPSV23 (PNEUMOVAX) Unknown Completed [facility] Influenza Virus Vaccine,quad Im,preserve Free 65+ (FLUAD) Unknown Completed [facility] Pneumococcal Polysaccharide, PPSV23 (PNEUMOVAX) Unknown Completed [facility] Influenza Virus Vaccine,quad Im,preserve Free 65+ (FLUAD) Unknown Completed [facility] Vital Signs Vital Name Observation Time Observation Value Comments S ource Systolic blood pressure 2024-01-01 18:12:00 129 mm[Hg] [facility] Diastolic blood pressure 2024-01-01 18:12:00 67 mm[Hg] [facility] Heart rate 2024-01-01 18:12:00 93 /min [facility] Oxygen saturation in Arterial blood by Pulse oximetry 2024-01-01 18:12:00 94 /min [facility] Body temperature 2024-01-01 18:10:00 36.72 Christie [facility] Respiratory rate 2024-01-01 18:10:00 18 /min [facility] Body height 2024-01-01 18:10:00 157.5 cm [facility] Body weight 2024-01-01 18:10:00 64.683 kg [facility] BMI 2024-01-01 18:10:00 26.08 kg/m2 [facility] Systolic blood pressure 2023-07-03 21:10:00 128 mm[Hg] [facility] Diastolic blood pressure 2023-07-03 21:10:00 76 mm[Hg] [facility] Heart rate 2023-07-03 21:10:00 104 /min [facility] Body temperature 2023-07-03 21:10:00 36.11 Christie [facility] Respiratory rate 2023-07-03 21:10:00 18 /min [facility] Body height 2023-07-03 21:10:00 157.5 cm [facility] weight 2023-07-03 21:10:00 64.32 kg [facility] BMI 2023-07-03 21:10:00 25.94 kg/m2 [facility] Oxygen saturation in Arterial blood by Pulse oximetry 2023-07-03 21:10:00 95 /min [facility] Systolic blood pressure 2023-06-06 21:31:00 132 mm[Hg] [facility] Diastolic blood pressure 2023-06-06 21:31:00 76 mm[Hg] [facility] Heart rate 2023-06-06 21:31:00 103 /min [facility] Body temperature 2023-06-06 21:31:00 36.56 Christie [facility] Body height 2023-06-06 21:31:00 157.5 cm [facility] Body weight 2023-06-06 21:31:00 63.141 kg [facility] BMI 2023-06-06 21:31:00 25.46 kg/m2 [facility] Oxygen saturation in Arterial blood by Pulse oximetry 2023-06-06 21:31:00 92 /min [facility] Systolic blood pressure 2022-12-15 16:06:00 125 mm[Hg] [facility] Diastolic blood pressure 2022-12-15 16:06:00 65 mm[Hg] [facility] Heart rate 2022-12-15 16:06:00 103 /min [facility] Body height 2022-12-15 16:06:00 157.5 cm [facility] Body weight 2022-12-15 16:06:00 65.953 kg [facility] BMI 2022-12-15 16:06:00 26.59 kg/m2 [facility] Systolic blood pressure 2022-07-01 16:39:00 142 mm[Hg] [facility] Diastolic blood pressure 2022-07-01 16:39:00 75 mm[Hg] [facility] Heart rate 2022-07-01 16:39:00 109 /min [facility] Oxygen saturation in Arterial blood by Pulse oximetry 2022-07-01 16:39:00 95 /min [facility] Body height 2022-07-01 16:37:00 157.5 cm [facility] Body weight 2022-07-01 16:37:00 67.45 kg [facility] BMI 2022-07-01 16:37:00 27.20 kg/m2 [facility] height 2022-04-06 10:00:00 62 [in_i] Commo n [facility] weight 2022-04-06 10:00:00 142 [lb_av] Comm on [facility] temperature 2022-04-06 10:00:00 97.8 [degF] Com [facility] bmi 2022-04-06 10:00:00 25.97 kg/m2 Comm on [facility] blood pressure systolic 2022-04-06 10:00:00 132 mm[Hg] Common [facility] blood pressure diastolic 2022-04-06 10:00:00 76 mm[Hg[facility] height 2022-02-24 11:00:00 62 [in_i] Commo n [facility] weight 2022-02-24 11:00:00 142.7 [lb_av] Co mmon [facility] temperature 2022-02-24 11:00:00 97.7 [degF] Com mon [facility] bmi 2022-02-24 11:00:00 26.1 kg/m2 Commo n [facility] blood pressure systolic 2022-02-24 11:00:00 131 mm[Hg] [facility] blood pressure diastolic 2022-02-24 11:00:00 83 mm[Hg] [facility] Systolic blood pressure 2021-06-29 15:54:00 129 mm[Hg] [facility] Diastolic blood pressure 2021-06-29 15:54:00 73 mm[Hg] [facility] Heart rate 2021-06-29 15:54:00 85 /min [facility] Body weight 2021-06-29 15:54:00 67.614 kg [facility] BMI 2021-06-29 15:54:00 29.11 kg/m2 [facility] Oxygen saturation in Arterial blood by Pulse oximetry 2021-06-29 15:54:00 93 /min [facility] Procedures Procedure Date / Time Performed Performing Clinician Source CARDIAC DEVICE CHECK - REMOTE - PACEMAKER 2024-02-08 06:43:01 Michael Boss [facility] CARDIAC DEVICE CHECK - REMOTE - PACEMAKER 2023-11-02 05:25:31 Michael Boss [facility] SUPERIOR MESENTERIC ARTERY DUPLEX - BY VASCULAR LAB 2023-07-17 13:44:00 Katy Yepez [facility] ASSIGNMENT OF BENEFITS 2023-07-03 21:03:04 Doctor Unassigned, [place] [facility] XR SHOULDER <2 VW LEFT 2022-12-15 16:14:03 Cody Amaral [facility] REFERRAL- REQUEST/RESPONSE 2022-11-04 05:01:00 Doctor Unassigned, [place] [facility] ASSIGNMENT OF BENEFITS 2022-07-01 16:29:31 Doctor Unassigned, [place] [facility] FLU VACC([id number]),65+YR ,0.5 ML,IM,ADJUVANTED,QUAD (FLUAD) 2021-06-29 16:14:55 Beth Ponce [facility] Encounters Start Date/Time End Date/Time Encounter Type Admission Type Attending Clinicians Care Facility Care Department Encounter ID Source 2022-02-24 11:41:00 [id number] 2022-02-14 14:45:00 [facility] [id number] [facility] 2024-02-08 15:30:00 2024-02-08 15:30:00 Outpatient FELICITA REECE CHOCK[facility]INGA M [facility] [id number] [facility] 2024-01-25 00:50:00 2024-01-25 23:59:00 Outpatient FELICITA BOSS CHOCKALINGA M [facility] [id number] [facility] 2024-01-25 00:50:00 2024-01-25 23:59:00 Hospital Encounter Felicita Boss [facility] [id number] 350.1.13.10 4.2.7.2.686 [id number] [facility] 2024-01-25 00:00:00 2024-01-25 00:00:00 Outpatient FELICITA REECE CHOCKALINGA M [facility] [id number] [facility] 2024-01-01 13:00:00 2024-01-01 13:56:55 Outpatient MICHELLE VARGAS [facility] [id number] [facility] 2024-01-01 13:00:00 2024-01-01 13:56:55 [facility] .2.840.114 350.1.13.10 4.2.7.2.686 [id number] [facility] 2023-11-02 00:25:31 2023-11-02 23:59:00 Outpatient R FELICITA BOSS CHOCKALINGA M [facility] [id number] [facility] 2023-11-02 00:25:31 2023-11-02 23:59:00 Hospital Encounter Felicita Boss [facility] 1.2.840.114 350.1.13.10 4.2.7.2.686 [id number] [facility] 2023-08-10 13:04:47 2023-08-10 23:59:00 Outpatient R CHANTEL [facility]NAYAN [facility] [id number] [facility] 2023-08-10 13:04:47 2023-08-10 23:59:00 Hospital Encounter Felicita Boss [facility] 1.2.840.114 350.1.13.10 4.2.7.2.686 [id number] [facility] 2023-07-17 08:00:00 2023-07-17 23:59:00 Outpatient R KATY YEPEZ [facility] [id number] [facility] 2023-07-17 08:00:00 2023-07-17 23:59:00 Hospital Encounter Katy Yepez [facility] 1.2.840.114 350.1.13.10 4.2.7.2.686 [id number] [facility] 2023-07-03 16:15:00 2023-07-03 16:36:06 Outpatient R MICHELLE PISANO [facility] [id number] [facility] 2023-07-03 16:15:00 2023-07-03 16:36:06 Office Visit Michelle Pisano [facility] 1.2.840.114 350.1.13.10 4.2.7.2.686 [id number] [facility] 2023-07-03 00:00:00 2023-07-03 00:00:00 Orders Only Doctor Unassigned, [place] [facility] 1.840.114 350.1.13.10 4.2.7.2.686 [id number] [facility] 2023-06-06 15:20:00 2023-06-06 15:51:09 Outpatient R KRIS [facility] [id number] [facility] 2023-06-06 15:20:00 2023-06-06 15:51:09 [facility] 1..840.114 350.1.13.10 4.2.7.2.686 [id number] [facility] 2023-06-05 00:00:00 2023-06-05 00:00:00 Telephone Felicita Boss [facility] BUILDING 1.840.114 350.1.13.10 4.2.7.2.686 [id number] [facility] 2023-02-23 08:20:32 2023-02-23 23:59:00 Outpatient R DOTTIE MALLORY [facility] [id number] [facility] 2023-02-23 08:20:32 2023-02-23 23:59:00 Hospital Encounter Tracie [facility] BUILDING 1..840.114 350.1.13.10 4.2.7.2.686 [id number] [facility] 2022-12-15 11:09:10 2022-12-15 23:59:00 Outpatient R CODY AMARAL [facility] [id number] [facility] 2022-12-15 11:09:10 2022-12-15 23:59:00 Hospital Encounter Cody Amaral [facility] 1..840.114 350.1.13.10 4.2.7.2.686 [id number] [facility] 2022-12-15 11:15:00 2022-12-15 13:12:46 Office Visit Selma Hernandez [facility] 1..840.114 350.1.13.10 4.2.7.2.686 [id number] [facility] 2022-11-30 15:00:00 2022-11-30 15:00:00 Outpatient R SELMA HERNANDEZ [facility] [id number] [facility] 2022-11-04 00:00:00 2022-11-04 00:00:00 Orders Only Doctor Unassigned, [place] [facility] 1..840.114 350.1.13.10 4.2.7.2.686 [id number] [facility] 2022-08-25 08:40:00 2022-08-25 23:59:00 Outpatient R DOTTIE MALLORY [facility] [id number] [facility] 2022-07-01 12:15:00 2022-07-01 12:30:00 Automotive Mechanical Engineer Visit Pob, Adc Lab Main [facility] 1..840.114 350.1.13.10 4.2.7.2.686 [id number] [facility] 2022-07-01 11:20:00 2022-07-01 12:02:27 [id number] 2022-07-01 11:20:00 2022-07-01 12:02:27 Office Visit Kris [facility] 1..840.114 350.1.13.10 4.2.7.2.686 [id number] [facility] [facility] 2022-07-01 00:00:00 2022-07-01 00:00:00 Orders Only Doctor Unassigned, [place] [facility] 1..840.114 350.1.13.10 4.2.7.2.686 [id number] [facility] 2022-07-01 00:00:00 2022-07-01 00:00:00 Patient Secure Msg Kris [facility] BUILDING 1.2.840.114 350.1.13.10 4.2.7.2.686 [id number] [facility] 2022-06-30 11:00:00 2022-06-30 11:00:00 [facility] [id number] 2022-06-30 11:00:00 2022-06-30 11:00:00 [facility] [id number] [facility] 2022-06-30 00:00:00 2022-06-30 00:00:00 Telephone Kris [facility] 1..840.114 350.1.13.10 4.2.7.2.686 [id number] [facility] 2022-06-06 00:00:00 2022-06-06 23:59:00 Outpatient R FELICITA BOSS [place] M [facility] [id number] [facility] 2022-06-06 00:00:00 2022-06-06 23:59:00 Hospital Encounter Felicita Boss [facility] 1..840.114 350.1.13.10 4.2.7.2.686 [id number] [facility] 2022-06-02 11:00:00 2022-06-02 11:00:00 Outpatient R DOTTIE MALLORY [facility] [id number] [facility] 2022-04-06 00:00:00 2022-04-06 00:00:00 OFFICE VISIT EST PT LEVEL 3 STLMLC STLMLC [id number] [facility] 2022-03-28 00:00:00 2022-03-28 00:00:00 (TEL) STLMLC STLMLC [id number] [facility] 2022-03-01 00:00:00 2022-03-01 00:00:00 (TEL) STLMLC STLMLC [id number] [facility] 2022-02-24 00:00:00 2022-02-24 00:00:00 OFFICE VISIT NEW PT LEVEL 4 STLMLC STLMLC [id number] [facility] 2021-12-10 10:00:00 2021-12-10 10:00:00 Outpatient DOTTIE MCCLENDON [facility] [id number] [facility] 2021-12-03 09:28:40 2021-12-03 23:59:00 Outpatient DOTITE MCCLENDON [facility] [id number] [facility] 2021-06-29 11:00:00 2021-06-29 11:19:18 [facility] 1.2.840.114 350.1.13.10 4.2.7.2.686 [id number] [facility] 2021-06-29 11:00:00 2021-06-29 11:19:18 Outpatient R BETH PONCE [facility] [id number] [facility] 2021-06-29 11:00:00 2021-06-29 11:19:18 Outpatient R BETH PONCE [facility] [id number] [facility] 2021-06-29 11:00:00 2021-06-29 11:00:00 Outpatient R BETH PONCE [facility] [id number] [facility] 2021-06-15 00:00:00 2021-06-15 00:00:00 [facility] 1..840.114 350.1.13.10 4.2.7.2.686 [id number] [facility] 2021-06-14 00:00:00 2021-06-14 00:00:00 [facility] 1.2840.114 350.1.13.10 4.2.7.2.686 [id number] [facility] 2021-06-11 08:46:18 2021-06-11 23:59:00 [facility] [id number] [facility] 2021-06-11 08:46:18 2021-06-11 23:59:00 Outpatient Stephanie MALLORY [facility] [id number] [facility] 2021-06-11 00:00:00 2021-06-11 00:00:00 Orders Only Doctor Unassigned, [place] [facility] 1.840.114 350.1.13.10 4.2.7.2.686 [id number] [facility] 2021-05-25 10:00:00 2021-05-25 10:00:00 Outpatient R [facility] [id number] [facility] 2021-04-19 00:00:00 2021-04-19 23:59:00 Outpatient DOTTIE MALLORY [facility] [id number] [facility] 2021-04-19 00:00:00 2021-04-19 23:59:00 Hospital Encounter Dottie Mallory [facility] 1.2840.114 350.1.13.10 4.2.7.2.686 [id number] [facility] 2021-01-18 00:00:00 2021-01-18 23:59:00 Outpatient R DOTTIE MALLORY [facility] [id number] [facility] 2021-01-18 00:00:00 2021-01-18 23:59:00 Hospital Encounter Dottie Mallory [facility] 1.2.840.114 350.1.13.10 4.2.7.2.686 [id number] [facility] 2020-08-24 00:00:00 2020-08-24 00:00:00 Outpatient SHELBY GORMAN [facility] [id number] [facility] 2020-07-15 00:00:00 2020-07-15 00:00:00 Patient Secure Msg Kris [facility] NAL BUILDING 1.2.840.114 350.1.13.10 4.2.7.2.686 [id number] [facility] 2020-07-14 13:00:00 2020-07-14 13:00:00 [id number] 2020-07-07 00:00:00 2020-07-07 00:00:00 Patient Outreach Wes Mccarthy [facility] 1.2.840.114 350.1.13.10 4.2.7.2.686 [id number] [facility] 2020-06-24 10:37:53 2020-06-24 11:26:02 [facility] 1.2.840.114 350.1.13.10 4.2.7.2.686 [id number] [facility] 2020-06-24 10:40:00 2020-06-24 10:40:00 [facility] [id number] [facility] 2020-05-26 08:30:00 2020-05-26 08:30:00 Outpatient R [facility] [id number] [facility] 2020-05-12 13:00:00 2020-05-12 13:00:00 Outpatient R [facility] [id number] [facility] 2020-02-10 10:15:00 2020-02-10 23:59:00 Hospital Encounter Piero zhu Hany Chelsie, Remote Device Check At Home - [facility] 1.2840.114 350.1.13.10 4.2.7.2.686 [id number] [facility] 2020-02-10 10:15:00 2020-02-10 23:59:00 Hospital Encounter Margaretfrank marko Hany [facility] 1.2840.114 350.1.13.10 4.2.7.2.686 [id number] 2020-02-10 10:15:00 2020-02-10 10:15:00 Outpatient R KAIHANY FLOWER [facility] [id number] [facility] 2019-11-12 13:05:46 2019-11-12 16:03:27 Nurse Visit Visit, Adc Nurse [facility] 1.840.114 350.1.13.10 4.2.7.2.686 [id number] [facility] 2019-11-12 13:05:46 2019-11-12 16:03:27 Nurse Visit Visit, [facility] Nurse [facility] 1.2840.114 350.1.13.10 4.2.7.2.686 [id number] 2019-11-12 13:15:00 2019-11-12 13:15:00 [facility] [id number] [facility] 2019-11-12 00:00:00 2019-11-12 00:00:00 Orders Only Doctor Unassigned, [place] [facility] 1.2.840.114 350.1.13.10 4.2.7.2.686 [id number] [facility] 2019-11-12 00:00:00 2019-11-12 00:00:00 Orders Only Doctor Unassigned, [place] [facility] 1.2.840.114 350.1.13.10 4.2.7.2.686 [id number] 2019-11-08 14:15:00 2019-11-08 14:15:00 Outpatient R [facility] [id number] [facility] 2019-10-15 13:15:00 2019-10-15 13:15:00 Outpatient R [facility] [id number] [facility] 2019-08-12 13:15:00 2019-08-12 23:59:00 Hospital Encounter Shelby Gorman, Remote Device Check At Home - [facility] 1.2.840.114 350.1.13.10 4.2.7.2.686 [id number] [facility] 2019-08-12 13:15:00 2019-08-12 13:15:00 Outpatient R SHELBY GORMAN [facility] [id number] [facility] 2018-11-12 11:45:00 2018-11-12 23:59:00 Hospital Encounter Hany Ventura, Remote Device Check At Home - [facility] 1.2.840.114 350.1.13.10 4.2.7.2.686 [id number] [facility] Notes Date/Time Note Provider Source 2023-06-09 09:22:28 Letter faxed to facility per request at [phone] K TURNER Farzana Harper LVN [facility] 2023-06-09 09:04:21 Images from the original note were not included. Per the [employer] [facility] site, her device model and leads come up as MRI compatible. If the MRI is ordered through [facility] our radiology will also clear compatibility and get the order of how to program the device for the MRI. Thanks Pamela [facility] 2023-06-06 15:20:00 Addended by: MAXINE COBURN on: 06/07/2023 04:56 PM Modules accepted: Orders K TURNER Maxine Coburn MA [facility] 2023-06-05 16:40:32 Lala Barrett is a 73 year old female Brie Blackwood calling from [employer] calling to see if pt can have a mri on her shoulder Due to she has a pacemaker Looking for clearance to make sure her pacemaker is MRI Compatible You can call him on his person number [phone] K TURNER Zoya Monet [facility]
[2024-02-08] MEDS ORDERED: MECLIZINE HCL 12.5 MG TAB ONE (05:59)
[2024-02-08] MEDS ORDERED: ONDANSETRON 4 MG/2 ML VIAL ONE (05:59)
[2024-02-08] MEDS ORDERED: PROMETHAZINE 25 MG TABLET ONE (05:59)
[2024-02-08] MEDS ORDERED: HYDROCODONE/APAP 5/325 MG TAB ONE (06:00)
[2024-02-08] MEDS ORDERED: NA CHLORIDE 0.9% 500 ML ONE ×2 (06:00→09:19)
[2024-02-08 06:34] LABS: Absolute Eosinophils 0.1 K/uL (0-0.5); Absolute Monocytes 0.4 K/uL (0.1-1.3); Absolute Neutrophil 3.6 K/uL (1.8-8.0); Basophils % 0.9 % (0-1.3); Eosinophils % 1.1 % (0-4.4); Hematocrit 36.8 % (36.0-45.0); Hemoglobin 12.3 g/dL (12.0-15.0); Lymphocytes % 19.3 % (15.3-44.8); MCH 27.8 pg (27.0-35.0); MCHC 33.3 g/dL (32.0-36.0); MCV 83.6 fL (80-100); MPV 10.6 fL (7.6-11.3); Monocytes % 7.3 % (3.3-12.3); Neutrophils % 71.4 % (41.7-73.7); Nucleated Red Blood Cells % 0.1 % (0-0); Platelets 167 thou/uL (152-406); Red Cell Distribution Width 13.8 % (12.1-15.2)
[2024-02-08 06:35] LABS: PT Prothrombin Time 11.2 SECONDS (9.4-12.5)
[2024-02-08 07:00] LABS: ALT/SGPT 20 U/L (13-56); Albumin 3.5 g/dL (3.4-5.0); Albumin/Globulin Ratio 0.9 (1.1-1.8); Alkaline Phosphatase 208 U/L (45-117); Anion Gap 10.9 mEq/L (5.0-15.0); BUN Blood Urea Nitrogen 31 mg/dL (7-18); Bicarbonate 26 mEq/L (21-32); Bilirubin Total 0.4 mg/dL (0.2-1.0); Globulin 3.8 g/dL (2.3-3.5); Glomerular Filtration Rate 55 ml/min (=/>90); Glucose Level 349 mg/dL (74-106); Magnesium 1.7 mg/dL (1.6-2.4); NT PRO-BNP 98 pg/mL (<125); Potassium 3.9 mEq/L (3.5-5.1); Protein, Total 7.3 g/dL (6.4-8.2); Sodium Level 134 mEq/L (136-145); Thyroid Stimulating Hormone 0.925 uIU/mL (0.358-3.740); Troponin High Sensitivity 15.3 pg/mL (<58.9)
[2024-02-08 07:01] LABS: AST/SGOT < 10 U/L (15-37); Bilirubin Direct < 0.2 mg/dL (0-0.2); Bilirubin Indirect, Calculated 0.2 mg/dL (0.2-0.8); C-Reactive Protein < 2.90 mg/L (<3.00)
[2024-02-08] MEDS ORDERED: DIAZEPAM 10 MG/2 ML INJ SYRINGE ONE (09:51)
--- NOTE | 2024-02-08 10:45 | RAD REPORT ---
EXAM DESCRIPTION: X-ray single view chest. CLINICAL HISTORY: 73 years Female, CHEST PAIN COMPARISON: Chest x-ray report from 12/01/2022. The image was not available for review. TECHNIQUE: Single portable x-ray view of the chest performed on 02/08/2024 at 5:56 AM FINDINGS: The lungs are well expanded and are clear. There is no evidence of a pneumothorax. The cardiac silhouette is normal in size and configuration. The mediastinal contours are normal. No acute osseous abnormality is identified. No focal soft tissue abnormalities are seen. Lines and tubes: There is a left subclavian bipolar pacemaker. Free air: None identified, IMPRESSION: No evidence of acute intrathoracic disease. Left subclavian bipolar pacemaker present. Electronically signed by: Fina Barrera DO 02/08/2024 06:42 AM CDT RP Due to temporary technical issues with the PACS/Mash[employer] reporting system, reports are being annie d by the in-house radiologist without review as a courtesy to ensure prompt reporting the interpreting radiologist is fully responsible for the content of the report. Transcribed Date/Time: 02/08/2024 10:44 AM
--- NOTE | 2024-02-08 10:52 | EDPHYS ---
Physician Documentation [facility] Name: Lala Barrett Age: 73 yrs Sex: Female : 1950 Arrival Date: 02/08/2024 Time: 04:55 Bed 15 Private MD: ED Physician Irene Campoverde HPI: 02/07 05:04 This 73 yrs old Female presents to ER via Unassigned with complaints of sp4 General Weakness. 05:54 73 -year-old female presents with acute vertigo and generalized weakness associated sp4 with vomiting starting at midnight at home. Patient states she is feeling unwell and has sensation of room spinning around her.. . Patient arrived with EMS reported 1 episode of vomiting during transport.. Historical: - Allergies: 05:10 No Known Allergies; rg5 - PMHx: 05:10 Diabetes - NIDDM; Headaches; Hyperlipidemia; Hypertension; Pacemaker; stroke; TIA; rg5 - PSHx: 05:10 Pacemaker placement; Ligation of fallopian tube; hysterectomy; Appendectomy; cataract; rg5 - Immunization history:: Adult Immunizations up to date. - Infectious Disease History:: Denies. - Social history:: Smoking status: Patient denies any tobacco usage or history of. - Family history:: not pertinent. ROS: 05:54 Constitutional: Positive generalized weakness, positive vertigo, positive vomiting sp4 05:54 All other systems are negative, Exam: 05:54 Constitutional: This is a well developed, well nourished patient who is awake, alert, sp4 and in no acute distress. Head/Face: Normocephalic, atraumatic. Eyes: Pupils equal round and reactive to light, extra-ocular motions intact. Lids and lashes normal. Conjunctiva and sclera are not injected. Cornea within normal limits. Periorbital areas with no swelling, redness, or edema. ENT: Nares patent. No nasal discharge, no septal abnormalities noted. Tympanic membranes are normal and external auditory canals are clear. Oropharynx with no redness, swelling, or masses, exudates, or evidence of obstruction, uvula midline. Mucous membranes moist. Neck: Trachea midline, no thyromegaly or masses palpated, and no cervical lymphadenopathy. Supple, full range of motion without nuchal rigidity, or vertebral point tenderness. Chest/axilla: Normal chest wall appearance and motion. Nontender with no deformity. No lesions are appreciated. Cardiovascular: Regular rate and rhythm with a normal S1 and S2. No gallops, murmurs, or rubs. Normal PMI, no JVD. No pulse deficits. Respiratory: Lungs have equal breath sounds bilaterally, clear to auscultation and percussion. No rales, rhonchi or wheezes noted. No increased work of breathing, no retractions or nasal flaring. Abdomen/GI: Soft, with normal bowel sounds. No distension or tympany. No guarding or rebound. No evidence of tenderness throughout. Back: No spinal tenderness. No costovertebral tenderness. Skin: Warm, dry with normal turgor. Normal color with no rashes, no lesions, and no evidence of cellulitis. MS/ Extremity: Pulses equal, no cyanosis. Neurovascular intact. Full, normal range of motion. Neuro: Awake and alert, GCS 15, oriented to person, place, time, and situation. Cranial nerves II-XII grossly intact. Motor strength 5/5 in all extremities. Sensory grossly intact. Psych: Awake, alert, with orientation to person, place and time. Behavior, mood, and affect are within normal limits 05:54 ECG was reviewed by the Attending Physician. EKG at 0 515 electronic atrial pacemaker rate 84 Vital Signs: 05:00 BP 160 / 86; Pulse 85; Resp 17; Temp 97.8(T); Pulse Ox 96% on R/A; Weight 67.13 kg; rg5 Height 5 ft. 2 in. ; 05:10 BP 160 / 86; Pulse 85; Resp 17; Temp 97.8; Pulse Ox 96% ; Pain 5/10; rg5 05:46 BP 155 / 74; Pulse 83; Resp 17; Pulse Ox 97% on R/A; rg5 06:40 BP 145 / 66; Pulse 83; Resp 17; Pulse Ox 94% on R/A; rg5 07:15 BP 138 / 66; Pulse 80; Resp 18; Pulse Ox 94% ; db 08:00 BP 154 / 74; Pulse 80; Resp 16; Pulse Ox 96% on R/A; db 09:25 BP 129 / 71 Supine; Pulse 76; db 09:30 BP 138 / 77 Sitting; Pulse 82; db 09:35 BP 135 / 94 Standing; Pulse 92; db 11:07 BP 113 / 61; Pulse 71; Pulse Ox 94% on R/A; MAP 76 mmHg; tm6 05:00 Body Mass Index 27.07 (67.13 kg, 157.48 cm) rg5 05:10 Pain Scale: Adult rg5 09:35 UNABLE TO STAND WITHOUT ASSISTANCE. db NIH Stroke Scale Scores: 06:14 NIHSS Score: 0 sp4 Ihsan Coma Score: 05:16 Eye Response: spontaneous(4). Motor Response: obeys commands(6). Verbal Response: rg5 oriented(5). Total: 15. 05:54 Eye Response: spontaneous(4). Motor Response: obeys commands(6). Verbal Response: sp4 oriented(5). Total: 15. MDM: 05:06 Medical Screening Exam initiated sp4 07:18 Differential Diagnosis altered mental status, sepsis, flu. Data reviewed: vital signs, sp4 nurses notes. Transition of care: After a detail discussion of the patient's case, care is transferred to Irene Campoverde MD. 10:50 Management of patient was discussed with the following: Hospitalist: Dr. Paige. I sd2 considered the following discharge prescriptions or medication management in the emergency department Medications were administered in the Emergency Department. See MAR. Counseling: I had a detailed discussion with the patient and/or guardian regarding the historical points, exam findings, and any diagnostic results supporting the discharge/admit diagnosis, lab results, radiology results, the need for further work-up and treatment in the hospital. ED course: Pt with improved LA. Orthostatics and CT negative. Still unable to ambulate after treatment. Will admit at this time. Hospitalist aware. . 02/07 05:06 Order name: Basic Metabolic Panel; Complete Time: 07: sp4 02/07 05:06 Order name: CBC with Diff; Complete Time: 07: sp4 02/07 05:06 Order name: LFT's; Complete Time: 07: sp4 02/07 05:06 Order name: Magnesium; Complete Time: 07: sp4 02/07 05:06 Order name: NT PRO-BNP; Complete Time: 07: sp4 02/07 05:06 Order name: PT-INR; Complete Time: 07: sp4 02/07 05:06 Order name: Troponin HS; Complete Time: 07: sp4 02/07 05:06 Order name: TSH; Complete Time: 07:13 sp4 02/07 05:06 Order name: T4 Free; Complete Time: 07:13 sp4 02/07 05:06 Order name: Blood Culture Adult (2) sp4 02/07 05:06 Order name: CRP; Complete Time: 07:13 sp4 02/07 05:06 Order name: Lactate w/ 2H reflex if indic.; Complete Time: 07:13 sp4 02/07 09:00 Order name: Ghost Lactate-NO COLLECT Timer; Complete Time: 09:08 EDMS 02/07 10:38 Order name: Lactate Sepsis 2 HR Follow-up; Complete Time: 10:42 EDMS 02/07 12:59 Order name: Comprehensive Metabolic Panel EDMS 02/07 12:59 Order name: Comprehensive Metabolic Panel EDMS 02/07 12:59 Order name: Comprehensive Metabolic Panel EDMS 02/07 12:59 Order name: Lipid Profile EDMS 02/07 12:59 Order name: Lipid Profile EDMS 02/07 12:59 Order name: Magnesium EDMS 02/07 12:59 Order name: Magnesium EDMS 02/07 12:59 Order name: CBC with Automated Diff EDMS 02/07 12:59 Order name: CBC with Automated Diff EDMS 02/07 12:59 Order name: Magnesium EDMS 02/07 12:59 Order name: CBC with Automated Diff EDMS 02/07 12:59 Order name: Urinalysis w/ reflexes EDMS 02/07 13:01 Order name: Cortisol EDMS 02/07 13:01 Order name: Cortisol EDMS 02/07 13:01 Order name: Urine Culture EDMS 02/07 06:01 Order name: CT Head Brain wo Cont; Complete Time: 12:30 sp4 02/07 06:02 Order name: Chest Single View; Complete Time: 12:30 EDMS 02/07 12:59 Order name: Carotid Artery Bilateral EDMS 02/07 05:06 Order name: Cardiac monitoring; Complete Time: 05:28 sp4 02/07 05:06 Order name: EKG - Nurse/Tech; Complete Time: 05:19 sp4 02/07 05:06 Order name: IV Saline Lock; Complete Time: 06:16 sp4 02/07 05:06 Order name: Labs collected and sent; Complete Time: 06:16 sp4 02/07 05:06 Order name: O2 Per Protocol; Complete Time: 05:28 sp4 02/07 05:06 Order name: O2 Sat Monitoring; Complete Time: 05:28 sp4 02/07 09:05 Order name: Orthostatics; Complete Time: 09:49 sd2 02/07 09:55 Order name: Labs - recollect needed: romo top; Complete Time: 09:58 bc6 EC:54 Rate is 84 beats/min. Rhythm is regular, Paced. Clinical impression: No evidence of sp4 ischemia. Interpreted by me. Reviewed by me. Administered Medications: 06:15 Drug: Promethazine PO 25 mg PO once Route: PO; rg5 11:19 Follow up: Response: No adverse reaction tm6 06:15 Drug: HYDROcodone-acetaminophen PO 5 mg-325 mg 1 tabs PO once Route: PO; rg5 11:19 Follow up: Response: No adverse reaction tm6 06:16 Drug: Ondansetron IVP 4 mg IVP once; over 2 minutes Route: IVP; Site: right hand; rg5 11:19 Follow up: Response: No adverse reaction tm6 06:16 Drug: Meclizine PO 25 mg PO once Route: PO; rg5 11:19 Follow up: Response: No adverse reaction tm6 06:16 Drug: NS 0.9% IV 500 ml 500 ml IV at 1 bolus once; to be given as a bolus over 30 rg5 minutes Volume: 500 ml; Route: IV; Rate: 1 bolus; Site: right hand; 07:35 Follow up: Response: No adverse reaction; IV Status: Completed infusion; IV Intake: db 500ml 09:37 Drug: NS 0.9% IV 500 ml IV at bolus once; to be given as a bolus over 30 minutes Route: db IV; Rate: bolus; Site: right forearm; 11:19 Follow up: Response: No adverse reaction; IV Status: Completed infusion; IV Intake: tm6 500ml 09:52 Drug: Diazepam IVP 1 mg IVP once Route: IVP; Site: right forearm; db 11:19 Follow up: Response: No adverse reaction tm6 Disposition Summary: 02/08/24 10:51 Hospitalization Ordered Notes: Hospitalization Status: Observation sd2 Provider: Tanya Paige Location: Telemetry/MedSurg (observation) sd2 Condition: Stable sd2 Problem: new sd2 Symptoms: are unchanged sd2 Bed/Room Type: Standard sd2 Room Assignment: (02/08/24 13:17) bc6 Diagnosis - Dizziness and giddiness sd2 - Inability to ambulate sd2 - Vertigo sd2 Forms: - Medication Reconciliation Form sd2 - SBAR form sd2 - Leadership Thank You Letter sd2 NIH Stroke Scale - NIH Stroke Score Date: 02/08/2024 Time: 06:14 Total Score = 0 10. Dysarthria (speech clarity - read or repeat words) - 0(Normal) 11. Extinction and Inattention (visual/tactile/auditory/spatial/personal) - 0(No abnormality) 1a. Level of Consciousness (LOC) - 0(Alert) 1b. Level of Consciousness (LOC) (Month \T\ Age) - 0(Both) 1c. LOC Commands (Open \T\ Closes Eyes/Associate Merchandiser) - 0(Both) 2. Best Gaze (Lateral Gaze Paresis) - 0(Normal) 3. Visual Field Loss - 0(No visual loss) 4. Facial Palsy - 0(Normal) 5a. Left Arm: Motor (10-second hold) - 0(No drift) 5b. Right Arm: Motor (10-second hold) - 0(No drift) 6a. Left Leg: Motor (5-second hold - always test supine) - 0(No drift) 6b. Right Leg: Motor (5-second hold - always test supine) - 0(No drift) 7. Limb Ataxia (finger/nose \T\ heel/monroy - test with eyes open) - 0(Absent) 8. Sensory Loss (pinprick arms/legs/face) - 0(Normal) 9. Best Language: Aphasia (description/naming/reading) - 0(No aphasia) Initials: sp4 Signatures: Dispatcher [employer] EDIrene Atkinson MD MD sd2 Toyin Sanchez RN RN db Merced Galvez bc6 José Miguel Jennings MD MD sp4 Abhi Rice RN RN rg5 Chandu Mo RN tm6 Corrections: (The following items were deleted from the chart) 05:53 05:53 Chest Single View+RAD.RAD.BRZ ordered. EDMS EDMS 05:53 05:53 THYROID STIMULAT HORMONE+C.LAB.BRZ ordered. EDMS EDMS 05:53 05:53 T4 FREE+C.LAB.BRZ ordered. EDMS EDMS 05:53 05:53 BLOOD CULTURE*+BA.LAB.BRZ ordered. EDMS EDMS 05:53 05:53 C-REACTIVE PROTEIN+C.LAB.BRZ ordered. EDMS EDMS 05:53 05:53 LACTATE+C.LAB.BRZ ordered. EDMS EDMS 13:17 10:51 sd2 bc6
--- NOTE | 2024-02-08 10:52 | ER ---
Nurse's Notes [facility] Name: Lala Barrett Age: 73 yrs Sex: Female : 1950 Arrival Date: 02/08/2024 Time: 04:55 Bed 15 Private MD: Diagnosis: Dizziness and giddiness;Inability to ambulate;Vertigo Presentation: 02/07 05:00 Chief complaint: EMS states: family called because she is very weak, feels nauseated rg5 since 1899 last night. Also complaints of headache and light headedness. 05:00 Coronavirus screen: Client denies travel out of the [place] in the last 14 days. Ebola rg5 Screen: Patient negative for fever greater than or equal to 101.5 degrees Fahrenheit, and additional compatible Ebola Virus Disease symptoms. Initial Sepsis Screen: Does the patient meet any 2 criteria? No. Patient's initial sepsis screen is negative. Does the patient have a suspected source of infection? No. Patient's initial sepsis screen is negative. Risk Assessment: Do you want to hurt yourself or someone else? Patient reports no desire to harm self or others. Onset of symptoms was February 07, 2024. Care prior to arrival: Glucose check: 346. 05:00 Method Of Arrival: EMS: [facility] rg5 05:00 Acuity: ADOLPH 3 rg5 Triage Assessment: 05:10 General: Appears in no apparent distress. Behavior is calm, cooperative, appropriate rg5 for age. Pain: Complains of pain in face Pain currently is 5 out of 10 on a pain scale. Quality of pain is described as aching, Pain began 4 hours ago. Is intermittent. EENT: No deficits noted. Neuro: Level of Consciousness is awake, alert, obeys commands, Oriented to person, place, time, situation, Burial Vault Maker are equal bilaterally Speech is normal, Facial symmetry appears normal, Reports dizziness, headache weakness since 1899 last night. Cardiovascular: Denies chest pain, Patient's skin is warm and dry. Respiratory: Airway is patent Trachea midline Respiratory effort is even, unlabored, Respiratory pattern is regular, symmetrical. GI: Abdomen is round non-distended, Bowel sounds present X 4 quads. Abd is soft and non tender Reports nausea. : No signs and/or symptoms were reported regarding the genitourinary system. Derm: Skin is intact, Skin is dry, Skin is normal, Skin temperature is warm. Musculoskeletal: Circulation, motion, and sensation intact. Range of motion: intact in all extremities. Historical: - Allergies: 05:10 No Known Allergies; rg5 - PMHx: 05:10 Diabetes - NIDDM; Headaches; Hyperlipidemia; Hypertension; Pacemaker; stroke; TIA; rg5 - PSHx: 05:10 Pacemaker placement; Ligation of fallopian tube; hysterectomy; Appendectomy; cataract; rg5 - Immunization history:: Adult Immunizations up to date. - Infectious Disease History:: Denies. - Social history:: Smoking status: Patient denies any tobacco usage or history of. - Family history:: not pertinent. Screenin:16 [facility] ED Fall Risk Assessment (Adult) History of falling in the last 3 months, rg5 including since admission Yes- single mechanical fall (1 pt) Confusion or Disorientation No (0 pts) Intoxicated or Sedated No (0 pts) Impaired Gait No (0 pts) Mobility Assist Device Used No (0 pt) Altered Elimination No (0 pt) Score/Fall Risk Level 0 - 2 = Low Risk Oriented to surroundings, Maintained a safe environment, Educated pt \T\ family on fall prevention, incl call for assistance when getting out of bed, Hourly rounding (assess needs \T\ fall precautionary measures) done. Abuse screen: Denies threats or abuse. Nutritional screening: No deficits noted. Tuberculosis screening: No symptoms or risk factors identified. Assessment: 05:16 Reassessment: see triage assessment. rg5 06:16 Reassessment: No changes from previously documented assessment. Patient and/or family rg5 updated on plan of care and expected duration. Pain level reassessed. Patient is alert, oriented x 3, equal unlabored respirations, skin warm/dry/pink. 07:15 Reassessment: Patient appears in no apparent distress at this time. Patient and/or db family updated on plan of care and expected duration. Pain level reassessed. Patient is alert, oriented x 3, equal unlabored respirations, skin warm/dry/pink. General: Appears in no apparent distress. comfortable, Behavior is calm, cooperative. Neuro: Level of Consciousness is awake, alert, obeys commands, Oriented to person, place, time, situation. Respiratory: Airway is patent Respiratory effort is even, unlabored, Respiratory pattern is regular, symmetrical. 11:18 Reassessment: Patient appears in no apparent distress at this time. Patient and/or tm6 family updated on plan of care and expected duration. Pain level reassessed. Patient is alert, oriented x 3, equal unlabored respirations, skin warm/dry/pink. continues to feel dizzy. Vital Signs: 05:00 BP 160 / 86; Pulse 85; Resp 17; Temp 97.8(T); Pulse Ox 96% on R/A; Weight 67.13 kg; rg5 Height 5 ft. 2 in. ; 05:10 BP 160 / 86; Pulse 85; Resp 17; Temp 97.8; Pulse Ox 96% ; Pain 5/10; rg5 05:46 BP 155 / 74; Pulse 83; Resp 17; Pulse Ox 97% on R/A; rg5 06:40 BP 145 / 66; Pulse 83; Resp 17; Pulse Ox 94% on R/A; rg5 07:15 BP 138 / 66; Pulse 80; Resp 18; Pulse Ox 94% ; db 08:00 BP 154 / 74; Pulse 80; Resp 16; Pulse Ox 96% on R/A; db 09:25 BP 129 / 71 Supine; Pulse 76; db 09:30 BP 138 / 77 Sitting; Pulse 82; db 09:35 BP 135 / 94 Standing; Pulse 92; db 11:07 BP 113 / 61; Pulse 71; Pulse Ox 94% on R/A; MAP 76 mmHg; tm6 05:00 Body Mass Index 27.07 (67.13 kg, 157.48 cm) rg5 05:10 Pain Scale: Adult rg5 09:35 UNABLE TO STAND WITHOUT ASSISTANCE. db [place] Coma Score: 05:16 Eye Response: spontaneous(4). Motor Response: obeys commands(6). Verbal Response: rg5 oriented(5). Total: 15. 05:54 Eye Response: spontaneous(4). Motor Response: obeys commands(6). Verbal Response: sp4 oriented(5). Total: 15. NIH Stroke Scale Scores: 06:14 NIHSS Score: 0 sp4 ED Course: 04:56 Patient arrived in ED. jj6 05:02 Abhi Rice RN is Primary Nurse. rg5 05:04 José Miguel Jennings MD is Attending Physician. sp4 05:10 Triage completed. rg5 05:10 Arm band placed on. EKG completed in triage. Results shown to MD. rg5 05:16 Patient has correct armband on for positive identification. Bed in low position. Call rg5 light in reach. Side rails up X 1. Adult w/ patient. Door closed. Noise minimized. Warm blanket given. Verbal reassurance given. 05:16 No provider procedures requiring assistance completed. rg5 05:19 EKG done, by ED staff, reviewed by José Miguel Jennings MD. oe 05:30 Missed attempt(s): 20 gauge in right forearm. rg5 05:44 Missed attempt(s): 22 gauge in left antecubital area. rg5 05:50 Missed attempt(s): 22 gauge in right wrist. rg5 06:00 First set of blood cultures drawn by me. oe 06:02 Chest Single View In Process Unspecified. EDMS 06:15 Inserted saline lock: 22 gauge in right hand, using aseptic technique. Blood collected. oe Flushed with 10 mL NS. 06:15 Second set of blood cultures drawn by me. oe 06:21 Patient moved to radiology via wheelchair. rg5 06:28 CT Head Brain wo Cont In Process Unspecified. EDMS 09:04 Attending Physician role handed off by José Miguel Jennings MD sd2 09:04 Irene Campoverde MD is Attending Physician. sd2 10:12 by ri, sent to lab. db 10:51 Tanya Paige MD is Hospitalizing Provider. sd2 11:07 Chandu Mo, RN is Primary Nurse. tm6 11:18 Provided Education on: need for admit. Assisted to bathroom. tm6 11:23 1123 CM met with Ms. Barrett at the bedside in the ED exam room. Patient identified by ane name and . Demographic sheet confirmed. Patient states she lives with her daughter Kassi in a single story home. She reports that prior to admission, she performs ADLs independently. No DME, no HH, no home oxygen or other medical services at this time. No MPOA in place and patient states her PCP is KILEY Palma. Her preferred plan is to return home upon discharge and she states her daughter Kassi will be her transportation home. CM team will continue to follow and coordinate care during this hospital stay. 13:24 Carotid Artery Bilateral In Process Unspecified. EDMS 14:24 Patient admitted, IV remains in place. tm6 Administered Medications: 06:15 Drug: Promethazine PO 25 mg PO once Route: PO; rg5 11:19 Follow up: Response: No adverse reaction tm6 06:15 Drug: HYDROcodone-acetaminophen PO 5 mg-325 mg 1 tabs PO once Route: PO; rg5 11:19 Follow up: Response: No adverse reaction tm6 06:16 Drug: Ondansetron IVP 4 mg IVP once; over 2 minutes Route: IVP; Site: right hand; rg5 11:19 Follow up: Response: No adverse reaction tm6 06:16 Drug: Meclizine PO 25 mg PO once Route: PO; rg5 11:19 Follow up: Response: No adverse reaction tm6 06:16 Drug: NS 0.9% IV 500 ml 500 ml IV at 1 bolus once; to be given as a bolus over 30 rg5 minutes Volume: 500 ml; Route: IV; Rate: 1 bolus; Site: right hand; 07:35 Follow up: Response: No adverse reaction; IV Status: Completed infusion; IV Intake: db 500ml 09:37 Drug: NS 0.9% IV 500 ml IV at bolus once; to be given as a bolus over 30 minutes Route: db IV; Rate: bolus; Site: right forearm; 11:19 Follow up: Response: No adverse reaction; IV Status: Completed infusion; IV Intake: tm6 500ml 09:52 Drug: Diazepam IVP 1 mg IVP once Route: IVP; Site: right forearm; db 11:19 Follow up: Response: No adverse reaction tm6 Medication: 05:16 VIS not applicable for this client. rg5 Intake: 07:35 IV: 500ml; Total: 500ml. db 11:19 IV: 500ml; Total: 1000ml. tm6 Outcome: 10:51 Decision to Hospitalize by Provider. sd2 14:24 Admitted to Med/surg accompanied by tech, room 202, with chart, tm6 14:24 Condition: stable 14:24 Instructed on the need for admit, 14:24 Patient left the ED. tm6 NIH Stroke Scale - NIH Stroke Score Date: 02/08/2024 Time: 06:14 Total Score = 0 10. Dysarthria (speech clarity - read or repeat words) - 0(Normal) 11. Extinction and Inattention (visual/tactile/auditory/spatial/personal) - 0(No abnormality) 1a. Level of Consciousness (LOC) - 0(Alert) 1b. Level of Consciousness (LOC) (Month \T\ Age) - 0(Both) 1c. LOC Commands (Open \T\ Closes Eyes/Financial Planner) - 0(Both) 2. Best Gaze (Lateral Gaze Paresis) - 0(Normal) 3. Visual Field Loss - 0(No visual loss) 4. Facial Palsy - 0(Normal) 5a. Left Arm: Motor (10-second hold) - 0(No drift) 5b. Right Arm: Motor (10-second hold) - 0(No drift) 6a. Left Leg: Motor (5-second hold - always test supine) - 0(No drift) 6b. Right Leg: Motor (5-second hold - always test supine) - 0(No drift) 7. Limb Ataxia (finger/nose \T\ heel/monroy - test with eyes open) - 0(Absent) 8. Sensory Loss (pinprick arms/legs/face) - 0(Normal) 9. Best Language: Aphasia (description/naming/reading) - 0(No aphasia) Initials: sp4 Signatures: Dispatcher [employer] EDMS Carlos Pearson Jennifer jj6 Irene Campoverde MD MD sd2 Toyin Sanchez, José Miguel Tabares RN, MD MD sp4 Chandu Mo RN RN tm6 Abhi Rice RN RN rg5 Brittany Avelar RN RN ane Corrections: (The following items were deleted from the chart) 06:22 05:44 Missed attempt(s): 22 gauge in left forearm. rg5 rg5
--- NOTE | 2024-02-08 10:54 | RAD REPORT ---
EXAM: CT head without IV contrast CLINICAL DATA: 73 years Female DIZZINESS TECHNICAL DATA: Multiple axial CT images of the brain were performed followed by sagittal and coronal reconstructed i mages. The CT study is performed according to ALARA (as low as reasonably achievable) or ALARA/IMAGE GENTLY, with automatic adjustment of mA and/or kV according to patient size. Performed on: 02/08/2024 at 6:31 AM Comparisons: Head CT performed on 02/23/2020 FINDINGS: Brain: There is no evidence of mass, acute mass effect or midline shift. There are no acute extra-axi al fluid collections. There is no evidence of acute intracranial hemorrhage. The cerebral sulci and ventricles are prominent consistent with age-related volume loss. There are scattered areas of de creased attenuation within the subcortical and periventricular white matter most likely due to mild chronic microangiopathy. There are atherosclerotic calcifications along the cavernous carotid arterie s and distal vertebral arteries. Paranasal Sinuses and Mastoids: There is no significant mucosal thickening of the paranasal sinuses. The mastoid air cells are clear. Orbits: The orbital contents are grossly unremarkable. Bones: No acute osseous abnormalities are identified. Soft Tissues: No focal soft tissue abnormalities are identified. IMPRESSION: 1. There is no evidence of acute intracranial pathology. 2. Mild age-related cerebral volume loss with findings compatible with chronic microangiopathy. Electronically signed by: Fina Barrera DO 02/08/2024 06:46 AM CDT Due to temporary technical issues with the PACS/C2FO reporting system, reports are being annie d by the in-house radiologist without review as a courtesy to ensure prompt reporting the interpreting radiologist is fully responsible for the content of the report. Transcribed Date/Time: 02/08/2024 10:53 AM
--- NOTE | 2024-02-08 12:13 | EKG ---
Test Date: 2024-02-08 Test Time: 05:15:48 Music Video Producer: OSWALDO MEASUREMENT RESULTS: Intervals: Rate: 84 ID: [id number] QRSD: 80 QT: 366 QTc: 432 [place]: P: 39 ID: [id number] QRS: 50 T: 41 INTERPRETIVE STATEMENTS: Electronic atrial pacemaker Nonspecific T wave abnormality Abnormal ECG Compared to ECG 12/01/2022 06:07:55 T-wave abnormality now present Sinus tachycardia no longer present Electronically Signed On 02-08-24 12:11:55 CDT by Renzo Narayan
--- NOTE | 2024-02-08 12:51 | P.HP ---
Certification for Inpatient Patient admitted to: Inpatient With expected LOS: >2 Midnights <Nicole Galan - Last Filed: 02/08/24 14:48> Patient History Date of Service: 02/08/24 Reason for admission: Dizziness, dehydration, DM with hyperglycemia History of Present Illness: Ms. Barrett is a 73-year-old female with a past medical history of syncope but is now status post pacemaker which resolved syncopal events, hypertension, hyperlipidemia, and type 2 diabetes. Patient was in her normal state of health when she laid down for bed last evening. She states she got a little bit dizzy at that time. Getting up to void has been difficult as when she rises she becomes dizzy. She did get nauseated and vomited x 1. She states she has never had vertigo. CT head in the emergency department is negative for acute findings, unable to obtain MRI secondary to patient's pace maker. Chest x-ray shows no evidence of acute intrathoracic disease. Left subclavian bipolar pacemaker present. Laboratory evaluation in the emergency department reveals a normal CBC, sodium 134, potassium 3.9, glucose 349, BUN 31, creatinine 1.07 with a GFR of 55, no transaminitis, mag 1.7, no overload findings, troponin 15.3, TSH 0.925, C-reactive protein negative, lactate 2.7 and then repeat 2.0. We will admit her for observation for neurochecks and monitoring. Home medications list reviewed: Yes - Past Medical/Surgical History Has patient received pneumonia vaccine in the past: Yes Diabetic: Yes -: hyperlipidemia -: hypertention -: NIIDM since age 39 -: Mild stroke 01/27 -: Staph Left arm 2010 -: TIA 08/2015 -: "tissue that was damaged in heart" -: headaches -: alfredo -: appendectomy -: hysterectomy -: tubal ligation -: antoino cataract sx -: pacemaker -: staph infection to right arm -: carpal tunnel Psychosocial/ Personal History: Lives with daughter and her child. Son at bedside. Patient denies harmful environment. - Family History Mother -: Diabetes Father -: Diabetes, Stroke - Social History Smoking Status: Never smoker Alcohol use: No CD- Drugs: No Caffeine use: Yes Place of Residence: Home <Nicole Galan - Last Filed: 02/08/24 14:48> Date of Service: 02/08/24 <Tanya Paige Bob - Last Filed: 02/08/24 18:34> Allergies No Known Allergies Allergy (Verified 09/15/17 09:38) Home Medications: Atorvastatin Calcium [Lipitor*] 20 mg PO DAILY 08/26/13 Losartan Potassium [Cozaar*] 1 tab PO DAILY 08/26/13 Metformin HCl [Glucophage] 1,000 mg PO BIDWM 09/03/15 Clopidogrel Bisulfate [Plavix*] 75 mg PO DAILY #30 tablet 09/04/15 glipiZIDE [Glipizide ER] 10 mg PO BID 02/23/16 Ascorbic Acid [Vitamin C] 250 mg PO DAILY 09/15/17 Aspirin [Adult Aspirin Regimen] 81 mg PO DAILY 09/15/17 Latanoprost [Xalatan] 1 drop OP BEDTIME 09/15/17 Pregabalin [Lyrica*] 75 mg PO BID 09/15/17 Cholecalciferol (Vitamin D3) [Vitamin D3] 1 tab PO DAILY 02/27/20 Cyanocobalamin (Vitamin B-12) [Vitamin B-12] 1 tab PO DAILY 02/27/20 Dexlansoprazole [Dexilant] 60 mg PO BREAKFAST 02/27/20 hydroCHLOROthiazide [Hydrochlorothiazide*] 12.5 tab PO DAILY 02/27/20 levoFLOXacin [Levaquin] 500 mg PO DAILY #7 tab 12/03/22 metroNIDAZOLE [Metronidazole] 500 mg PO TID #15 tab 12/03/22 Review of Systems 10-point ROS is otherwise unremarkable General: Weakness, Malaise Eyes: Unremarkable (Needs to keep closed otherwise she spends) ENT: Unremarkable Respiratory: Unremarkable Cardiovascular: Unremarkable Gastrointestinal: Nausea, Vomiting Genitourinary: Unremarkable Musculoskeletal: Unremarkable Integumentary: Unremarkable Neurological: Weakness, Other (Dizziness), As per HPI Lymphatics: Unremarkable <Nicole Galan - Last Filed: 02/08/24 14:48> Physical Examination - Physical Exam General: Alert, In no apparent distress, Oriented x3, Cooperative, Other (Keep his eyes closed, NIHSS negative, no nystagmus) HEENT: Atraumatic, Normocephalic Neck: Supple Respiratory: Clear to auscultation bilaterally Cardiovascular: No edema, Normal S1 S2 Capillary refill: <2 Seconds Gastrointestinal: Normal bowel sounds, Soft and benign Musculoskeletal: No clubbing Integumentary: No rashes Neurological: Normal speech, Normal tone, Normal affect Lymphatics: No axilla or inguinal lymphadenopathy External genitalia: Deferred Rectal: Deferred - Studies Laboratory Data (last 24 hrs) 02/08/24 02/08/24 02/08/24 06:10 06:10 06:10 WBC 5.00 Hgb 12.3 Hct 36.8 Plt Count 167 PT 11.2 INR 1.00 Sodium 134 L Potassium 3.9 BUN 31 H Creatinine 1.07 H Glucose 349 H Magnesium 1.7 Total Bilirubin 0.4 AST < 10 L ALT 20 Alkaline Phosphatase 208 H <Nicole Galan - Last Filed: 02/08/24 14:48> - Studies Laboratory Data (last 24 hrs) 02/08/24 02/08/24 02/08/24 06:10 06:10 06:10 WBC 5.00 Hgb 12.3 Hct 36.8 Plt Count 167 PT 11.2 INR 1.00 Sodium 134 L Potassium 3.9 BUN 31 H Creatinine 1.07 H Glucose 349 H Magnesium 1.7 Total Bilirubin 0.4 AST < 10 L ALT 20 Alkaline Phosphatase 208 H <Tanya Paige C - Last Filed: 02/08/24 18:34> Assessment and Plan - Plan Gentle IV hydration UA/UC IV antibiotics only if blood culture or UA/UC positive Follow cultures Monitor labs and replenish as needed Unable to obtain MRI of the brain secondary to pacemaker TSH (norm) and cortisol studies in am Fall precautions Physical therapy evaluation once mentation is improved Carotid Doppler antiplatelet therapy and statin therapy Neurochecks every 4 hours DVT/GI prophylaxis - Advance Directives Does patient have a Living Will: No Does patient have a Durable POA for Healthcare: No <Nicole Galan - Last Filed: 02/08/24 14:48> - Plan Pt seen and examined. I agree with the note by the REGIONAL FORESTER. Pt is a 73yo female with past medical history of syncope (status post pacemaker which resolved syncopal events), hypertension, hyperlipidemia, and type 2 diabetes who presents with dizziness and vertigo. It felt like the room was spining around her. On admission, CT head is unremarkable. Lab studies show wbc 5, Hgb 12.1, K 3.9, NA 134, Cr 1.07, Lactate 2.7 <- 2.0, and glucose 349. Unable to do MRI brain due to pacemaker. Chest x-ray shows no evidence of acute intrathoracic disease. At bedside, pt is in NAD. A/P: Vertigo: Unknown etiology. Will f/u orthostatic vital sign. CT head is unremarkable. Unable to do MRI brain due to presence of pacemaker. Will add meclizine. Will consult PT for Kyrie maneuver. Htn: Will continue home med HLD: statin DM II: Continue accuchek, SSI, lantus 20u qhs, and ADA diet. DVT ppx: lovenox Code: full <Tanya Paige - Last Filed: 02/08/24 18:34>
[2024-02-08] MEDS: NA CHLORIDE 0.9% 1,000 ML IV SCH (13:00)
[2024-02-08] MEDS ORDERED: SODIUM CHLORIDE 0.9% 10ML INJ IV PRN (13:16)
[2024-02-08 15:03] VITALS: BMI 26.9
--- NOTE | 2024-02-08 15:33 | RAD REPORT ---
EXAM: US Carotid Artery Bilateral CLINICAL INDICATION: dizziness TECHNIQUE: Real-time grayscale, color flow, and spectral Doppler sonographic images were obtained of the extracranial carotid system using a linear transducer. Arterial peak systolic velocities are recorded as follows. COMPARISON: No prior exam. FINDINGS: RIGHT: Common carotid artery: 78 cm/s Internal carotid artery: 103 cm/s Right ICA/CCA ratio: 1.32 Plaque: Mild smooth mixed echogenicity partially calcified plaque External carotid artery: 123 cm/s Vertebral artery: Antegrade LEFT: Common carotid artery: 88 cm/s Internal carotid artery: 137 cm/s Left ICA/CCA ratio: 1.55 Plaque: Minimal smooth noncalcified plaque External carotid artery: 96 cm/s Vertebral artery: Antegrade IMPRESSION: No hemodynamically significant stenosis (greater than 50%) within the extracranial right internal car otid artery. Mild harshly calcified plaque at the bulb. Elevated velocities along the left ICA, with minimal plaque at the bulb, which could relate to tortuo sity, or 50-69% stenosis along the course of the vessel. The degrees of stenosis, if any, are quantified according to the consensus statement of the Society o f Radiologists in Ultrasound (SRUS). Please refer to Jose Enrique E, Parvez C, Franki G et al. Carotid Artery Stenosis: Camacho-Scale and Doppler US Diagnosis--Society of Radiologists in Ultrasound Consensus Conference. Radiology. 2003;229(2):340-6. doi:10.1148/radiol.[id number]
[2024-02-08] MEDS: INSULIN REGULAR (HUMAN) 100 UNIT/ML SQ SCH (16:15)
[2024-02-08] MEDS ORDERED: MECLIZINE HCL 12.5 MG TAB PO PRN (18:31)
[2024-02-08] MEDS: ACETAMINOPHEN 500 MG TAB PO PRN (20:25)
[2024-02-08] MEDS: ATORVASTATIN 20 MG TAB PO SCH (20:25)
[2024-02-09 07:12] LABS: Absolute Eosinophils 0.1 K/uL (0-0.5); Absolute Lymphocytes (CBC) 1.6 K/uL (0.7-4.9); Absolute Monocytes 0.4 K/uL (0.1-1.3); Absolute Neutrophil 2.7 K/uL (1.8-8.0); Basophils % 0.7 % (0-1.3); Hemoglobin 11.9 g/dL (12.0-15.0); Lymphocytes % 33.9 % (15.3-44.8); MCH 28.6 pg (27.0-35.0); MCHC 34.1 g/dL (32.0-36.0); MPV 10.1 fL (7.6-11.3); Monocytes % 8.3 % (3.3-12.3); Neutrophils % 55.1 % (41.7-73.7); Nucleated Red Blood Cells % 0.1 % (0-0); Platelets 161 thou/uL (152-406); RBC Red Blood Cell Count 4.16 M/uL (3.86-4.86)
[2024-02-09 07:23] LABS: Specific Gravity 1.026 (1.005-1.030); Sqamous Epithelial <5 /HPF (None Seen); Transitional Epithelial <5 /HPF (None Seen); Urine Bacteria None Seen /HPF (<20); Urine Bilirubin NEGATIVE (Negative); Urine Blood Negative (Negative); Urine Clarity Extremely Turbid (Clear); Urine Color Light-Yellow (Yellow); Urine Culture Reflex Order REFLEXED; Urine Glucose 4+ (Over) (Negative); Urine Ketones NEGATIVE (Negative); Urine Microscopic Reflex YN ORDER UMIC; Urine Mucus Slight /HPF (None Seen); Urine Nitrite NEGATIVE (Negative); Urine Protein NEGATIVE (Negative); Urine RBC <5 /HPF (None Seen); Urine Urobilinogen Normal (Normal); Urine WBC 20-50 /HPF (<5)
[2024-02-09 07:33] LABS: ALT/SGPT 16 U/L (13-56); Albumin/Globulin Ratio 0.9 (1.1-1.8); Alkaline Phosphatase 140 U/L (45-117); Anion Gap 7.4 mEq/L (5.0-15.0); BUN Blood Urea Nitrogen 26 mg/dL (7-18); Bicarbonate 29 mEq/L (21-32); Bilirubin Total 0.4 mg/dL (0.2-1.0); Globulin 3.4 g/dL (2.3-3.5); Glomerular Filtration Rate 65 ml/min (=/>90); Glucose Level 189 mg/dL (74-106); HDL Cholesterol 43 mg/dL (40-60); LDL Cholesterol, Calculated 54 mg/dL (<130); LDL Cholesterol,Calc NonReport 54; Magnesium 1.7 mg/dL (1.6-2.4); Potassium 4.4 mEq/L (3.5-5.1); Protein, Total 6.4 g/dL (6.4-8.2); Sodium Level 142 mEq/L (136-145)
[2024-02-09 07:35] LABS: AST/SGOT < 10 U/L (15-37)
[2024-02-09] MEDS: MAGNESIUM SULFATE 1 gm IVPB 1 GM/100 ML BAG IV ONE (08:30)
[2024-02-09] MEDS: PANTOPRAZOLE 40 MG INJ IVP SCH (08:30)
[2024-02-09] MEDS: PARoxetine HCL 10 MG TAB PO SCH (08:30)
[2024-02-09] MEDS: CLOPIDOGREL 75 MG TABLET PO SCH (08:31)
[2024-02-09] MEDS: LOSARTAN POTASSIUM 50 MG TABLET PO SCH (08:31)
[2024-02-09] MEDS: ASPIRIN EC 81 MG TAB PO SCH (08:31)
[2024-02-09] MEDS: ENOXAPARIN 40 MG/0.4 ML SQ SCH (08:31)
[2024-02-09 08:52] VITALS: O2SAT 94
--- NOTE | 2024-02-09 09:25 | P.PN ---
Subjective Date of Service: 02/09/24 Chief Complaint: Dizziness, dehydration, DM with hyperglycemia Pt is resting comfortably in bed. Pt reports that she feels dizzy. She feels like the the room is spinning around her. Consulted PT for Kyrie Maneuver. No other complaints. Review of Systems General: Unremarkable Eyes: Unremarkable ENT: Unremarkable Respiratory: Unremarkable Cardiovascular: Unremarkable Gastrointestinal: Unremarkable Genitourinary: Unremarkable Musculoskeletal: Unremarkable Integumentary: Unremarkable Neurological: Other (dizziness) Lymphatics: Unremarkable Physical Examination - Vital Signs Temperature: 97.0 F Blood Pressure: 149/69 Pulse: 79 Respirations: 16 Pulse Ox (%): 95 - Physical Exam General: Alert, In no apparent distress, Oriented x3 HEENT: Atraumatic, Normocephalic, PERRLA Neck: Supple, 2+ carotid pulse no bruit, JVD not distended Respiratory: Clear to auscultation bilaterally, Normal air movement Cardiovascular: No edema, Normal pulses, Regular rate/rhythm, Normal S1 S2 Capillary refill: <2 Seconds Gastrointestinal: Normal bowel sounds, Soft and benign, Non-distended Musculoskeletal: No clubbing, No swelling, No contractures Integumentary: No rashes, No breakdown, No significant lesion Neurological: Normal gait, Normal speech, Normal strength at 5/5 x4 extr, Normal tone, Sensation intact, Other (dizziness) Lymphatics: No axilla or inguinal lymphadenopathy Assessment And Plan - Plan Vertigo: Unknown etiology. Will f/u orthostatic vital sign. CT head is unremarkable. Unable to do MRI brain due to presence of pacemaker. Will continue meclizine. Will consult PT for Kyrie maneuver. Htn: Will continue home med HLD: statin DM II: Continue accuchek, SSI, lantus 20u qhs, and ADA diet. DVT ppx: lovenox Code: full Dispo: Pending hospital course
[2024-02-10 05:18] LABS: Absolute Eosinophils 0.1 K/uL (0-0.5); Absolute Lymphocytes (CBC) 1.5 K/uL (0.7-4.9); Absolute Monocytes 0.4 K/uL (0.1-1.3); Absolute Neutrophil 3.1 K/uL (1.8-8.0); Basophils % 0.8 % (0-1.3); Eosinophils % 2.2 % (0-4.4); Hematocrit 35.1 % (36.0-45.0); Hemoglobin 11.8 g/dL (12.0-15.0); Lymphocytes % 28.4 % (15.3-44.8); MCH 28.3 pg (27.0-35.0); MCHC 33.5 g/dL (32.0-36.0); MCV 84.5 fL (80-100); MPV 10.7 fL (7.6-11.3); Monocytes % 8.7 % (3.3-12.3); Neutrophils % 59.9 % (41.7-73.7); Platelets 158 thou/uL (152-406); RBC Red Blood Cell Count 4.16 M/uL (3.86-4.86); Red Cell Distribution Width 14.3 % (12.1-15.2)
[2024-02-10 05:41] LABS: ALT/SGPT 17 U/L (13-56); Albumin 3.2 g/dL (3.4-5.0); Albumin/Globulin Ratio 0.9 (1.1-1.8); Alkaline Phosphatase 139 U/L (45-117); Anion Gap 8.3 mEq/L (5.0-15.0); BUN Blood Urea Nitrogen 22 mg/dL (7-18); Bicarbonate 28 mEq/L (21-32); Bilirubin Total 0.4 mg/dL (0.2-1.0); Globulin 3.5 g/dL (2.3-3.5); Glomerular Filtration Rate 67 ml/min (=/>90); Glucose Level 155 mg/dL (74-106); Magnesium 1.9 mg/dL (1.6-2.4); Potassium 4.3 mEq/L (3.5-5.1); Protein, Total 6.7 g/dL (6.4-8.2); Sodium Level 139 mEq/L (136-145)
[2024-02-10 05:54] LABS: AST/SGOT < 10 U/L (15-37)
[2024-02-10 08:40] VITALS: BP 148/67; TEMP 97.5
--- NOTE | 2024-02-10 12:37 | P.DS ---
Admission Date: 02/09/24 Discharge Date: 02/10/24 Disposition: ROUTINE DISCHARGE Discharge Condition: GOOD Reason for Admission: Dizziness, dehydration, DM with hyperglycemia Brief History of Present Illness: Ms. Barrett is a 73-year-old female with a past medical history of syncope but is now status post pacemaker which resolved syncopal events, hypertension, hyperlipidemia, and type 2 diabetes. Patient was in her normal state of health when she laid down for bed last evening. She states she got a little bit dizzy at that time. Getting up to void has been difficult as when she rises she becomes dizzy. She did get nauseated and vomited x 1. She states she has never had vertigo. CT head in the emergency department is negative for acute findings, unable to obtain MRI secondary to patient's pace maker. Chest x-ray shows no evidence of acute intrathoracic disease. Left subclavian bipolar pacemaker present. Laboratory evaluation in the emergency department reveals a normal CBC, sodium 134, potassium 3.9, glucose 349, BUN 31, creatinine 1.07 with a GFR of 55, no transaminitis, mag 1.7, no overload findings, troponin 15.3, TSH 0.925, C-reactive protein negative, lactate 2.7 and then repeat 2.0. We will admit her for observation for neurochecks and monitoring. Hospital Course: Ms. Barrett had resolution of her vertigo symptoms, worked with PT without dizziness, orthostatics were normal. She was approved for a front wheeled walker. Again she worked with PT and transfers well on her own. Urine micro returned today with 2+ gram-negative rods. We will start Cipro 500 mg p.o. twic e daily x 10 days #20. She should resume her regular medications. A prescription for meclizine and at home information sheet on the Kyrie maneuver will also be given. She will need follow-up with her PCP in 1 week. Opportunities for questions given and patient voices understanding of treatment plan and follow-up. Vital Signs/Physical Exam: Temp Pulse Resp BP Pulse Ox 97.5 F 87 15 148/67 H 94 02/10/24 08:00 02/10/24 08:00 02/10/24 08:00 02/10/24 08:00 02/10/24 08:00 Laboratory Data at Discharge: WBC 5.10 thou/uL (4.3-10.9) 02/10/24 04:18 Hgb 11.8 g/dL (12.0-15.0) L 02/10/24 04:18 Hct 35.1 % (36.0-45.0) L 02/10/24 04:18 Plt Count 158 thou/uL (152-406) 02/10/24 04:18 PT 11.2 SECONDS (9.4-12.5) 02/08/24 06:10 INR 1.00 02/08/24 06:10 Sodium 139 mEq/L (136-145) 02/10/24 04:18 Potassium 4.3 mEq/L (3.5-5.1) 02/10/24 04:18 BUN 22 mg/dL (7-18) H 02/10/24 04:18 Creatinine 0.90 mg/dL (0.55-1.02) 02/10/24 04:18 Glucose 155 mg/dL (74-106) H 02/10/24 04:18 Magnesium 1.9 mg/dL (1.6-2.4) 02/10/24 04:18 Total Bilirubin 0.4 mg/dL (0.2-1.0) 02/10/24 04:18 AST < 10 U/L (15-37) L 02/10/24 04:18 ALT 17 U/L (13-56) 02/10/24 04:18 Alkaline Phosphatase 139 U/L (45-117) H 02/10/24 04:18 Triglycerides 146 mg/dL (<150) 02/09/24 06:28 Cholesterol 126 mg/dL (<200) 02/09/24 06:28 HDL Cholesterol 43 mg/dL (40-60) 02/09/24 06:28 Cholesterol/HDL Ratio 2.93 02/09/24 06:28 Home Medications: Atorvastatin Calcium [Lipitor*] 20 mg PO DAILY 08/26/13 Losartan Potassium [Cozaar*] 1 tab PO DAILY 08/26/13 Metformin HCl [Glucophage] 1,000 mg PO BIDWM 09/03/15 Clopidogrel Bisulfate [Plavix*] 75 mg PO DAILY #30 tablet 09/04/15 glipiZIDE [Glipizide ER] 10 mg PO BID 11/08/16 Ascorbic Acid [Vitamin C] 250 mg PO DAILY 09/15/17 Aspirin [Adult Aspirin Regimen] 81 mg PO DAILY 09/15/17 Latanoprost [Xalatan] 1 drop OP BEDTIME 09/15/17 Pregabalin [Lyrica*] 75 mg PO BID 09/15/17 Cholecalciferol (Vitamin D3) [Vitamin D3] 1 tab PO DAILY 02/27/20 Cyanocobalamin (Vitamin B-12) [Vitamin B-12] 1 tab PO DAILY 02/27/20 Dexlansoprazole [Dexilant] 60 mg PO BREAKFAST 02/27/20 levoFLOXacin [Levaquin*] 500 mg PO DAILY #7 tab 12/03/22 metroNIDAZOLE [Metronidazole] 500 mg PO TID #15 tab 12/03/22 Ciprofloxacin HCl [Cipro 500 MG Tablet] 500 mg PO BID #20 tab 02/10/24 Meclizine HCl [Verticalm] 25 mg PO TID PRN #30 tab 02/10/24 New Medications: Ciprofloxacin HCl [Cipro 500 MG Tablet] 500 mg PO BID #20 tab Meclizine HCl [Verticalm] 25 mg PO TID PRN #30 tab PRN Reason: vertigo Physician Discharge Instructions: Ms. Barrett had resolution of her vertigo symptoms, worked with PT without dizziness, orthostatics were normal. She was approved for a front wheeled walker. Again she worked with PT and transfers well on her own. Urine micro returned today with 2+ gram-negative rods. We will start Cipro 500 mg p.o. twice daily x 10 days #20. She should resume her regular medications. A prescription for meclizine and at home information sheet on the Kyrie maneuver will also be given. She will need follow-up with her PCP in 1 week. Opportunities for questions given and patient voices understanding of treatment plan and follow-up. New medications Cipro 500mg po BID x 10d #20 Meclizine 25mg po q6h prn vertigo -DC IV and DC home -Follow-up with PCP in 1 to 2 weeks -Follow-up with Neurology or ENT in 1 to 2 weeks to evaluate vertigo -Please call Dr. Scott at [phone] if any questions regarding hospital stay -Please call nursing station at [phone] if any nursing or medication questions -Return to the emergency room if symptoms worsen Diet: Low sodium Activity: Fall precautions Followup: Flynn Medina, PAC [Primary Care Provider] - Dariusz Enrique MD [ASSOCIATE-ACTIVE - CAN ADMIT] - Irene Burris MD [ACTIVE - CAN ADMIT] -
[2024-02-10] MEDS ORDERED: CIPROFLOXACIN HCL 500 MG TAB PO SCH (13:00)
[2024-02-10] MEDS ORDERED: Levofloxacin500mg IV 500 MG/100 ML BAG IV SCH (13:00)
== END 2024-02-10 12:24 | disposition home or self-care (01) | DRG 149 ==
LOC: ER 04:55 → ERHOLD 12:51 → 2ND 14:13 → OBSVTOIN 02-09 14:44
PROVIDERS: ADMIT Hospitalist; ATTEND Hospitalist
DX: R42 Dizziness and giddiness (principal); N30.90 Cystitis, unspecified without hematuria; E86.0 Dehydration; E78.5 Hyperlipidemia, unspecified; E11.65 Type 2 diabetes mellitus with hyperglycemia; I10 Essential (primary) hypertension; Z95.0 Presence of cardiac pacemaker; Z98.51 Tubal ligation status; Z79.82 Long term (current) use of aspirin; Z90.49 Acquired absence of other specified parts of digestive tract; Z79.84 Long term (current) use of oral hypoglycemic drugs; Z79.02 Long term (current) use of antithrombotics/antiplatelets; Z86.73 Personal history of transient ischemic attack (TIA), and cerebral infarction without residual deficits; Z79.899 Other long term (current) drug therapy; Z90.710 Acquired absence of both cervix and uterus
CPT/HCPCS: 36415; 70450; 71045; 80048; 80053; 80061; 80076; 81001; 82533; 82947; 83605; 83735; 83880; 84439; 84443; 84484; 85025; 85610; 86140; 87040; 87077; 87086; 87088; 87186; 93005; 93880; 97112; 97116; 97161; 97530; 99285; G0378; J1650; J2405; J2470; J3360; J3475; J7030; J7040; J8597; Q0169